=== PATIENT | female | born 1980 | race Caucasian/White ===

== ENCOUNTER → 2020-06-27 10:06 | Outpatient (BNVA) | payer MEDICARE, MEDICAID, SELFPAY | PROVIDERS: PCP Internal Medicine; Visit Provider Hospitalist | DX: J45.50 Severe persistent asthma, uncomplicated (principal); J84.9 Interstitial pulmonary disease, unspecified; D80.1 Nonfamilial hypogammaglobulinemia; F17.210 Nicotine dependence, cigarettes, uncomplicated; Z79.52 Long term (current) use of systemic steroids | CPT/HCPCS: 99212 ==

== ENCOUNTER → 2020-09-27 09:11 | Outpatient (BNVA) | payer MEDICARE, MEDICAID, SELFPAY | PROVIDERS: PCP Internal Medicine; Visit Provider Hospitalist | DX: Z76.89 Persons encountering health services in other specified circumstances (principal) | CPT/HCPCS: 99212 ==

== ENCOUNTER 2020-12-25 13:36 | Outpatient (REF) | payer OTHER, SELFPAY ==
--- NOTE | ~2020-12-25 | XR_ITS ---
EXAMINATION: XR CHEST CLINICAL INFORMATION: COPD. COMPARISON: 10/08/2019 and 06/04/2017 TECHNIQUE: Two views of the chest were obtained. FINDINGS: There is no evidence of acute parenchymal disease, pneumothorax, or pleural effusion. Heart normal size. No evidence of pulmonary edema. Suture line from previous left lung surgery again seen. Bilateral old healed rib fractures present. XR/XR chest 2V IMPRESSION: No acute disease.
[2020-12-25 14:45] LABS: MANUAL DIFF FLAG NO
[2020-12-25 14:47] LABS: Basophils Absolute Auto 0.1 X10*3/uL (0.0-0.2); Basophils Percent Auto 0.9 % (0-2); Eosinophils Absolute Auto 0.1 X10*3/uL (0.0-0.4); Eosinophils Percent Auto 0.8 % (0-4); Hemoglobin 14.8 g/dl (12.0-16.0); Imm Gran Abs Auto 0.24 X10*3/uL (0.00-0.03); Imm Gran Pct Auto 1.7 % (0.0-0.4); Lymphocytes Percent Auto 13.9 % (20-40); Mean Corpuscular HGB Conc 32.2 g/dl (31.0-35.0); Mean Corpuscular Hemoglobin 28.2 pg (27.0-33.0); Mean Corpuscular Volume 87.8 fL (80-98); Mean Platelet Volume 11.3 fL (9.4-12.3); Monocytes Absolute Auto 0.6 X10*3/uL (0.1-1.2); Monocytes Percent Auto 4.4 % (2-11); Neutrophils Absolute Auto 11.4 X10*3/uL (2.0-8.3); Neutrophils Percent Auto 78.3 % (45-73); Platelet Count 232 X10*3/uL (160-400); Red Blood Count 5.24 X10*6/uL (4.20-5.50); Red Cell Distribution Width 16.9 % (11.0-16.0); White Blood Count 14.5 X10*3/uL (4.8-10.8)
[2020-12-25 15:19] LABS: Anion Gap 16 (12-20); Blood Urea Nitrogen 12 mg/dL (9-16); Calcium 9.5 mg/dL (8.4-10.2); Carbon Dioxide 25 mmol/L (22-29); Chloride 103 mmol/L (96-108); Estimated Glomerular Filt Rate > 60; Glucose Random 96 mg/dL (60-115); Potassium 4.6 mmol/L (3.3-5.1); Sodium 139 mmol/L (135-145)
[2020-12-25 15:27] LABS: Erythrocyte Sedimentation Rate 23 MM/HR (0-20)
[2020-12-27 21:53] LABS: Immunoglobulin E <2 kU/L (<OR=114)
[2020-12-28 12:21] LABS: IgA 137 mg/dL (47-310); IgG 786 mg/dL (600-1640); IgM 63 mg/dL (50-300)
== END 2020-12-25 13:37 | disposition home or self-care (01) ==
LOC: HO.LAB 13:36
PROVIDERS: PCP Internal Medicine; Visit Provider Hospitalist
DX: J44.9 Chronic obstructive pulmonary disease, unspecified (principal); J84.9 Interstitial pulmonary disease, unspecified; D80.1 Nonfamilial hypogammaglobulinemia; R05 Cough; F17.210 Nicotine dependence, cigarettes, uncomplicated; Z71.6 Tobacco abuse counseling
CPT/HCPCS: 36415; 71046; 80048; 82784; 82785; 85025; 85652; 99212

== ENCOUNTER 2021-01-22 11:02 | Outpatient (REF) | payer OTHER, SELFPAY ==
[2021-01-22 12:25] LABS: MANUAL DIFF FLAG NO
[2021-01-22 12:29] LABS: Basophils Absolute Auto 0.1 X10*3/uL (0.0-0.2); Basophils Percent Auto 0.4 % (0-2); Eosinophils Absolute Auto 0.1 X10*3/uL (0.0-0.4); Eosinophils Percent Auto 0.4 % (0-4); Hematocrit 44.4 % (37-47); Hemoglobin 14.4 g/dl (12.0-16.0); Imm Gran Abs Auto 0.39 X10*3/uL (0.00-0.03); Lymphocytes Percent Auto 15.5 % (20-40); Mean Corpuscular HGB Conc 32.4 g/dl (31.0-35.0); Mean Corpuscular Hemoglobin 28.5 pg (27.0-33.0); Mean Corpuscular Volume 87.7 fL (80-98); Mean Platelet Volume 10.6 fL (9.4-12.3); Monocytes Percent Auto 5.3 % (2-11); Neutrophils Percent Auto 76.4 % (45-73); Platelet Count 261 X10*3/uL (160-400); Red Blood Count 5.06 X10*6/uL (4.20-5.50); Red Cell Distribution Width 16.5 % (11.0-16.0); White Blood Count 19.6 X10*3/uL (4.8-10.8)
[2021-01-22 12:41] LABS: Alanine Aminotransferase 24 U/L (0-31); Albumin Level 3.9 g/dL (3.5-5.0); Alkaline Phosphatase 78 U/L (39-117); Anion Gap 14 (12-20); Aspartate Amino Transferase 15 U/L (5-31); Bilirubin Direct 0.2 mg/dL (0.0-0.5); Bilirubin Total 0.5 mg/dL (0.0-1.0); Blood Urea Nitrogen 10 mg/dL (9-16); Calcium 9.4 mg/dL (8.4-10.2); Carbon Dioxide 24 mmol/L (22-29); Chloride 106 mmol/L (96-108); Estimated Glomerular Filt Rate > 60; Glucose Random 102 mg/dL (60-115); Potassium 3.5 mmol/L (3.3-5.1); Sodium 140 mmol/L (135-145); Total Protein 6.5 g/dL (6.5-8.0)
[2021-01-22 13:04] LABS: TSH reflex Free T4 1.15 uIU/mL (0.32-4.0)
[2021-01-22 13:13] LABS: Erythrocyte Sedimentation Rate 27 MM/HR (0-20)
[2021-01-23 18:32] LABS: Immunoglobulin G Subclass 1 380 mg/dL (382-929); Immunoglobulin G Subclass 2 275 mg/dL (241-700); Immunoglobulin G Subclass 3 23 mg/dL (22-178); Immunoglobulin G Subclass 4 15.3 mg/dL (4-86); Immunoglobulin G Total 739 mg/dL (600-1640)
[2021-01-24 04:57] LABS: Immunoglobulin E <2 kU/L (<OR=114)
[2021-01-24 13:57] LABS: IgA 143 mg/dL (47-310); IgG 757 mg/dL (600-1640); IgM 62 mg/dL (50-300)
== END 2021-01-22 11:03 | disposition home or self-care (01) ==
LOC: HO.LAB 11:02
PROVIDERS: PCP Internal Medicine; Visit Provider Hospitalist
DX: J45.50 Severe persistent asthma, uncomplicated (principal); J84.9 Interstitial pulmonary disease, unspecified; D80.1 Nonfamilial hypogammaglobulinemia; R00.0 Tachycardia, unspecified; R05 Cough; F17.200 Nicotine dependence, unspecified, uncomplicated; Z71.6 Tobacco abuse counseling
CPT/HCPCS: 36415; 80048; 80076; 82784; 82785; 84443; 85025; 85652; 96372; 99212; J2930

== ENCOUNTER → 2021-02-06 13:18 | Outpatient (BNVA) | payer OTHER, SELFPAY | PROVIDERS: PCP Internal Medicine; Visit Provider Hospitalist | DX: J84.9 Interstitial pulmonary disease, unspecified (principal); D80.1 Nonfamilial hypogammaglobulinemia; J44.9 Chronic obstructive pulmonary disease, unspecified; R05 Cough; F17.200 Nicotine dependence, unspecified, uncomplicated | CPT/HCPCS: 99212 ==

== ENCOUNTER → 2021-04-03 13:04 | Outpatient (BNVA) | payer OTHER, SELFPAY | PROVIDERS: PCP Internal Medicine; Visit Provider Hospitalist | DX: J44.9 Chronic obstructive pulmonary disease, unspecified (principal); J84.9 Interstitial pulmonary disease, unspecified; D80.1 Nonfamilial hypogammaglobulinemia; F17.200 Nicotine dependence, unspecified, uncomplicated; Z79.899 Other long term (current) drug therapy | CPT/HCPCS: 99212 ==

== ENCOUNTER → 2021-07-03 12:58 | Outpatient (BNVA) | payer OTHER, SELFPAY | PROVIDERS: PCP Internal Medicine; Visit Provider Hospitalist | DX: J44.9 Chronic obstructive pulmonary disease, unspecified (principal); J45.50 Severe persistent asthma, uncomplicated; J84.9 Interstitial pulmonary disease, unspecified; D80.1 Nonfamilial hypogammaglobulinemia; R05.9 Cough, unspecified; F17.210 Nicotine dependence, cigarettes, uncomplicated; Z88.8 Allergy status to other drugs, medicaments and biological substances; Z88.0 Allergy status to penicillin; Z91.013 Allergy to seafood; Z79.52 Long term (current) use of systemic steroids | CPT/HCPCS: 99212 ==

== ENCOUNTER 2021-10-25 08:50 | Outpatient (REF) | payer OTHER, SELFPAY ==
--- NOTE | ~2021-10-25 | XR_ITS ---
EXAMINATION: XR chest 2V CLINICAL INFORMATION: Reason for Exam J44.9 - Chronic obstructive pulmonary disease, unspecified COMPARISON: Chest radiograph 12/25/2020 TECHNIQUE: 2 views of the chest XR/XR chest 2V FINDINGS/IMPRESSION: Clear lungs. No pneumothorax. No pleural effusion. Normal cardiomediastinal silhouette. New subacute appearing left posterior seventh rib fracture. Chronic healed left lateral ninth rib fracture appears unchanged from prior. Upper abdominal surgical clips.
[2021-10-25 09:58] LABS: MANUAL DIFF FLAG NO
[2021-10-25 10:11] LABS: Hematocrit 45.1 % (37.0-47.0); Hemoglobin 14.4 g/dl (12.0-16.0); Mean Corpuscular HGB Conc 31.9 g/dl (31.0-35.0); Mean Corpuscular Hemoglobin 29.5 pg (27.0-33.0); Mean Corpuscular Volume 92.4 fL (80.0-98.0); Red Blood Count 4.88 X10*6/uL (4.20-5.50); White Blood Count 11.3 X10*3/uL (4.8-10.8)
[2021-10-25 10:12] LABS: Basophils Absolute Auto 0.1 X10*3/uL (0.0-0.2); Eosinophils Absolute Auto 0.3 X10*3/uL (0.0-0.4); Eosinophils Percent Auto 2.4 % (0-4); Imm Gran Abs Auto 0.26 X10*3/uL (0.00-0.03); Imm Gran Pct Auto 2.3 % (0.0-0.4); Lymphocytes Absolute Auto 3.5 X10*3/uL (1.2-4.9); Lymphocytes Percent Auto 30.7 % (20-40); Mean Platelet Volume 10.2 fL (9.4-12.3); Monocytes Absolute Auto 0.8 X10*3/uL (0.1-1.2); Monocytes Percent Auto 6.9 % (2-11); Neutrophils Absolute Auto 6.4 x10*3/uL (2.0-8.3); Neutrophils Percent Auto 56.7 % (45-73); Platelet Count 248 X10*3/uL (160-400); Red Cell Distribution Width 16.4 % (11.0-16.0)
[2021-10-25 10:46] LABS: Alanine Aminotransferase 13 U/L (0-31); Albumin Level 3.6 g/dL (3.5-5.0); Alkaline Phosphatase 58 U/L (39-117); Anion Gap 13 (12-20); Aspartate Amino Transferase 11 U/L (5-31); Bilirubin Direct < 0.2 mg/dL (0.0-0.5); Bilirubin Total < 0.2 mg/dL (0.0-1.0); Blood Urea Nitrogen 12 mg/dL (9-16); Carbon Dioxide 24 mmol/L (22-29); Chloride 108 mmol/L (96-108); Estimated Glomerular Filt Rate > 60; Glucose Random 84 mg/dL (60-115); Potassium 4.6 mmol/L (3.3-5.1); Sodium 140 mmol/L (135-145); Total Protein 5.8 g/dL (6.5-8.0)
[2021-10-25 10:49] LABS: Erythrocyte Sedimentation Rate 11 MM/HR (0-20)
[2021-10-27 04:12] LABS: Immunoglobulin E <2 kU/L (<OR=114)
[2021-10-28 10:06] LABS: SARS COV2 IgG Positive (Negative)
[2021-10-29 13:01] LABS: Immunoglobulin G Subclass 1 299 mg/dL (382-929); Immunoglobulin G Subclass 2 205 mg/dL (241-700); Immunoglobulin G Subclass 3 25 mg/dL (22-178); Immunoglobulin G Subclass 4 16.4 mg/dL (4-86); Immunoglobulin G Total 560 mg/dL (600-1640)
== END 2021-10-25 08:51 | disposition home or self-care (01) ==
LOC: HO.XRAY 08:50
PROVIDERS: PCP Internal Medicine; Visit Provider Hospitalist
DX: J84.9 Interstitial pulmonary disease, unspecified (principal); J44.9 Chronic obstructive pulmonary disease, unspecified; J45.50 Severe persistent asthma, uncomplicated; D80.1 Nonfamilial hypogammaglobulinemia; F17.210 Nicotine dependence, cigarettes, uncomplicated; U09.9 Post COVID-19 condition, unspecified
CPT/HCPCS: 36415; 71046; 80048; 80076; 82784; 82785; 85025; 85652; 86769; 99212

== ENCOUNTER 2022-01-04 12:53 | Outpatient (REF) | payer OTHER, SELFPAY ==
--- NOTE | 2022-01-04 | PFT_ITS ---
FLOWS: FEV1 of 67% of predicted at 1.98 L. FVC of 75% of predicted at 2.70 L. FEV1 to FVC ratio of 0.74. No bronchodilator response. LUNG VOLUMES: Total lung capacity 85% of predicted at 4.19 L. Residual volume 103% of predicted at 1.58 L. Slow vital capacity 77% of predicted at 2.61 L. Expiratory reserve volume 16% of predicted at 0.19 L. Diffusion capacity is mildly decreased. IMPRESSION: No obstructive or restrictive ventilatory defect. Decreased expiratory reserve volume suggests extrathoracic restriction. Decreased diffusion capacity suggests emphysema. Nelson Mckeon MD AP/MODL / [id number]
== END 2022-01-04 12:54 | disposition home or self-care (01) ==
LOC: HO.RESP 12:53
PROVIDERS: PCP Internal Medicine; Visit Provider Hospitalist
DX: J45.909 Unspecified asthma, uncomplicated (principal); F17.210 Nicotine dependence, cigarettes, uncomplicated
CPT/HCPCS: 94060; 94727; 94729

== ENCOUNTER → 2022-01-25 12:50 | Outpatient (BNVA) | payer OTHER, SELFPAY | PROVIDERS: PCP Internal Medicine; Visit Provider Hospitalist | DX: J44.9 Chronic obstructive pulmonary disease, unspecified (principal); R05.9 Cough, unspecified; R00.0 Tachycardia, unspecified; U09.9 Post COVID-19 condition, unspecified; J84.9 Interstitial pulmonary disease, unspecified; D80.1 Nonfamilial hypogammaglobulinemia; F17.200 Nicotine dependence, unspecified, uncomplicated; Z79.82 Long term (current) use of aspirin; Z79.899 Other long term (current) drug therapy | CPT/HCPCS: 99212 ==

== ENCOUNTER → 2022-05-24 13:07 | Outpatient (BNVA) | payer OTHER, SELFPAY | PROVIDERS: PCP Internal Medicine; Visit Provider Hospitalist | DX: J44.9 Chronic obstructive pulmonary disease, unspecified (principal); J84.9 Interstitial pulmonary disease, unspecified; F17.200 Nicotine dependence, unspecified, uncomplicated; D80.1 Nonfamilial hypogammaglobulinemia; U09.9 Post COVID-19 condition, unspecified | CPT/HCPCS: 99212 ==

== ENCOUNTER → 2022-09-24 13:02 | Outpatient (BNVA) | payer OTHER, SELFPAY | PROVIDERS: PCP Internal Medicine; Visit Provider Hospitalist | DX: Z13.89 Encounter for screening for other disorder (principal) ==

== ENCOUNTER 2022-09-24 13:26 | Outpatient (REF) | payer OTHER, SELFPAY ==
--- NOTE | 2022-09-24 15:21 | PFT_ITS ---
INDICATION: Asthma. SPIROMETRY: FEV1 to FVC of 77% with an FEV1 of 2.14 L, which is 73% predicted and an FVC of 2.78 L, which is 77% predicted. No significant response to bronchodilator is noted. Maximum voluntary ventilation 60% of predicted. LUNG VOLUMES: Total lung capacity 88% predicted. DIFFUSION CAPACITY: DLCO of 69% of predicted. COMPARISONS: PFTs from 01/04/2022. INTERPRETATION: No obstructive, nor restrictive ventilatory defects identified. There is evidence of small airway disease consistent with a history of asthma and a moderate decrease in the maximum voluntary ventilation secondary to likely deconditioning. Lung volumes are normal except for decrease in the expiratory reserve volume secondary to an elevated BMI. The patient does have a mild diffusion impairment. When compared to December 2021, there is no significant change in the FVC, significant improvement in the FEV1, trend of decrease in the maximum voluntary ventilation, trend of improvement in the lung capacity, and trend of improvement in diffusion capacity. Clinical correlation warranted. MD DAREN Doshi/MODL / [id number]
== END 2022-09-24 13:27 | disposition home or self-care (01) ==
LOC: HO.RESP 13:26
PROVIDERS: PCP Internal Medicine; Visit Provider Hospitalist
DX: J44.9 Chronic obstructive pulmonary disease, unspecified (principal); U07.1 COVID-19
CPT/HCPCS: 94060; 94727; 94729; 99212

== ENCOUNTER 2023-01-02 13:10 | Outpatient (REF) | payer OTHER, SELFPAY ==
[2023-01-02 13:57] LABS: MANUAL DIFF FLAG NO
[2023-01-02 14:02] LABS: Basophils Absolute Auto 0.1 X10*3/uL (0.0-0.2); Eosinophils Absolute Auto 0.2 X10*3/uL (0.0-0.4); Eosinophils Percent Auto 1.7 % (0-4); Hematocrit 46.9 % (37.0-47.0); Hemoglobin 15.6 g/dl (12.0-16.0); Imm Gran Abs Auto 0.18 X10*3/uL (0.00-0.03); Imm Gran Pct Auto 1.5 % (0.0-0.4); Lymphocytes Absolute Auto 3.1 X10*3/uL (1.2-4.9); Lymphocytes Percent Auto 25.5 % (20-40); Mean Corpuscular HGB Conc 33.3 g/dl (31.0-35.0); Mean Corpuscular Hemoglobin 31.8 pg (27.0-33.0); Mean Corpuscular Volume 95.5 fL (80.0-98.0); Mean Platelet Volume 10.7 fL (9.4-12.3); Monocytes Absolute Auto 0.8 X10*3/uL (0.1-1.2); Monocytes Percent Auto 6.9 % (2-11); Neutrophils Absolute Auto 7.6 x10*3/uL (2.0-8.3); Neutrophils Percent Auto 63.4 % (45-73); Platelet Count 198 X10*3/uL (160-400); Red Blood Count 4.91 X10*6/uL (4.20-5.50); Red Cell Distribution Width 15.9 % (11.0-16.0)
[2023-01-02 14:41] LABS: Erythrocyte Sedimentation Rate 23 MM/HR (0-20)
[2023-01-02 14:47] LABS: Anion Gap 12 (12-20); Blood Urea Nitrogen 8 mg/dL (9-16); Calcium 9.2 mg/dL (8.4-10.2); Carbon Dioxide 23 mmol/L (22-29); Chloride 109 mmol/L (96-108); Estimated Glomerular Filt Rate > 60; Glucose Random 81 mg/dL (60-115); Potassium 3.9 mmol/L (3.3-5.1); Sodium 140 mmol/L (135-145)
[2023-01-08 15:54] LABS: SARS COV2 IgG Positive (Negative)
== END 2023-01-02 13:11 | disposition home or self-care (01) ==
LOC: HO.LAB 13:10
PROVIDERS: PCP Family Medicine; Visit Provider Hospitalist
DX: J44.9 Chronic obstructive pulmonary disease, unspecified (principal); J84.9 Interstitial pulmonary disease, unspecified; D80.1 Nonfamilial hypogammaglobulinemia; F17.210 Nicotine dependence, cigarettes, uncomplicated; Z79.52 Long term (current) use of systemic steroids; Z20.822 Contact with and (suspected) exposure to COVID-19
CPT/HCPCS: 36415; 80048; 85025; 85652; 86769; 99212

== ENCOUNTER 2023-06-04 09:32 | Outpatient (REF) | payer OTHER, SELFPAY ==
[2023-06-04 10:56] LABS: MANUAL DIFF FLAG NO
[2023-06-04 11:16] LABS: Basophils Absolute Auto 0.1 X10*3/uL (0.0-0.2); Basophils Percent Auto 0.8 % (0-2); Eosinophils Absolute Auto 0.1 X10*3/uL (0.0-0.4); Eosinophils Percent Auto 0.6 % (0-4); Hematocrit 44.6 % (37.0-47.0); Hemoglobin 15.2 g/dl (12.0-16.0); Imm Gran Abs Auto 0.32 X10*3/uL (0.00-0.03); Imm Gran Pct Auto 2.2 % (0.0-0.4); Lymphocytes Absolute Auto 2.3 X10*3/uL (1.2-4.9); Lymphocytes Percent Auto 15.9 % (20-40); Mean Corpuscular HGB Conc 34.1 g/dl (31.0-35.0); Mean Corpuscular Hemoglobin 34.9 pg (27.0-33.0); Mean Corpuscular Volume 102.3 fL (80.0-98.0); Mean Platelet Volume 10.6 fL (9.4-12.3); Monocytes Absolute Auto 0.9 X10*3/uL (0.1-1.2); Neutrophils Absolute Auto 10.8 x10*3/uL (2.0-8.3); Neutrophils Percent Auto 74.5 % (45-73); Platelet Count 237 X10*3/uL (160-400); Red Blood Count 4.36 X10*6/uL (4.20-5.50); Red Cell Distribution Width 17.3 % (11.0-16.0); White Blood Count 14.4 X10*3/uL (4.8-10.8)
[2023-06-04 11:50] LABS: Alanine Aminotransferase 26 U/L (0-31); Albumin Level 3.9 g/dL (3.5-5.0); Alkaline Phosphatase 73 U/L (39-117); Anion Gap 12 (12-20); Aspartate Amino Transferase 18 U/L (5-31); Bilirubin Total 0.4 mg/dL (0.0-1.0); Blood Urea Nitrogen 9 mg/dL (9-16); C Reactive Protein 1.16 mg/dL (< or = 0.50); Calcium 9.6 mg/dL (8.4-10.2); Carbon Dioxide 23 mmol/L (22-29); Chloride 108 mmol/L (96-108); Estimated Glomerular Filt Rate > 60; Glucose Random 87 mg/dL (60-115); Lipase 30 U/L (8-78); Potassium 3.9 mmol/L (3.3-5.1); Sodium 139 mmol/L (135-145); Total Protein 7.3 g/dL (6.5-8.0)
[2023-06-04 12:05] LABS: Thyroid Stimulating Hormone 1.99 uIU/mL (0.32-4.0)
[2023-06-05 16:08] LABS: CDiff Gene PCR NEGATIVE (Negative)
[2023-06-06 09:25] LABS: Adenovirus F 40/41 Not Detected (Not Detect.); Astrovirus Not Detected (Not Detect.); Campylobacter Not Detected (Not Detect.); Cryptosporidium Not Detected (Not Detect.); Cyclospora cayetanensis Not Detected (Not Detect.); E. coli EAEC Not Detected (Not Detect.); E. coli EPEC Not Detected (Not Detect.); E. coli ETEC Not Detected (Not Detect.); E. coli STEC Not Detected (Not Detect.); Entamoeba histolytica Not Detected (Not Detect.); Giardia lamblia Not Detected (Not Detect.); Norovirus GI/GII Not Detected (Not Detect.); Plesiomonas shigelloides Not Detected (Not Detect.); Rotavirus A Not Detected (Not Detect.); Salmonella Not Detected (Not Detect.); Sapovirus Not Detected (Not Detect.); Shigella sp./EIEC Not Detected (Not Detect.); Vibrio Not Detected (Not Detect.); Vibrio Cholerae Not Detected (Not Detect.); Yersinia enterocolitica Not Detected (Not Detect.)
[2023-06-06 12:57] LABS: Transglutaminase IgA <1.0 U/mL
[2023-06-07 23:48] LABS: Fecal Fat Qualitative Normal (Normal)
[2023-06-08 14:28] LABS: Endomysial IgA Antibody Negative (Negative)
[2023-06-11 19:38] LABS: Calprotectin, Fecal 10 mcg/g
[2023-06-13 03:38] LABS: Pancreatic Elastase-1 >500 mcg/g
== END 2023-06-04 09:33 | disposition home or self-care (01) ==
LOC: HO.LAB 09:32
PROVIDERS: PCP Family Medicine; Visit Provider Physician Assistant
DX: K52.9 Noninfective gastroenteritis and colitis, unspecified (principal); D80.1 Nonfamilial hypogammaglobulinemia; J84.9 Interstitial pulmonary disease, unspecified; K58.9 Irritable bowel syndrome, unspecified; R19.8 Other specified symptoms and signs involving the digestive system and abdomen; Z87.19 Personal history of other diseases of the digestive system
CPT/HCPCS: 36415; 80053; 82656; 82705; 83690; 83993; 84443; 85025; 86140; 86231; 86364; 87493; 87507; 99202

== ENCOUNTER 2023-06-04 09:32 | Outpatient (AMB) | payer OTHER, SELFPAY ==
[2023-06-04 09:40] VITALS: BP 114/89; PULSE 130; O2SAT 97; BMI 38.0
--- NOTE | 2023-06-04 09:40 | MHC.OFFVIS ---
Intake Vital Signs 06/04/23 09:40 Height 5 ft 3 in Weight 214 lb 4.629 oz BMI 38.0 BP 114/89 Blood Pressure Location Lt brachial Position Sitting Pulse 130 H Pulse Source Pulse Oximeter Pulse Oximetry (%) 97 Oxygen Delivery Method Room Air Intake Visit Reasons: Abdominal, diarrhea, Intake Note: Pt presents to the office today for abdominal pain and diarrhea. Pt states she has been having bowel issues since 2012. Pt states she gets random bouts of lower abdominal pain and diarrhea multiple times a day. Pt denies any N/V. Allergies iodine [IODINE] Allergy (Severe, Verified 06/04/23 09:42) RASH Penicillins [PENICILLINS] Allergy (Severe, Verified 06/04/23 09:42) THROAT CLOSES SHELLFISH Allergy (Severe, Uncoded 06/04/23 09:42) RASH Medication List - Last Reconciled 06/04/23 by Emily Zhao PA-C aripiprazole 2 mg PO DAILY biotin 5 mg PO DAILY 30 days calcium carbonate 500 mg PO BID doxycycline hyclate 100 mg PO DAILY epinephrine IM PRN [id number]-yinkyhgjz-blzdkdco 200-62.5-25 mcg (Trelegy Ellipta) 1 inh inhalation DAILY 30 days folic acid 1 mg PO DAILY furosemide (Lasix) 20 mg PO DAILY 14 days gabapentin 100 mg PO TID immun glob G(IgG)-pro-IgA 0-50 1 gram/5 mL (20 %) (Hizentra) mL subcut ipratropium bromide 1 spray intranasal TID 30 days ipratropium-albuterol 0.5 mg-3 mg(2.5 mg base)/3 mL 3 mL inhalation QID lorazepam 0.5 mg PO DAILY PRN mirtazapine 15 mg PO BEDTIME montelukast 10 mg PO DAILY prazosin 1 mg PO BEDTIME prednisone 10 mg (2 x 5 mg) PO DAILY prednisone 3 mg (3 x 1 mg) PO DAILY trazodone 100 mg PO BEDTIME Ventolin HFA 90 mcg/actuation (albuterol sulfate) 2 puffs inhalation Q4H PRN NS HPI HPI Comments History of Present Illness Details A 42 y/o female referred after being evaluated by director of collections and archives in another facility. She presents today tells me that she went to [facility]- 3 weeks ago x 2-N/V/ D-epigastric pain dx- with pancreatitis- she had a CT scan-dx w/ pancreatitis- mild elevation in lipase-no real indication of pancreatitis She then was seen at [place] [facility]- all was revealed- NO pancreatitis-diphenoxyl 1 QID Shes not happy with provider there-then referrred to [facility] Today- C/o diarrhea- 5-6 times a day-since 2013 lory- Tacycardia typically> 11 0 No nausea, vomiting, hematemesis, hematochezia, fever, chills, chest pain or shortness of breath. She has no headaches or dizzinss [facility] Medical History (Updated 06/04/23 @ 13:57 by Emily Zhao PA-C) [id number] syndrome Tobacco dependence Asthma-COPD overlap syndrome Cough Hypogammaglobulinemia ILD (interstitial lung disease) Asthma Surgical History (Updated 06/04/23 @ 10:06 by Emily Zhao PA-C) Hx of cholecystectomy Family History (Updated 06/04/23 @ 10:06 by Emily Zhao PA-C) Family/Other No family history of colorectal cancer Social History Patient Tobacco Use Status: Current everyday Tobacco user Tobacco use type: Cigarette Cigarette Packs Per Day: 0.5 Cigarettes Per Day: 10 Years Smoked: 20 years Review of Systems Const All systems reviewed & are unremarkable except as noted in HPI and below Denies headache(s) ENT Denies dizziness and Denies headache(s) Card Denies chest pain and Denies dyspnea Resp Denies dyspnea GI Denies abdominal pain, Denies hematochezia, Reports GI cramping, Denies heartburn and Reports diarrhea Denies abnormal menses Musc Reports back pain Neuro Denies dizziness and Denies headache(s) Psych Reports anxiety and Reports depression Physical Exam Vital Signs: Last Vital Signs Pulse 130 H 06/04/23 09:40 BP 114/89 06/04/23 09:40 Pulse Ox 97 06/04/23 09:40 Oxygen Delivery Method Room Air 06/04/23 09:40 BMI result Body Mass Index 38.0 Const General: cooperative, comfortable and no acute distress Nutritional Appearance: overweight Limitations: no limitations Eyes Sclerae: sclerae normal Resp Effort & Inspection: normal respiratory effort and able to speak in complete sentences Auscultation: diminished lung sounds Cardio Other: [id number] Rate: tachycardic Rhythm: regular rhythm GI Palpation (GI): Soft to palpation, nontender and no guarding Auscultation: normal bowel sounds Skin General skin exam: no rashes or lesions noted Extrem General: Yes full ROM Psych Speech and movement: Clear speech present Affect: normal affect Attitude: cooperative Thought process: Normal thought process present Thought content: Normal thought content present Results Reviewed Results Reviewed: Reviewed previous GI note from [place]-05/15/23 Assessment & Plan Assessment & Plan (1) Chronic diarrhea: Code(s): K52.9 - Noninfective gastroenteritis and colitis, unspecified Plan: Labs Stool studies (2) Hypogammaglobulinemia: Code(s): D80.1 - Nonfamilial hypogammaglobulinemia (3) ILD (interstitial lung disease): Comment: persistent asthma in addition to chronic smoking related interstitial lung disease She has been steroid dependent Code(s): J84.9 - Interstitial pulmonary disease, unspecified (4) Hx of pancreatitis: Comment: Reviewing previous GI consult-pancreatitis was not indicated Will get labs for further eval Code(s): Z87.19 - Personal history of other diseases of the digestive system (5) Referred by another general practitioner: Comment: Seen by PCP, director of collections and archives, referred to [facility] for 2nd opinion Difficult to assess-due to previous documentation unclear dx Code(s): Z02.89 - Encounter for other administrative examinations Plan: Will consult with MD for any unusual /complex findings Plan Will consult with MD for any unusual /complex finding Orders: Orders Pancreatic Elastase-1 Today D80.1 - Nonfamilial hypogammaglobulinemia, K52.9 - Noninfective gastroenteritis and colitis, unspecified C Reactive Protein Today K52.9 - Noninfective gastroenteritis and colitis, unspecified Complete Blood Count Auto Diff Today K52.9 - Noninfective gastroenteritis and colitis, unspecified Comprehensive Met. Panel Today K58.9 - Irritable bowel syndrome without diarrhea GI Panel Today R19.7 - Diarrhea, unspecified Lipase Today D80.1 - Nonfamilial hypogammaglobulinemia, K52.9 - Noninfective gastroenteritis and colitis, unspecified, Z87.19 - Personal history of other diseases of the digestive system Calprotectin, Fecal Today R19.7 - Diarrhea, unspecified CDiff Gene PCR Today R19.7 - Diarrhea, unspecified Fecal Fat Qualitative Today K52.9 - Noninfective gastroenteritis and colitis, unspecified Endomysial IgA rflx Titer Today K52.9 - Noninfective gastroenteritis and colitis, unspecified Thyroid Stimulating Hormone Today R19.8 - Other specified symptoms and signs involving the digestive system and abdomen Transglutaminase IgA Today R19.7 - Diarrhea, unspecified Patient Instructions: Labs and stool studies today Continue usual medication Encouraged to call questions or concerns Opportunity for questions many asked answered to her satisfaction Quality Reporting (2019) Adult ([facility] 138/10/02/68) Smoking risk assessment performed?: Yes Patient Tobacco Use Status: Current everyday Tobacco user Coding Level of Care Code New Pt Level 4 (94661) Diagnoses Chronic diarrhea K52.9 Hypogammaglobulinemia D80.1 ILD (interstitial lung disease) J84.9 Hx of pancreatitis Z87.19 Referred by another general practitioner Z02.89 Time Spent (min) 45 Comment 2nd opinion
== END 2023-06-04 10:24 | disposition home or self-care (01) ==
PROVIDERS: PCP Family Medicine; Visit Provider Physician Assistant
DX: K52.9 Noninfective gastroenteritis and colitis, unspecified (principal); D80.1 Nonfamilial hypogammaglobulinemia; J84.9 Interstitial pulmonary disease, unspecified; Z87.19 Personal history of other diseases of the digestive system
CPT/HCPCS: 99204

== ENCOUNTER 2023-07-11 13:00 | Outpatient (AMB) | payer OTHER, SELFPAY ==
--- NOTE | 2023-07-11 13:04 | MHC.OFFVIS ---
Intake Vital Signs 07/11/23 13:06 Weight 217 lb 2.485 oz BP 118/78 Blood Pressure Location Rt brachial Position Sitting Pulse 112 H Pulse Source Pulse Oximeter Pulse Oximetry (%) 97 Oxygen Delivery Method Room Air Intake Visit Reasons: Asthma Allergies iodine [IODINE] Allergy (Severe, Verified 07/11/23 13:08) RASH Penicillins [PENICILLINS] Allergy (Severe, Verified 07/11/23 13:08) THROAT CLOSES SHELLFISH Allergy (Severe, Uncoded 07/11/23 13:08) RASH Medication List - Last Reconciled 07/11/23 by Izabela Tinsley LPN aripiprazole 2 mg PO DAILY azathioprine (Imuran) 150 mg (3 x 50 mg) PO DAILY 90 days biotin 5 mg PO DAILY 30 days calcium carbonate 500 mg PO BID doxycycline hyclate 100 mg PO DAILY epinephrine IM PRN hgnphyksush-ucgekjzwv-dybwmmfl 200-62.5-25 mcg (Trelegy Ellipta) 1 inh inhalation DAILY 30 days folic acid 1 mg PO DAILY furosemide (Lasix) 20 mg PO DAILY 14 days gabapentin 100 mg PO TID immun glob G(IgG)-pro-IgA 0-50 1 gram/5 mL (20 %) (Hizentra) mL subcut ipratropium bromide 1 spray intranasal TID 30 days ipratropium-albuterol 0.5 mg-3 mg(2.5 mg base)/3 mL 3 mL inhalation QID lorazepam 0.5 mg PO DAILY PRN mirtazapine 15 mg PO BEDTIME montelukast 10 mg PO DAILY prazosin 1 mg PO BEDTIME prednisone 10 mg (2 x 5 mg) PO DAILY prednisone 3 mg (3 x 1 mg) PO DAILY trazodone 100 mg PO BEDTIME Ventolin HFA 90 mcg/actuation (albuterol sulfate) 2 puffs inhalation Q4H PRN NS HPI HPI Comments History of Present Illness Details The patient is a 42 year-old woman known severe persistent asthma in addition to chronic smoking related interstitial lung disease in the form of respiratory bronchiolitis biopsy-proven and 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 05/24/2022 the patient is here for a pulmonary follow-up visit. Overall the patient has been doing relatively well. She is cutting down on the smoking significantly. Her mother is also quitting smoking which is making it easier for her. The patient has been able to decrease the prednisone down to 20 mg. she also continues on the Imuran. I am hopeful that we can start weaning down the prednisone further slowly by 1 mg once a week. A provide her with 1 mg tablets for her to be able to do so. She has been on chronic prednisone so therefore may be that she is going to be on a small dose chronically. Will have to address that when she is able to tolerate a lower dose. She continues to receive the Hizentra for her immunodeficiency. As far as her inhalers to responded very well to Trelegy. She feels that this is making a big difference in her life at this time. 09/24/2022 the patient is here for pulmonary follow-up visit. The patient continues to do relatively well. She had the flu and did take Tamiflu and she was sick during that time. The patient now has been weaning down for the prednisone course. She is down to 60 mg daily and she is slowly decreasing down to the goal of 10 mg daily. She also continues on the Imuran 150 mg daily. She does take folic acid and I will send for pot in order for her to address the adverse effects of alopecia. She unfortunately, she continues to smoke cigarettes. We have looked that a lot different options and alternatives to her to consider in order to provide the best smoking cessation. The patient does have issues with depression therefore Chantix would be dangerous as far as as her risk for worsening depression. Overall though her respiratory exam is better and she should continue to wean down from the prednisone. In the meantime she is going to work on trying to cut down the smoking by not smoking a full cigarettes at a time. Possibly using the same cigarettes 3-4 times to minimize on the smoke and the nicotine use. Will have her undergo pulmonary function studies and also have her consider pulmonary rehabilitation at this time which I do believe will be very effective in helping her with her underlying asthma COPD overlap syndrome in addition to helping her with her post COVID symptoms. 01/02/2023 the patient is here for pulmonary follow-up visit. The patient is doing very well. She is cutting down the prednisone down to 9 mg daily. She continues use her Trelegy with very good effect. She is also on Daliresp. Recently she was placed on Ozempic. She has lost about 13 lb. She also continues on the Imuran 150 mg daily. Her breathing significantly better. Chest not required her rescue inhaler and has not required any additional prednisone. Depression [facility] office also significantly better. Unfortunately she is still smoking. She is trying to quit although is very hard. We did review her pulmonary function studies that she had back in the winter of 2022 which demonstrated interval improvement in lung capacity which is reassuring. She was supposed to start pulmonary rehab but she is not able to at this time. I am hopeful that she can start pulmonary rehab soon. I do believe pulmonary rehab will be very affecting beneficial for the patient continues to get her IgG infusions. Will go ahead and check her blood work at this time. She is concerned about her COVID antibodies. She has not been vaccinated for COVID. 07/11/2023 the patient is here for a pulmonary follow-up visit. The patient overall has been doing better from a respiratory status. Unfortunately, she did develop pancreatitis and was admitted to the hospital briefly. Was felt to be drug-induced. The 2 potential culprits include the azathioprine and also the Daliresp. She stopped both. Her symptoms have been improving significantly. The patient has been able to be okay without the medications which is reassuring. She is also cutting down significantly on the smoking which is also helping the fact that she can come off the medicine. The patient also continues to be on 10 mg of prednisone. When she cut smoking further she is going to try cutting down slowly down to 7.5 mg daily she continues her respiratory therapy with good effect. Otherwise patient is without any other complaints. [facility] Medical History (Updated 07/13/23 @ 21:05 by Rafael Busch MD) [id number] syndrome Tobacco dependence Asthma-COPD overlap syndrome Cough Hypogammaglobulinemia ILD (interstitial lung disease) Asthma Surgical History (Updated 06/04/23 @ 10:06 by Emily Zhao PA-C) Hx of cholecystectomy Family History (Updated 06/04/23 @ 10:06 by Emily Zhao PA-C) Family/Other No family history of colorectal cancer Social History Patient Tobacco Use Status: Current everyday Tobacco user Tobacco use type: Cigarette Cigarette Packs Per Day: 0.5 Cigarettes Per Day: 10 Years Smoked: 20 years Review of Systems Const Denies night sweats and Reports weight gain ENT Denies change in voice, Denies lip swelling, Denies mouth pain, Reports nasal congestion, Reports nasal discharge and Denies tongue swelling Card Denies chest pain, Reports edema, Reports leg edema, Denies dyspnea and Reports dyspnea on exertion Resp Denies chest congestion, Reports cough, Denies dyspnea, Reports dyspnea on exertion and Denies wheezing GI Denies abdominal pain Musc Denies no additional complaints Neuro Denies Neuro-related abnormal movements Psych Denies no additional complaints Leroy/Lymph Denies easy bleeding and Denies lymphadenopathy Aller/Immun Denies lip swelling, Denies tongue swelling and Denies wheezing Physical Exam Vital Signs: Last Vital Signs Pulse 112 H 07/11/23 13:06 BP 118/78 07/11/23 13:06 Pulse Ox 97 07/11/23 13:06 Oxygen Delivery Method Room Air 07/11/23 13:06 Const General: alert Neck Neck: Yes normal visual inspection, Yes full ROM and Yes no lymphadenopathy Chest Chest palpation & inspection: normal inspection of the chest Resp Auscultation: no wheezes and diminished lung sounds Cardio Rate: tachycardic Rhythm: regular rhythm Heart sounds: S1 normal heart sound present and S2 normal heart sound present GI Palpation (GI): Soft to palpation and nontender Auscultation: normal bowel sounds Skin General skin exam: rashes and/or lesions noted Extrem General: No clubbing, No cyanosis and Yes edema Assessment & Plan Assessment & Plan (1) Asthma-COPD overlap syndrome: Code(s): J44.9 - Chronic obstructive pulmonary disease, unspecified (2) ILD (interstitial lung disease): Comment: persistent asthma in addition to chronic smoking related interstitial lung disease She has been steroid dependent Code(s): J84.9 - Interstitial pulmonary disease, unspecified (3) Tobacco dependence: Code(s): F17.200 - Nicotine dependence, unspecified, uncomplicated (4) Cough: Code(s): R05 - Cough Qualifiers: Cough type: chronic Qualified Code(s): R05.3 - Chronic cough (5) Hypogammaglobulinemia: Code(s): D80.1 - Nonfamilial hypogammaglobulinemia Plan continue prednisone 10mg daily Pulmonary rehab continue Ipratropium continue Trelegy 200 stopped Imuran 150mg daily/folic acid due to pancreatitis Tobacco cessation stopped Daliresp, continue singular continue IgG therapy follow-up 4-6 months Medications: New prednisone 10 mg PO DAILY 30 days 30 tabs 7RF Discontinued prednisone Discontinued Reason: Doctor's Order 10 mg (2 x 5 mg) PO DAILY 60 tabs 6RF azathioprine (Imuran) Discontinued Reason: Doctor's Order 150 mg (3 x 50 mg) PO DAILY 90 days 270 tabs 1RF Quality Reporting (2019) Adult ([facility] ) Smoking risk assessment performed?: Yes Patient Tobacco Use Status: Current everyday Tobacco user Coding Level of Care Code Est Pt Level 4 (76886) Diagnoses Asthma-COPD overlap syndrome J44.9 ILD (interstitial lung disease) J84.9 Tobacco dependence F17.200 Chronic cough R05.3 Cough type: chronic Hypogammaglobulinemia D80.1 Time Spent (min) 16
[2023-07-11 13:06] VITALS: BP 118/78; PULSE 112; O2SAT 97
== END 2023-07-11 13:26 | disposition home or self-care (01) ==
PROVIDERS: PCP Family Medicine; Visit Provider Hospitalist
DX: J44.9 Chronic obstructive pulmonary disease, unspecified (principal); J84.9 Interstitial pulmonary disease, unspecified; F17.200 Nicotine dependence, unspecified, uncomplicated; R05.3 Chronic cough; D80.1 Nonfamilial hypogammaglobulinemia
CPT/HCPCS: 99214

== ENCOUNTER → 2023-07-11 13:00 | Outpatient (BNVA) | payer OTHER, SELFPAY | PROVIDERS: PCP Family Medicine; Visit Provider Hospitalist | DX: J44.9 Chronic obstructive pulmonary disease, unspecified (principal); J84.9 Interstitial pulmonary disease, unspecified; D80.1 Nonfamilial hypogammaglobulinemia; R05.3 Chronic cough; F17.210 Nicotine dependence, cigarettes, uncomplicated | CPT/HCPCS: 99212 ==

== ENCOUNTER 2023-10-06 10:57 | Outpatient (AMB) | payer OTHER, SELFPAY ==
--- NOTE | 2023-10-06 11:06 | A.OFFVIS_ITS ---
Intake Vital Signs 10/06/23 11:10 Height 5 ft 3 in Weight 226 lb 10.163 oz BMI 40.1 BP 116/83 Blood Pressure Location Lt brachial Position Sitting Pulse 114 H Intake Visit Reasons: follow up on day T is here Intake Note: Patient is seen in office for follow up visit, following abdominal pain and diarrhea. 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 Accompanied by: Self / Same As Patient Allergies iodine [IODINE] Allergy (Severe, Verified 10/06/23 11:08) RASH Penicillins [PENICILLINS] Allergy (Severe, Verified 10/06/23 11:08) THROAT CLOSES SHELLFISH Allergy (Severe, Uncoded 10/06/23 11:08) RASH Medication List - Last Reconciled 10/06/23 by Emily Zhao PA-C aripiprazole 2 mg PO DAILY calcium carbonate 500 mg PO BID doxycycline hyclate 100 mg PO DAILY epinephrine IM PRN folic acid 1 mg PO DAILY gabapentin 100 mg PO TID immun glob G(IgG)-pro-IgA 0-50 1 gram/5 mL (20 %) (Hizentra) mL subcut ipratropium bromide 1 spray intranasal TID 30 days ipratropium-albuterol 0.5 mg-3 mg(2.5 mg base)/3 mL 3 mL inhalation QID lorazepam 0.5 mg PO DAILY PRN mirtazapine 15 mg PO BEDTIME montelukast 10 mg PO DAILY prazosin 1 mg PO BEDTIME prednisone 10 mg PO DAILY 30 days prednisone 3 mg (3 x 1 mg) PO DAILY trazodone 100 mg PO BEDTIME Ventolin HFA 90 mcg/actuation (albuterol sulfate) 2 puffs inhalation Q4H PRN NS HPI HPI Comments History of Present Illness Details A 42-year-old female hypogammaglobulonemia-s/p lory- 2014-seen initially in May for 2nd opinion who is history of pancreatitis here to follow-up. Seen by [facility]-previously [facility] when She has uncontrollable diarrhea-for years 5-6 loose/ watery QD-no blood - belly cramping mildly improves after BM Abdominal bloating-symptoms interrupt her daily activity she admits to frustration. 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 Tobacco dependence Asthma-COPD overlap syndrome Cough Hypogammaglobulinemia ILD (interstitial lung disease) Asthma Surgical History (Updated 06/04/23 @ 10:06 by Emily Zhao PA-C) Hx of cholecystectomy Family History (Updated 06/04/23 @ 10:06 by Emily Zhao PA-C) Family/Other No family history of colorectal cancer Social History Patient Tobacco Use Status: Current everyday Tobacco user Tobacco use type: Cigarette Cigarette Packs Per Day: 0.5 Cigarettes Per Day: 10 Years Smoked: 20 years Review of Systems Const All systems reviewed & are unremarkable except as noted in HPI and below Card Denies chest pain and Denies dyspnea Resp Denies dyspnea GI Denies abdominal pain, Reports bloating, Denies hematochezia, Reports tenesmus, Reports GI cramping, Denies heartburn, Reports diarrhea, Denies nausea, Denies vomiting and Denies hematemesis Physical Exam Vital Signs: Last Vital Signs Pulse 114 H 10/06/23 11:10 BP 116/83 10/06/23 11:10 BMI result Body Mass Index 40.1 Const General: cooperative and no acute distress Nutritional Appearance: overweight Orientation/consciousness: patient oriented x3 Limitations: no limitations Eyes Sclerae: sclerae normal Resp Effort & Inspection: normal respiratory effort and able to speak in complete sentences Auscultation: clear to auscultation bilaterally, no rales, no rhonchi and no wheezes Cardio Rate: tachycardic (A GA 100) Rhythm: regular rhythm Heart sounds: S1 normal heart sound present and S2 normal heart sound present GI Palpation (GI): Soft to palpation, Tenderness to palpation present (GI) (Diffuse tenderness), no guarding and No Rebound tenderness present Auscultation: normal bowel sounds Neuro General: patient oriented x3 Extrem General: Yes full ROM Psych Speech and movement: Clear speech present Affect: normal affect Attitude: cooperative Thought content: Normal thought content present Assessment & Plan Assessment & Plan (1) Referred by another general practitioner: Comment: 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, 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, 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 to [facility] for 2nd opinion Difficult to assess- Code(s): Z02.89 - Encounter for other administrative examinations (2) Hx of pancreatitis: Comment: Reviewing previous GI consult-pancreatitis was not indicated Will get labs for further eval Code(s): Z87.19 - Personal history of other diseases of the digestive system (3) Chronic diarrhea: Comment: Abdominal cramping, diarrhea,- Code(s): K52.9 - Noninfective gastroenteritis and colitis, unspecified Plan: EGD/colonoscopy CTe -assess IBD (4) Hypogammaglobulinemia: Comment: Chronic diarrhea- MLc- CVID Code(s): D80.1 - Nonfamilial hypogammaglobulinemia Plan EGD/ colon-DR> TANVI Anesthesia consult- see pulmonary- CTe lactoferin c.diff Orders: Orders CDiff Gene PCR Today R19.7 - Diarrhea, unspecified Lactoferrin, Fecal, Quant. Today D80.1 - Nonfamilial hypogammaglobulinemia, K52.9 - Noninfective gastroenteritis and colitis, unspecified, Z87.19 - Personal history of other diseases of the digestive system CT enterography Today D80.1 - Nonfamilial hypogammaglobulinemia, E61.1 - Iron deficiency, K52.9 - Noninfective gastroenteritis and colitis, unspecified EGD/[place] Combo - GI Use Only Today D80.1 - Nonfamilial hypogammaglobulinemia, K52.9 - Noninfective gastroenteritis and colitis, unspecified, Z02.89 - Encounter for other administrative examinations, Z87.19 - Personal history of other diseases of the digestive system Medications: New polyethylene glycol 3350 (Miralax) Take as directed by mouth the day before your procedure. 238 grams PO ONCE 1 day PRN 238 grams 0RF laxative effect bisacodyl (Dulcolax (bisacodyl)) Day before procedure @ 12 noon Take 4 tablets by mouth followed by large glass of water 20 mg (4 x 5 mg) PO ONCE 1 day PRN 4 tabs 0RF colonoscopy prep Z12.11 - Encounter for screening for malignant neoplasm of colon Patient Instructions: EGD/ colon-DR> TANVI CTe-hopefully can get this scheduled so that we can offer her some relief/answers Anesthesia consult- see pulmonary- She will submit further stool studies call after they have been submitted for plan Imodium p.r.n. Encouraged to call with any questions or concerns Quality Reporting (2019) Adult ([facility] 138/10/02/68) Smoking risk assessment performed?: Yes Patient Tobacco Use Status: Current everyday Tobacco user Coding Level of Care Code Est Pt Level 4 (80722) Diagnoses Referred by another general practitioner Z02.89 Hx of pancreatitis Z87.19 Chronic diarrhea K52.9 Hypogammaglobulinemia D80.1 Time Spent (min) 30
[2023-10-06 11:10] VITALS: BP 116/83; PULSE 114; BMI 40.1
== END 2023-10-06 11:56 | disposition home or self-care (01) ==
PROVIDERS: PCP Family Medicine; Visit Provider Physician Assistant
DX: K52.9 Noninfective gastroenteritis and colitis, unspecified (principal); Z87.19 Personal history of other diseases of the digestive system; D80.1 Nonfamilial hypogammaglobulinemia
CPT/HCPCS: 99214

== ENCOUNTER → 2023-10-06 10:57 | Outpatient (BNVA) | payer OTHER, SELFPAY | PROVIDERS: PCP Family Medicine; Visit Provider Physician Assistant | DX: Z02.89 Encounter for other administrative examinations (principal); K52.9 Noninfective gastroenteritis and colitis, unspecified; D80.1 Nonfamilial hypogammaglobulinemia; Z87.19 Personal history of other diseases of the digestive system | CPT/HCPCS: 99212 ==

== ENCOUNTER 2023-11-19 14:27 | Outpatient (REF) | payer OTHER, SELFPAY ==
--- NOTE | ~2023-11-19 | CT_ITS ---
EXAMINATION: CT ENTEROGRAPHY ABDOMEN AND PELVIS WITH CONTRAST CLINICAL INFORMATION: 43-year-old female with RN deficiency anemia COMPARISON: None available. TECHNIQUE: Study performed with oral VoLumen (1350 mL) and 480 mL of water to distend the abdomen. The patient was injected with 85 mL Omnipaque 350 intravenous contrast which was administered without adverse effect. Coronal and sagittal reformatted images were obtained at the technologist's workstation. This CT examination was performed using dose optimization techniques as appropriate, variously including the following: *Automated exposure control *Adjustment of mA and/or kV according to patient size (this includes techniques or standardized protocols for targeted exams where dose is matched to indication/reason for exam; i.e. extremities or head) *Use of iterative reconstruction technique DLP: 718 mGy-cm FINDINGS: GASTROINTESTINAL FINDINGS: Stomach: Well-distended and normal in appearance. Small intestine: Satisfactorily distended and normal in appearance. Large intestine: Well-distended and normal in appearance. No perirectal changes demonstrated. The appendix is normal. Additional findings: No abnormal enhancement of the vasa recta or significant mesenteric or retroperitoneal lymphadenopathy is seen. No abdominal abscess or fistulous tract demonstrated. ABDOMINAL AND PELVIC CT FINDINGS: Liver, gallbladder, biliary tract: Unremarkable. Gallbladder is surgically absent. Pancreas: There are no masses or evidence of pancreatitis. Spleen: Normal in size and shape. Adrenal glands and kidneys: Adrenal glands revealed no nodularity. Both kidneys are normal without hydronephrosis, stones, masses. Ureters and bladder: Ureters are not dilated. Urinary bladder is partially distended without stones or masses. Lymphovascular structures: Abdominal aorta is not dilated. There is no mesenteric or retroperitoneal lymphadenopathy. Bones: There is mild compression deformities seen through the superior endplates of T11 and T10 of indeterminate age as well as healed fracture deformity of ribs #9 and 7 on the left of indeterminate age. Lung bases: There is linear scarring seen at the left lung base. CT/CT enterography IMPRESSION: 1. No abnormal findings in the GI tract. 2. Status post cholecystectomy. 3. Mild compression deformities of T10 and T11 of indeterminate age as well as healed fracture deformity of ribs #9 and 7 on the left.
[2023-11-19] MEDS: iohexoL 350 MG/ML 100 ML INFUS..BTL IV (16:01)
[2023-11-19] MEDS: Sorbitol/Mannit/Xanth Imaging 500 ML LIQUID 1500 ML PO (16:02)
== END 2023-11-19 14:28 | disposition home or self-care (01) ==
LOC: HO.CT 14:27
PROVIDERS: PCP Family Medicine; Visit Provider Physician Assistant
DX: K52.9 Noninfective gastroenteritis and colitis, unspecified (principal); D80.1 Nonfamilial hypogammaglobulinemia; E61.1 Iron deficiency
CPT/HCPCS: 74177; Q9967

== ENCOUNTER 2023-12-30 08:27 | Day surgery (SDC) | payer OTHER, SELFPAY ==
--- NOTE | 2023-12-26 14:33 | HO.ANESPROP2 ---
Documented by User: Felicity Christina NP 12/26/23 14:33 HPI - Anesthesia Eval Consult details Narrative: 43yo F for Upper Endoscopy and Colonoscopy PMFSH Active Problems Active Problems: All Active Problems Referred by another general practitioner (Acute) Hx of pancreatitis (Acute) Chronic diarrhea (Acute) COVID-19 (Acute) [id number] syndrome (Acute) Tachycardia (Acute) Tobacco dependence (Acute) Asthma-COPD overlap syndrome (Acute) Cough (Acute) Hypogammaglobulinemia (Acute) ILD (interstitial lung disease) (Acute) Asthma (Acute) Past Medical History Medical History [id number] syndrome Tobacco dependence Asthma-COPD overlap syndrome Cough Hypogammaglobulinemia ILD (interstitial lung disease) Asthma Family History Family History Family/Other No family history of colorectal cancer Surgical History Surgical History Hx of cholecystectomy Social History Social History Patient Tobacco Use Status: Current everyday Tobacco user Tobacco use type: Cigarette Cigarette Packs Per Day: 0.5 Cigarettes Per Day: 10.0 Years Smoked: 20 years Date Education Initiated: 12/30/23 Use of substances other than those prescribed or required for medical reasons: Yes Are you DNR?: No Advance Directives: No Advance Directives Information Provided: Yes Meds Allergies Allergy/AdvReac Type Severity Reaction Status Date / Time iodine [IODINE] Allergy Severe RASH Verified 10/06/23 11:08 Penicillins [PENICILLINS] Allergy Severe THROAT Verified 10/06/23 11:08 CLOSES SHELLFISH Allergy Severe RASH Uncoded 10/06/23 11:08 Home Medications ?Medication ?Instructions ?Recorded ?Confirmed ?Last Taken ?Type calcium carbonate 500 mg PO BID 06/27/20 12/30/23 Unknown History prazosin 1 mg capsule 1 mg PO BEDTIME 06/27/20 12/30/23 Unknown History aripiprazole 2 mg tablet 2 mg PO DAILY 02/06/21 12/30/23 Unknown History lorazepam 0.5 mg tablet 0.5 mg PO DAILY PRN Anxiety 02/06/21 12/30/23 Unknown History mirtazapine 15 mg tablet 15 mg PO BEDTIME 07/03/21 12/30/23 Unknown History epinephrine 0.3 mg/0.3 mL IM PRN 05/24/22 10/06/23 Unknown History injection, auto-injector gabapentin 100 mg capsule 100 mg PO TID 05/24/22 12/30/23 Unknown History immune glob G 1 gram/5 mL(20 ml subcut 05/24/22 10/06/23 Unknown History %)-prol-IgA 0-50 mcg/mL subcutaneous soln (Hizentra) trazodone 50 mg tablet 200 mg PO BEDTIME 05/24/22 12/30/23 Unknown History dulaglutide 1.5 mg/0.5 mL 1.5 mg subcut QWEEK 12/30/23 12/30/23 12/16/23 History subcutaneous pen injector Assessment and Plan Assessment Anesthesia Assessment: Chart Reviewed Documented by User: Esthela Stack MD 12/30/23 10:47 PMFSH Past Medical History Medical History [id number] syndrome Tobacco dependence Asthma-COPD overlap syndrome Cough Hypogammaglobulinemia ILD (interstitial lung disease) Asthma Family History Family History Family/Other No family history of colorectal cancer Family history of problems with anesthesia: No Surgical History Surgical History Hx of cholecystectomy History of Problems with Anesthesia: No Social History Social History Patient Tobacco Use Status: Current everyday Tobacco user Tobacco use type: Cigarette Cigarette Packs Per Day: 0.5 Cigarettes Per Day: 10.0 Years Smoked: 20 years Date Education Initiated: 12/30/23 Use of substances other than those prescribed or required for medical reasons: Yes Are you DNR?: No Advance Directives: No Advance Directives Information Provided: Yes Meds Allergies Allergy/AdvReac Type Severity Reaction Status Date / Time iodine [IODINE] Allergy Severe RASH Verified 10/06/23 11:08 Penicillins [PENICILLINS] Allergy Severe THROAT Verified 10/06/23 11:08 CLOSES SHELLFISH Allergy Severe RASH Uncoded 10/06/23 11:08 Home Medications ?Medication ?Instructions ?Recorded ?Confirmed ?Last Taken ?Type calcium carbonate 500 mg PO BID 06/27/20 12/30/23 Unknown History prazosin 1 mg capsule 1 mg PO BEDTIME 06/27/20 12/30/23 Unknown History aripiprazole 2 mg tablet 2 mg PO DAILY 02/06/21 12/30/23 Unknown History lorazepam 0.5 mg tablet 0.5 mg PO DAILY PRN Anxiety 02/06/21 12/30/23 Unknown History mirtazapine 15 mg tablet 15 mg PO BEDTIME 07/03/21 12/30/23 Unknown History epinephrine 0.3 mg/0.3 mL IM PRN 05/24/22 10/06/23 Unknown History injection, auto-injector gabapentin 100 mg capsule 100 mg PO TID 05/24/22 12/30/23 Unknown History immune glob G 1 gram/5 mL(20 ml subcut 05/24/22 10/06/23 Unknown History %)-prol-IgA 0-50 mcg/mL subcutaneous soln (Hizentra) trazodone 50 mg tablet 200 mg PO BEDTIME 05/24/22 12/30/23 Unknown History dulaglutide 1.5 mg/0.5 mL 1.5 mg subcut QWEEK 12/30/23 12/30/23 12/16/23 History subcutaneous pen injector Exam Airway Mallampati Class: II TM Dist: >3cm Heart: rrr Lungs: cta Assessment and Plan Assessment Anesthesia Assessment: Anesthesia Plan Discussed Final Anesthetic Review Family History of Problems with Anesthesia: No History of Problems with Anesthesia: No NPO: Yes ASA Class: III Final Preanesthetic Review: No Changes in Pt Med Stat, Meds/Allgs Chart Reviewed, Consent Obtained/Reviewed and Anes Risks/Benef Reviewed Patient Risk: Intermediate Procedure Risk: Low Anesthetic Plan Anesthetic Plan: MAC: Disposition: Standard PACU
[2023-12-30 09:47] VITALS: BP 129/95; PULSE 97; RESP 18; TEMP 36.1; O2SAT 97; BMI 41.4
[2023-12-30 09:52] LABS: UPreg QC Valid YES; Urine Pregnancy NEGATIVE (NEGATIVE)
[2023-12-30 10:08] VITALS: BMI 41.4
[2023-12-30] MEDS: Lactated Ringers 1,000 ML 100 ML IVCONT (10:09)
--- NOTE | 2023-12-30 10:12 | PC.NURSE ---
LScta,, pt reports breathing is wnl today and declines udn.
--- NOTE | 2023-12-30 10:31 | P.HPSUR_ITS ---
Pre-Procedural Eval Section A - 24 Hr Update-Section A only Date of Service: 12/30/23 Section B - Complete if H&P > 30 days Chief Complaint: Nonfamilial hypogammaglobulinemia,gastroenteritis Relevant Family History (Specify if Yes): No Relevant Social History: Tobacco Use Present Medications: see Short Stay Collaborative assessment Medical History: Significant History ([id number] syndrome Tobacco dependence Asthma-COPD overlap syndrome Cough Hypogammaglobulinemia ILD (interstitial lung disease) Asthma) History of Previous Operations: Relevant previous surgery/procedure and date(s) (Hx of cholecystectomy) Allergies: Allergies Allergy/AdvReac Type Severity Reaction Status Date / Time iodine [IODINE] Allergy Severe RASH Verified 10/06/23 11:08 Penicillins [PENICILLINS] Allergy Severe THROAT Verified 10/06/23 11:08 CLOSES SHELLFISH Allergy Severe RASH Uncoded 10/06/23 11:08 Review of Systems Sugical H&P ROS: Negative: Constitution, Cardiovascular, Respiratory, Neurological, Psychiatric, Hem-Onc, Allergic/Immunologic, Gastrointestinal, Ge nitourinary, Musculoskeletal, Integumentary, Endocrine and Eyes/Ears/Nose/Throat Exam Surgical H&P Exam: Normal: HEENT, Normal: Heart, Normal: Lungs, Normal: Extremities, Normal: Abdomen, Normal: Skin and Normal: Neurological Plan Diagnosis/Plan: Unchanged I have reviewed the history and physical and performed a pertinent physical examination on my patient. No changes have occurred unless specified. Time Spent With Patient Time: Total time managing care of this patient today ____ minutes.
--- NOTE | 2023-12-30 10:31 | HO.OPN-COLON ---
Colonoscopy Operative Note Operative Note Date of Service: 12/30/23 Narrative: Operative Information Procedure Description: EGD, Colonoscopy Indication: diarrhea Anesthesia: MAC FLEXIBLE TRANSORAL UPPER GASTROINTESTINAL ENDOSCOPY AND COLONOSCOPY PROCEDURE NOTE UPPER ENDOSCOPY Consent: Indications for the procedure and potential complications of bleeding, perforation, reaction to medications and missed diagnosis were discussed with the patient and informed consent was obtained. Instrument: Olympus GIF H 190 J mid size upper endoscope Monitoring: Vital signs and clinical assessment, continuous EKG monitoring, Pulse oximetry, Carbon Dioxide monitoring and blood pressure monitoring were done throughout the procedure. Procedure: The patient was placed in the left lateral decubitis position and pre-procedure medications were administered and a bite block was placed. The endoscope was inserted into the mouth and advanced under direct vision to the third part of duodenum. A careful inspection was made as the upper endoscope was withdrawn including a retroflexed examination of the proximal stomach; Findings and interventions are described below. Findings: Larynx:normal Esophagus: GE junction at 36 cm, diaphragm hiatus at 38 cm, consistent with 2 cm sliding hiatal hernia, with lax LES noted as well as esophagitis and erosions at GEJ, bx taken from here and distal esophagus Stomach: Patchy erythema Biopsies were obtained. Grade 2 flap valve on retroflexed examination of the cardia. Duodenum: Normal bulb and descending duodenum, bx taken Intervention: Biopsies as noted above, COLONOSCOPY Instrument: Olympus variable stiffness pediatric scope 190L Colonoscopy Monitoring: Vital signs and clinical assessment, continuous EKG monitoring, Pulse oximetry, Carbon Dioxide monitoring and blood pressure monitoring were done throughout the procedure. Colon withdrawal time was 9 minutes. Procedure: The patient was placed in the left lateral decubitis position and pre-procedure medications were administered. After a digital rectal examination of the ano-rectum, the video colonoscope was inserted into the rectum and advanced through the colon to the cecum/TI. The colonoscope was slowly withdrawn in a retrograde panoramic fashion and the colon mucosa was carefully examined including a retroflexed view of the rectum. Findings and interventions are described below. Procedure Difficulty:easy Findings: Terminal Ileum-normal, random bx taken Random colon bx taken Cecum:normal Ascending Colon: normal Transverse Colon -normal Descending Colon:normal Sigmoid Colon: normal Rectum: Retroflexion with small internal hemorrhoids, grade I Anorectum - normal Colon preparation: [place] Bowel Preparation Scale Right colon; 2 Transverse colon: 2 Left colon; 2 (0 = Unprepared colon segment with mucosa not seen due to solid stool that cannot be cleared. 1 = Portion of mucosa of the colon segment seen, but other areas of the colon segment not well seen due to staining, residual stool and/or opaque liquid. 2 = Minor amount of residual staining, small fragments of stool and/or opaque liquid, but mucosa of colon segment seen well. 3 = Entire mucosa of colon segment seen well with no residual staining, small fragments of stool or opaque liquid) Impression and Post Procedure Diagnosis: Endoscopy Findings: gastritis esophagitis hiatal hernia lax LES Colonoscopy Findings: internal hemorrhoids Plan: Await Pathology results Repeat Colonoscopy in 10 years or earlier if clinically indicated High fiber diet leaflet avoid straining at stool, epsom salts and sitz bath, anusol supps or cream trial of PPI and welchol Above findings were reviewed with the patient and relevant handouts were provided if indicated.
[2023-12-30 11:37] VITALS: BP 124/82; PULSE 93; RESP 16; TEMP 36.1; O2SAT 97
[2023-12-30 11:50] VITALS: BP 117/58; PULSE 84; RESP 18; TEMP 36.1; O2SAT 98
[2024-01-14 18:58] LABS: Lactase 40.2 (15.0-45.5); Maltase 191.2 (100.0-224.4); Palatinase 15.3 (5.0-26.3); Sucrase 57.5 (25.0-69.9)
== END 2023-12-30 13:44 | disposition home or self-care (01) ==
PROVIDERS: Nurse Practitioner; PCP Family Medicine; Visit Provider Internal Medicine Gastroenterology
PROC: (CPT 45380; principal; 2023-12-30 10:50)
DX: R19.7 Diarrhea, unspecified (principal); D80.1 Nonfamilial hypogammaglobulinemia; K64.0 First degree hemorrhoids; K29.70 Gastritis, unspecified, without bleeding; K20.90 Esophagitis, unspecified without bleeding; K22.89 Other specified disease of esophagus; K44.9 Diaphragmatic hernia without obstruction or gangrene; J44.9 Chronic obstructive pulmonary disease, unspecified; Z88.0 Allergy status to penicillin
CPT/HCPCS: 45380; 43239; 36415; 81025; 82657; 88305; 88312; 88313; 88342; J1596; J2704

== ENCOUNTER → 2023-12-30 08:27 | Outpatient (BNV) | payer OTHER, SELFPAY | PROVIDERS: PCP Family Medicine; Visit Provider Internal Medicine Gastroenterology | DX: R19.7 Diarrhea, unspecified (principal); K64.0 First degree hemorrhoids; K29.70 Gastritis, unspecified, without bleeding; K22.4 Dyskinesia of esophagus; K20.90 Esophagitis, unspecified without bleeding | CPT/HCPCS: 43239; 45380 ==

== ENCOUNTER 2024-01-15 13:06 | Outpatient (AMB) | payer OTHER, SELFPAY ==
[2024-01-15 13:12] VITALS: PULSE 90; O2SAT 97; BMI 38.1
--- NOTE | 2024-01-15 13:12 | A.OFFVIS_ITS ---
Vital Signs 01/15/24 13:12 Height 5 ft 3 in Weight 215 lb BMI 38.1 Pulse 90 Pulse Source Pulse Oximeter Pulse Oximetry (%) 97 Oxygen Delivery Method Room Air Intake Visit Reasons: Asthma Allergies iodine [IODINE] Allergy (Severe, Verified 01/15/24 13:13) RASH Penicillins [PENICILLINS] Allergy (Severe, Verified 01/15/24 13:13) THROAT CLOSES SHELLFISH Allergy (Severe, Uncoded 01/15/24 13:13) RASH HPI Comments Details: The patient is a 43 year-old woman known severe persistent asthma in addition to chronic smoking related interstitial lung disease in the form of respiratory bronchiolitis biopsy-proven and 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 01/02/2023 the patient is here for pulmonary follow-up visit. The patient is doing very well. She is cutting down the prednisone down to 9 mg daily. She continues use her Trelegy with very good effect. She is also on Daliresp. Recently she was placed on Ozempic. She has lost about 13 lb. She also continues on the Imuran 150 mg daily. Her breathing significantly better. Chest not required her rescue inhaler and has not required any additional prednisone. Depression [facility] office also significantly better. Unfortunately she is still smoking. She is trying to quit although is very hard. We did review her pulmonary function studies that she had back in the winter of 2022 which demonstrated interval improvement in lung capacity which is reassuring. She was supposed to start pulmonary rehab but she is not able to at this time. I am hopeful that she can start pulmonary rehab soon. I do believe pulmonary rehab will be very affecting beneficial for the patient continues to get her IgG infusions. Will go ahead and check her blood work at this time. She is concerned about her COVID antibodies. She has not been vaccinated for COVID. 07/11/2023 the patient is here for a pulmonary follow-up visit. The patient overall has been doing better from a respiratory status. Unfortunately, she did develop pancreatitis and was admitted to the hospital briefly. Was felt to be drug-induced. The 2 potential culprits include the azathioprine and also the Daliresp. She stopped both. Her symptoms have been improving significantly. The patient has been able to be okay without the medications which is reassuring. She is also cutting down significantly on the smoking which is also helping the fact that she can come off the medicine. The patient also continues to be on 10 mg of prednisone. When she cut smoking further she is going to try cutting down slowly down to 7.5 mg daily she continues her respiratory therapy with good effect. Otherwise patient is without any other complaints. 01/15/2024 the patient is here for a pulmonary follow-up visit. Overall the patient has been doing extremely well. She has been able to be off Imuran without any worsening symptoms. She has also off the Daliresp. Her GI tract is better overall. In addition to that she has been on 10 mg of prednisone only which is reassuring. She did undergo an endoscopy and she was found to have some gastric ulcers or peptic ulcers. Report. Therefore, will go ahead and try to decrease the prednisone some. Specially since she is doing well but we wanted decrease it to quickly. She is going to alternate 10 mg and 7.5 mg daily for a month and then she can just take some 0.5 mg daily. She should continue with a 7.5 mg does unless she feels she can decrease it further she can always call and I can send 1 mg tablets. As far as inhaler she continues use the [employer] did lead. And smoking she is working closely with smoking cessation smoking significantly less. Although she is still smoking some. She continues with the IVIG infusions which have been affecting beneficial. Otherwise patient is without any other complaints. 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 Tobacco dependence Asthma-COPD overlap syndrome Cough Hypogammaglobulinemia ILD (interstitial lung disease) Asthma Surgical History Hx of cholecystectomy Family History Family/Other No family history of colorectal cancer Social History Patient Tobacco Use Status: Current everyday Tobacco user Tobacco use type: Cigarette Cigarette Packs Per Day: 0.5 Cigarettes Per Day: 10.0 Years Smoked: 20 years Review of Systems Const Denies night sweats and Reports weight loss ENT Denies change in voice, Denies lip swelling, Denies mouth pain, Reports nasal congestion, Reports nasal discharge and Denies tongue swelling Card Denies chest pain, Denies dyspnea and Reports dyspnea on exertion Resp Denies chest congestion, Reports cough, Denies dyspnea, Reports dyspnea on exertion and Denies wheezing GI Denies abdominal pain Musc Denies no additional complaints Neuro Denies Neuro-related abnormal movements Psych Denies no additional complaints Leroy/Lymph Denies easy bleeding and Denies lymphadenopathy Aller/Immun Denies lip swelling, Denies tongue swelling and Denies wheezing Physical Exam Vital Signs: Last Vital Signs Pulse 90 01/15/24 13:12 Pulse Ox 97 01/15/24 13:12 Oxygen Delivery Method Room Air 01/15/24 13:12 BMI result Body Mass Index 38.1 Const General: alert Neck Neck: Yes normal visual inspection, Yes full ROM and Yes no lymphadenopathy Chest Chest palpation & inspection: normal inspection of the chest Resp Effort & Inspection: normal respiratory effort Auscultation: no wheezes and diminished lung sounds Cardio Rate: tachycardic Rhythm: regular rhythm Heart sounds: S1 normal heart sound present and S2 normal heart sound present GI Palpation (GI): Soft to palpation and nontender Auscultation: normal bowel sounds Skin General skin exam: rashes and/or lesions noted Extrem General: No clubbing, No cyanosis and Yes edema Quality Reporting (2019) Adult ([facility] [address]/02/68) Smoking risk assessment performed?: Yes Patient Tobacco Use Status: Current everyday Tobacco user Assessment & Plan Assessment & Plan (1) Asthma-COPD overlap syndrome: Code(s): J44.9 - Chronic obstructive pulmonary disease, unspecified Category: Medical (2) ILD (interstitial lung disease): Comment: persistent asthma in addition to chronic smoking related interstitial lung disease She has been steroid dependent Code(s): J84.9 - Interstitial pulmonary disease, unspecified Category: Medical (3) Tobacco dependence: Code(s): F17.200 - Nicotine dependence, unspecified, uncomplicated Category: Medical (4) Cough: Code(s): R05 - Cough Category: Medical Qualifiers: Cough type: chronic Qualified Code(s): R05.3 - Chronic cough (5) Hypogammaglobulinemia: Comment: Chronic diarrhea- MLc- CVID Code(s): D80.1 - Nonfamilial hypogammaglobulinemia Category: Medical Plan continue prednisone 10mg daily, taper slowly to 7.5mg daily Pulmonary rehab continue Ipratropium continue Trelegy 200 Tobacco cessation continue singular continue IgG therapy follow-up 4-6 months Medications: New prednisone 10 mg (2 x 5 mg) PO DAILY 60 tabs 11RF 30 days Coding Level of Care Code Est Pt Level 4 (44313) Diagnoses Asthma-COPD overlap syndrome J44.9 ILD (interstitial lung disease) J84.9 Tobacco dependence F17.200 Chronic cough R05.3 Cough type: chronic Hypogammaglobulinemia D80.1 Time Spent (min) 16
== END 2024-01-15 13:33 | disposition home or self-care (01) ==
PROVIDERS: PCP Family Medicine; Visit Provider Hospitalist
DX: J44.9 Chronic obstructive pulmonary disease, unspecified (principal); J84.9 Interstitial pulmonary disease, unspecified; F17.200 Nicotine dependence, unspecified, uncomplicated; R05.3 Chronic cough; D80.1 Nonfamilial hypogammaglobulinemia
CPT/HCPCS: 99214

== ENCOUNTER → 2024-01-15 13:06 | Outpatient (BNVA) | payer OTHER, SELFPAY | PROVIDERS: PCP Family Medicine; Visit Provider Hospitalist | DX: J44.9 Chronic obstructive pulmonary disease, unspecified (principal); J84.9 Interstitial pulmonary disease, unspecified; R05.3 Chronic cough; D80.1 Nonfamilial hypogammaglobulinemia; F17.210 Nicotine dependence, cigarettes, uncomplicated | CPT/HCPCS: 99212 ==

== ENCOUNTER 2024-04-16 10:53 | Outpatient (REF) | payer OTHER, SELFPAY | END 2024-04-16 10:54 | disposition home or self-care (01) | LOC: HO.LAB 10:53 | PROVIDERS: PCP Pediatrics; Visit Provider Internal Medicine Gastroenterology | DX: K52.9 Noninfective gastroenteritis and colitis, unspecified (principal); U09.9 Post COVID-19 condition, unspecified | CPT/HCPCS: 36415; 86140 ==

== ENCOUNTER 2024-10-12 10:16 | Outpatient (AMB) | payer OTHER, SELFPAY ==
[2024-10-12 10:19] VITALS: BP 110/70; PULSE 150; O2SAT 100; BMI 39.6
--- NOTE | 2024-10-12 10:19 | MHC.OFFVIS ---
Vital Signs 10/12/24 10:19 10/12/24 10:26 Height 5 ft 3 in Weight 223 lb 12.307 oz BMI 39.6 BP 110/70 Blood Pressure Location Rt brachial Position Sitting Pulse 150 H 137 H Pulse Source Pulse Oximeter Pulse Oximeter Pulse Oximetry (%) 100 Oxygen Delivery Method Room Air Intake Visit Reasons: Asthma Allergies iodine [IODINE] Allergy (Severe, Verified 10/12/24 10:24) RASH Penicillins [PENICILLINS] Allergy (Severe, Verified 10/12/24 10:24) THROAT CLOSES furosemide [From Lasix] Adverse Reaction (Intermediate, Verified 10/12/24 10:32) Dizziness SHELLFISH Allergy (Severe, Uncoded 10/12/24 10:24) RASH Medication List - Last Reconciled 10/12/24 by Izabela Tinsley LPN aripiprazole 2 mg PO DAILY bisacodyl (Dulcolax (bisacodyl)) 20 mg (4 x 5 mg) PO ONCE PRN 1 day calcium carbonate 500 mg PO BID colesevelam 1,250 mg (2 x 625 mg) PO BID doxycycline hyclate 100 mg PO DAILY dulaglutide 1.5 mg subcut QWEEK epinephrine IM PRN pqppsxkrqjz-nlfftxbmn-mzzjeybs 200-62.5-25 mcg (Trelegy Ellipta) 1 inh inhalation DAILY 30 days folic acid 1 mg PO DAILY furosemide (Lasix) 20 mg PO DAILY 3 days gabapentin 100 mg PO TID immun glob G(IgG)-pro-IgA 0-50 1 gram/5 mL (20 %) (Hizentra) mL subcut ipratropium bromide 1 spray intranasal TID 30 days ipratropium-albuterol 0.5 mg-3 mg(2.5 mg base)/3 mL 3 mL inhalation QID lorazepam 0.5 mg PO DAILY PRN mirtazapine 15 mg PO BEDTIME montelukast 10 mg PO DAILY pantoprazole 40 mg PO DAILY polyethylene glycol 3350 (Miralax) 238 grams PO ONCE PRN 1 day prazosin 1 mg PO BEDTIME prednisone 3 mg (3 x 1 mg) PO DAILY 90 days prednisone 10 mg (2 x 5 mg) PO DAILY 30 days prednisone 10 mg PO DAILY 30 days trazodone 200 mg PO BEDTIME Ventolin HFA 90 mcg/actuation (albuterol sulfate) 2 puffs inhalation Q4H PRN NS HPI Comments Details: The patient is a 43 year-old woman known severe persistent asthma in addition to chronic smoking related interstitial lung disease in the form of respiratory bronchiolitis biopsy-proven and 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 01/02/2023 the patient is here for pulmonary follow-up visit. The patient is doing very well. She is cutting down the prednisone down to 9 mg daily. She continues use her Trelegy with very good effect. She is also on Daliresp. Recently she was placed on Ozempic. She has lost about 13 lb. She also continues on the Imuran 150 mg daily. Her breathing significantly better. Chest not required her rescue inhaler and has not required any additional prednisone. Depression [facility]nie office also significantly better. Unfortunately she is still smoking. She is trying to quit although is very hard. We did review her pulmonary function studies that she had back in the winter of 2022 which demonstrated interval improvement in lung capacity which is reassuring. She was supposed to start pulmonary rehab but she is not able to at this time. I am hopeful that she can start pulmonary rehab soon. I do believe pulmonary rehab will be very affecting beneficial for the patient continues to get her IgG infusions. Will go ahead and check her blood work at this time. She is concerned about her COVID antibodies. She has not been vaccinated for COVID. 07/11/2023 the patient is here for a pulmonary follow-up visit. The patient overall has been doing better from a respiratory status. Unfortunately, she did develop pancreatitis and was admitted to the hospital briefly. Was felt to be drug-induced. The 2 potential culprits include the azathioprine and also the Daliresp. She stopped both. Her symptoms have been improving significantly. The patient has been able to be okay without the medications which is reassuring. She is also cutting down significantly on the smoking which is also helping the fact that she can come off the medicine. The patient also continues to be on 10 mg of prednisone. When she cut smoking further she is going to try cutting down slowly down to 7.5 mg daily she continues her respiratory therapy with good effect. Otherwise patient is without any other complaints. 01/15/2024 the patient is here for a pulmonary follow-up visit. Overall the patient has been doing extremely well. She has been able to be off Imuran without any worsening symptoms. She has also off the Daliresp. Her GI tract is better overall. In addition to that she has been on 10 mg of prednisone only which is reassuring. She did undergo an endoscopy and she was found to have some gastric ulcers or peptic ulcers. Report. Therefore, will go ahead and try to decrease the prednisone some. Specially since she is doing well but we wanted decrease it to quickly. She is going to alternate 10 mg and 7.5 mg daily for a month and then she can just take some 0.5 mg daily. She should continue with a 7.5 mg does unless she feels she can decrease it further she can always call and I can send 1 mg tablets. As far as inhaler she continues use the [employer] did lead. And smoking she is working closely with smoking cessation smoking significantly less. Although she is still smoking some. She continues with the IVIG infusions which have been affecting beneficial. Otherwise patient is without any other complaints. 10/12/2024 the patient is here for a pulmonary follow-up visit. Overall she is doing very well from a respiratory status. She has been able to wean off completely from the prednisone. In addition to that she is stopping doxycycline. GI symptoms have improved. She continues use her respiratory therapy as prescribed. The patient unfortunately continues to smoke cigarettes. She has been very stressed because of her home situation. But, she needs to quit because she understands that she has significant disease due to the cigarettes. Initially when she came in the patient was noted to be significantly tachycardic up to 150 beats per minute in the when she settled down she was still about 136 beats per minute. Denies any shortness of breath denied any palpitations. Does not really feel it. Therefore, will send her for an EKG and also blood work. Also did review the EKG demonstrating sinus tachycardia but 109 beats per minute which is significantly decreased. [facility] Medical History [id number] syndrome Tobacco dependence Asthma-COPD overlap syndrome Cough Hypogammaglobulinemia ILD (interstitial lung disease) Asthma Surgical History Hx of cholecystectomy Family History Family/Other No family history of colorectal cancer Social History Patient Tobacco Use Status: Current everyday Tobacco user Tobacco use type: Cigarette Cigarette Packs Per Day: 0.5 Cigarettes Per Day: 10.0 Years Smoked: 20 years Review of Systems Const Denies night sweats and Reports weight loss ENT Denies change in voice, Denies lip swelling, Denies mouth pain, Reports nasal congestion, Reports nasal discharge and Denies tongue swelling Card Denies chest pain, Denies dyspnea and Reports dyspnea on exertion Resp Denies chest congestion, Reports cough, Denies dyspnea, Reports dyspnea on exertion and Denies wheezing GI Denies abdominal pain Musc Denies no additional complaints Neuro Denies Neuro-related abnormal movements Psych Denies no additional complaints Leroy/Lymph Denies easy bleeding and Denies lymphadenopathy Aller/Immun Denies lip swelling, Denies tongue swelling and Denies wheezing Physical Exam Vital Signs: Last Vital Signs Pulse 137 H 10/12/24 10:26 BP 110/70 10/12/24 10:19 Pulse Ox 100 10/12/24 10:19 Oxygen Delivery Method Room Air 10/12/24 10:19 BMI result Body Mass Index 39.6 Const General: alert Neck Neck: Yes normal visual inspection, Yes full ROM and Yes no lymphadenopathy Chest Chest palpation & inspection: normal inspection of the chest Resp Effort & Inspection: normal respiratory effort Auscultation: no wheezes and diminished lung sounds Cardio Rate: tachycardic Rhythm: regular rhythm Heart sounds: S1 normal heart sound present and S2 normal heart sound present GI Palpation (GI): Soft to palpation and nontender Auscultation: normal bowel sounds Skin General skin exam: rashes and/or lesions noted Extrem General: No clubbing, No cyanosis and Yes edema Quality Reporting (2019) Adult ([facility] 138/10/02/68) Smoking risk assessment performed?: Yes Patient Tobacco Use Status: Current everyday Tobacco user Assessment & Plan Assessment & Plan (1) Asthma-COPD overlap syndrome: Code(s): J44.9 - Chronic obstructive pulmonary disease, unspecified Category: Medical (2) ILD (interstitial lung disease): Comment: persistent asthma in addition to chronic smoking related interstitial lung disease She has been steroid dependent Code(s): J84.9 - Interstitial pulmonary disease, unspecified Category: Medical (3) Tobacco dependence: Code(s): F17.200 - Nicotine dependence, unspecified, uncomplicated Category: Medical (4) Cough: Code(s): R05 - Cough Category: Medical Qualifiers: Cough type: chronic Qualified Code(s): R05.3 - Chronic cough (5) Hypogammaglobulinemia: Comment: Chronic diarrhea- MLc- CVID Code(s): D80.1 - Nonfamilial hypogammaglobulinemia Category: Medical (6) Tachyarrhythmia: Code(s): R00.0 - Tachycardia, unspecified Category: Medical Plan stopped Prednisone continue Ipratropium continue Trelegy 200 Tobacco cessation continue singular continue IgG therapy EKG Bloodwork follow-up 6 months Orders: Orders Complete Blood Count Auto Diff Today D80.1 - Nonfamilial hypogammaglobulinemia, F17.200 - Nicotine dependence, unspecified, uncomplicated, R00.0 - Tachycardia, unspecified D Dimer High Sensitivity Today D80.1 - Nonfamilial hypogammaglobulinemia, F17.200 - Nicotine dependence, unspecified, uncomplicated, R00.0 - Tachycardia, unspecified TSH reflex Free T4 Today D80.1 - Nonfamilial hypogammaglobulinemia, F17.200 - Nicotine dependence, unspecified, uncomplicated, R00.0 - Tachycardia, unspecified Basic Metabolic Panel Today D80.1 - Nonfamilial hypogammaglobulinemia, F17.200 - Nicotine dependence, unspecified, uncomplicated, R00.0 - Tachycardia, unspecified Immunoglobulins,IgG IgA IgM Today D80.1 - Nonfamilial hypogammaglobulinemia, F17.200 - Nicotine dependence, unspecified, uncomplicated, R00.0 - Tachycardia, unspecified Immunoglobulin E Today D80.1 - Nonfamilial hypogammaglobulinemia, F17.200 - Nicotine dependence, unspecified, uncomplicated, R00.0 - Tachycardia, unspecified Erythrocyte Sedimentation Rate Today D80.1 - Nonfamilial hypogammaglobulinemia, F17.200 - Nicotine dependence, unspecified, uncomplicated, R00.0 - Tachycardia, unspecified ECG 12 lead EKG Today J44.9 - Chronic obstructive pulmonary disease, unspecified, R00.0 - Tachycardia, unspecified Coding Level of Care Code Est Pt Level 4 (78293) Complex EM visit Add On G2211 Diagnoses Asthma-COPD overlap syndrome J44.9 ILD (interstitial lung disease) J84.9 Tobacco dependence F17.200 Chronic cough R05.3 Cough type: chronic Hypogammaglobulinemia D80.1 Tachyarrhythmia R00.0 Time Spent (min) 17
[2024-10-12 10:26] VITALS: PULSE 137
--- OUTSIDE RECORDS SUMMARY | 2024-10-12 12:24 | XMS_ITS | Clinical Summary ---
Author Organization [address] Address [address] [place] [address] Phone Care Team Providers Care Bureau Chief Name Role Phone Ta Peng MD Primary Care Pr ovider Allergies Active Allergy Reactions Criticality Noted Date Comments Penicillins 02/05/2013 Medications eszopiclone (LUNESTA) 1 mg tablet Take 1 Tablet by mouth at bedtime as needed. Active semaglutide (Ozempic) 1 mg/dose (4 mg/3 mL) injection pen Inject 1 mg into the skin every 7 days. 11/03/2023 Active diphenoxylate-a tropine (LOMOTIL) 2.5-0.025 mg per tablet Take 1 Tablet by mouth 4 times daily as needed for Diarrhea. 04/28/2023 Active ARIPiprazole (ABILIFY) 2 mg tablet 12/06/2022 Active folic acid (FOLVITE) 1 mg tablet 12/03/2022 Active doxycycline (VIBRAMYCIN) 100 mg capsule 12/03/2022 Acti ve gabapentin (NEURONTIN) 100 mg capsule TAKE 2 CAPSULE BY MOUTH AT BEDTIME AND ONE CAPSULE DAILY IF NEEDED ANXIETY 11/11/2022 Active fluticasone-ume clidinium-vilan terol (Trelegy Ellipta) 200-62.5-25 mcg inhaler INHALE 1 PUFF DAILY 11/09/2022 Active albuterol HFA (Ventolin HFA) 90 mcg/actuation inhaler INHALE 2 PUFFS INTO THE LUNGS EVERY 4 HOURS NEEDED FOR WHEEZING 11/18/2022 Active LORazepam (ATIVAN) 0.5 mg tablet TAKE 1 TABLET BY MOUTH ONCE A DAY NEEDED ANXIETY 11/26/2022 Active mirtazapine (REMERON) 15 mg tablet TAKE 1 TABLET BY MOUTH EVERYDAY AT BEDTIME 11/25/2022 Active prazosin (MINIPRESS) 1 mg capsule TAKE 1 CAPSULE BY MOUTH EVERYDAY AT BEDTIME 09/29/2022 Active immun glob G,IgG,-pro-IgA 0-50 (Hizentra) 4 gram/20 mL (20 %) solution 10/09/2022 Act devorah immun glob G,IgG,-pro-IgA 0-50 (Hizentra) 1 gram/5 mL (20 %) solution 10/09/2022 Active traZODone (DESYREL) 100 mg tablet Take 100 mg by mouth at bedtime. 2 tablets Active montelukast (SINGULAIR) 10 mg tablet Take 1 Tab by mouth at bedtime for 360 days. 12/21/2018 Active EPINEPHrine (EpiPen 2-Agus) 0.3 mg/0.3 mL injection INJECT 0.3 MG DIRECTED NEEDED 12/01/2018 Active ipratropium-alb uteroL (DUONEB) 0.5-2.5 mg/3 mL nebulizer solution Inhale 3 mL into the lungs 4 times daily. 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 Castano Insomnia 09/30/2017 Anxiety 09/13/2016 Depression 07/12/2016 Leukocytosis 02/08/2016 Atypical squamous cell durant es of undetermined significance (ASCUS) on cervical cytology with positive high risk human papilloma virus (HPV) 01/31/2016 Overview (07/13/2024): Colposcopy - normal, ECC neg. Pap same 2016, repeat colposcopy normal Immunizations Name Administration Dates Next Due Pneumococcal polysaccharide 23 valent (Pneumovax 23) 2yo and older 04/22/2016 Tdap Tetanus diptheria acell ular pertussis (Boostrix; Adacel) 7yo and older 04/10/2015 Surgical History Surgery Date Site/Laterality Comments SECTION 08/05/2009 PROCEDURE: HISTORICAL DELIVERY CHOLECYSTECTOMY 2014 PROCEDURE: LAPAROSCOPIC CHOLECYSTECT WISDOM TOOTH EXTRACTION PROCEDURE: HISTORICAL WISDOM TEETH EXTRACTION; COMMENT: followed by full implants in 2016 OTHER SURGICAL HISTORY 10/06/2018 Left PROCEDURE: PARTIAL LUNG REMOVAL W/WEDGE RESECT; COMMENT: Wedge resection CHOLECYSTECTOMY PROCEDURE: [place] LAPAROSCOPY SURG CHOLECYSTECTOMY Medical History Medical History Date Comments Anxiety DX:Anxiety Insomnia 09/30/2017 DX:Insomnia Asthma 01/09/2015 DX:Asthma Atypical squamous cell durant es of undetermined significance (ASCUS) on cervical cytology with positive high risk human papilloma virus (HPV) 01/31/2016 DX:Atypical squamous cell changes of undetermined significance (ASCUS) on cervical cytology with positive high risk human papilloma virus (HPV); COMMENT: Colposcopy - normal, ECC neg. Pap same 2016, repeat colposcopy normal Depression 07/12/2016 DX:Depression Leukocytosis 02/08/2016 DX:Leukocytosis IPH (idiopathic pulmonary he mosiderosis) (CMS/HCC) DX:IPH (idiopathic pulmonary hemosiderosis) (HCC) Hypogammaglobulinemia (CMS/HCC) DX:Hypogammaglobulinemia (HCC) Diarrhea DX:Diarrhea Nausea and vomiting DX:Nausea an d vomiting Epigastric pain DX:Epigastric pa in Family History Medical History Relation Name Comments COPD Aunt maternal on oxygen Other: PAD Father Lung cancer Maternal Grandfather +smoker COPD Mother anxiety Alcohol abuse Paternal Grandfather Dementia Paternal Grandmother Heart attack Uncle maternal multiple MIs Breast cancer Neg Hx Colon cancer Neg Hx Ovarian cancer Neg Hx Relation Name Status Comments Aunt maternal Alive Father Alive Maternal Grandfather Maternal Grandmother Mother Alive Paternal Grandfather Paternal Grandmother Alive Sister x 3 Alive Uncle maternal Social History Tobacco Use Types Packs/Day Years Used Date Smoking Tobacco: Every Day Smokeless Tobacco: Never Alcohol Use Standard Drinks/Week Comments Not Currently 0 (1 standard drink = 0.6 oz pur e alcohol) Comments Unknown Sex and Gender Information Value Date Recorded Sex Assigned at Not on file Legal Sex Female 9:27 AM EST Gender Identity Not on file Sexual Orientation Not on file Obstetrics History Last Filed Vital Signs Vital Sign Reading Time Taken Comments Blood Pressure 114/62 04/28/2024 3:27 PM EDT Pulse 118 04/28/2024 3:27 PM EDT Temperature - - Respiratory Rate - - Oxygen Saturation - - Inhaled Oxygen Concentration - - Weight 107 kg (235 lb 8 oz) 04/28/2024 3:27 PM E DT Height 160 cm (5' 3 ) 04/28/2024 3:27 PM EDT Body Mass Index 41.72 04/28/2024 3:27 PM EDT Plan of Treatment Upcoming Encounters Date Type Department Care Team (Late st Contact Info) Description 12/30/2024 2:20 PM EDT Appointment Radiology Department [address] [phone] Health Maintenance Due Date Last Done Comments Hepatitis B Vaccines (1 of 3 - 19+ 3-dose series) 2001 Pneumococcal Vaccine: Pediatrics (0 to 5 Years) and At-Risk Patients (6 to 64 Years) (2 of 2 - PCV) 04/22/2017 04/22/2016 Depression Screening 07/08/2022 HIV Screening 07/08/2022 Social Influencers of Health Screening 07/08/2022 COVID-19 Vaccine (1 - 2023-2 5 season) 2024 Influenza Vaccine (#1) 2024 DTaP,Tdap,and Td Vaccines (2 - Td or Tdap) 04/10/2025 04/10/2015 Breast Cancer Screening 12/22/2025 12/23/19 24, 12/23/2023, 12/17/2022 Cholesterol Screening (Lipid Panel) 12/14/2027 12/13/2022 Cervical Cancer Screening: HPV 04/30/2028 04/30/2023 Hepatitis C Screening Completed 05/01/2018 HIB Vaccines Aged Out No longer eligi ble based on patient's age to complete this topic HPV Vaccines Aged Out No longer eligi ble based on patient's age to complete this topic Hepatitis A Vaccines Aged Out No long er eligible based on patient's age to complete this topic IPV Vaccines Aged Out No longer eligi ble based on patient's age to complete this topic MMR Vaccines Aged Out No longer eligi ble based on patient's age to complete this topic Meningococcal ACWY Vaccine Aged Out N o longer eligible based on patient's age to complete this topic Meningococcal B Vacine Aged Out No lo nger eligible based on patient's age to complete this topic RSV Immunization Patients Under 20 months Aged Out No longer eligible b ased on patient's age to complete this topic Varicella Vaccines Aged Out No longer eligible based on patient's age to complete this topic Procedures Procedure Name Priority Date/Time Associated Diagnosis Comments SCREENING MAMMOGRAPHY BI 2-VIEW BREAST INC CAD Routine 12/23/2023 3:10 PM EDT Encounter for screening mammogram for malignant neoplasm of breast HPV Routine 04/30/2023 LIPID PANEL Routine 12/13/2022 HEPATITIS C SCREENING Routine 05/01/2018 from Last 3 Months or Most Recently Relevant to Health Maintenance Results * SCREENING MAMMOGRAPHY BI 2-VIEW BREAST INC CAD (12/23/2023 3:10 PM EDT) Anatomical Region Laterality Modality Radiographic Trixie ging 12/17/2022 2:49 PM EDT Narrative 12/24/2023 10:31 AM EDT This is a summary report. The complete report is available in the patient's medical record. If you cannot access the medical record, please contact the sending organization for a detailed fax or copy. BILATERAL 3D DIGITAL SCREENING MAMMOGRAM History: Routine screening. ??No current breast complaints. ?? Comparison: Mammogram from 12/17/2022 Technique: Bilateral full-field digital 3D mammography was performed using standard CC and MLO projections CAD was used to evaluate this mammogram. Findings: Density: ??There are scattered areas of fibroglandular density-B RIGHT: No suspicious masses, groups of microcalcification or areas of architectural distortion identified. Stable typically benign parenchymal asymmetries LEFT: No suspicious masses, groups of microcalcifications or areas of architectural distortion identified. Stable typically benign parenchymal asymmetries IMPRESSION: : 1. ??No mammographic evidence of malignancy. BI-RADS Category 2 benign findings Recommendation: Routine annual screening mammography is recommended Procedure Note Cale Celeste MD - 03/29/2024 This is a summary report. The complete report is available in thepatient's medical record. If you cannot access the medical record, pleasecontact the sending organization for a detailed fax or copy. BILATERAL 3D DIGITAL SCREENING MAMMOGRAM History: Routine screening. No current breast complaints. Comparison: Mammogram from 12/17/2022 Technique: Bilateral full-field digital 3D mammography was performed usingstandard CC and MLO projections CAD was used to evaluate this mammogram. Findings: Density: There are scattered areas of fibroglandular density-B RIGHT: No suspicious masses, groups of microcalcification or areas ofarchitectural distortion identified. Stable typically benign parenchymalasymmetries LEFT: No suspicious masses, groups of microcalcifications or areas ofarchitectural distortion identified. Stable typically benign parenchymalasymmetries IMPRESSION: : 1. No mammographic evidence of malignancy. BI-RADS Category 2 benign findings Recommendation: Routine annual screening mammography is recommended Cadence MALIN IMG XR PROCEDURES Final Resul t * Cervical Cancer Screening: HPV (04/30/2023) Pathologist [facility] Cervical Cancer Screening: HPV abstracted, negative Historical Provider HEALTH MAINTENANCE Final Result * Lipid panel (12/13/2022) [facility] Triglycerides 135 0 - 150 mg/dL Cholesterol 151 0 - 200 mg/dL HDL 50 mg/dL Blood Venous blood specimen / Unknown Historical Provider LAB BLOOD ORDERABLES Rossy l Result * Hepatitis C Screening (05/01/2018) Pathologist [facility] Hepatitis C Screening abstracted us Historical Provider HEALTH MAINTENANCE Final Result from Last 3 Months or Most Recently Relevant to Health Maintenance Care Teams Bureau Chief Relationship Specialty Start Date End Date Ta Peng MD PCP - General 12/12/22
== END 2024-10-12 11:30 ==
PROVIDERS: PCP Pediatrics; Visit Provider Hospitalist
DX: J44.9 Chronic obstructive pulmonary disease, unspecified (principal); J84.9 Interstitial pulmonary disease, unspecified; F17.200 Nicotine dependence, unspecified, uncomplicated; R05.3 Chronic cough; D80.1 Nonfamilial hypogammaglobulinemia; R00.0 Tachycardia, unspecified
CPT/HCPCS: 99214; G2211

== ENCOUNTER → 2024-10-12 10:16 | Outpatient (REF) | payer OTHER, SELFPAY ==
--- NOTE | 2024-10-12 10:58 | ECG_ITS ---
Test Reason : COPD Blood Pressure : */* mmHG Vent. Rate : 105 BPM Atrial Rate : 105 BPM P-R Int : 138 ms QRS Dur : 88 ms QT Int : 350 ms P-R-T Axes : 57 1 31 degrees QTcB Int : 462 ms Sinus tachycardia Otherwise normal ECG No previous ECGs available Referred By: Rafael Busch Electronically Signed By: BERNICE HASTINGS MD
[2024-10-12 11:39] LABS: MANUAL DIFF FLAG NO
[2024-10-12 11:51] LABS: Basophils Absolute Auto 0.1 X10*3/uL (0.0-0.2); Basophils Percent Auto 1.2 % (0-2); Eosinophils Absolute Auto 0.2 X10*3/uL (0.0-0.4); Eosinophils Percent Auto 2.2 % (0-4); Hematocrit 49.1 % (37.0-47.0); Hemoglobin 16.5 g/dl (12.0-16.0); Imm Gran Abs Auto 0.04 X10*3/uL (0.00-0.03); Imm Gran Pct Auto 0.4 % (0.0-0.4); Lymphocytes Absolute Auto 2.5 X10*3/uL (1.2-4.9); Lymphocytes Percent Auto 23.7 % (20-40); Mean Corpuscular HGB Conc 33.6 g/dl (31.0-35.0); Mean Corpuscular Hemoglobin 28.2 pg (27.0-33.0); Mean Corpuscular Volume 83.8 fL (80.0-98.0); Mean Platelet Volume 10.4 fL (9.4-12.3); Monocytes Absolute Auto 0.7 X10*3/uL (0.1-1.2); Monocytes Percent Auto 6.5 % (2-11); Platelet Count 267 X10*3/uL (160-400); Red Blood Count 5.86 X10*6/uL (4.20-5.50); Red Cell Distribution Width 15.9 % (11.0-16.0); White Blood Count 10.6 X10*3/uL (4.8-10.8)
[2024-10-12 12:26] LABS: Anion Gap 12 (12-20); Blood Urea Nitrogen 9 mg/dL (9-16); Calcium 9.8 mg/dL (8.4-10.2); Carbon Dioxide 25 mmol/L (22-29); Chloride 107 mmol/L (96-108); Estimated Glomerular Filt Rate > 60; Glucose Random 91 mg/dL (60-115); Potassium 4.5 mmol/L (3.3-5.1); Sodium 139 mmol/L (135-145)
[2024-10-12 12:39] LABS: Erythrocyte Sedimentation Rate 7 MM/HR (0-20)
[2024-10-12 13:04] LABS: D Dimer High Sensitivity 251 NG/ML
--- OUTSIDE RECORDS SUMMARY | 2024-10-12 13:21 | XMS_ITS | Encounter Summary ---
Author Organization [facility] Address [address] [place] [address] Care Team Providers Care Nuclear Medicine Chief Technologist Name Role Phone Chad Das MD Primary Care Provider [phone] Ta Peng MD Primary Care Provider + Encounter Details Date Type Department Care Team Description 01/12/2019 Door Hanger Report Medical Records [address] [place] [id number] Jermain Castano MD Social History Tobacco Use Types Packs/Day Years Used Date Smoking Tobacco: Light Smoker Cigarettes 1 5 Started: 010; Last attempted to quit: 10/10/2015 Smokeless Tobacco: Never Alcohol Use Standard Drinks/Week Comments Yes 0 (1 standard drink = 0.6 oz pur e alcohol) occ Sex Assigned at Date Recorded Female 07/27/2023 7:[address] Job Start Date Occupation Industry Not on file Not on file Not on file documented as of this encounter Plan of Treatment Not on file documented as of this encounter Visit Diagnoses Not on filedocumented in this encounter Care Teams Nuclear Medicine Chief Technologist Relationship Specialty Start Date End Date Chad Das MD [address] [place] [phone] PCP - General Internal Medicine 07/29/14 12/11/22 Ta Peng MD [address] [place] [phone] PCP - General Internal Medicine 12/12/22 documented as of this encounter
--- OUTSIDE RECORDS SUMMARY | 2024-10-12 13:21 | XMS_ITS | Encounter Summary ---
Author Organization [facility] Address [address] [place] [address] Care Team Providers Care Security Solutions Engineer Name Role Phone Chad Das MD Primary Care Provider [phone] Ta Peng MD Primary Care Provider + Reason for Visit * Reason Comments E-prescribe Rx Request Encounter Details Date Type Department Care Team Description 01/29/2019 Refill Pulmonology - [address] [place] [phone] Rafael Busch MD E-prescribe Rx Request Social History Tobacco Use Types Packs/Day Years [...] on file documented as of this encounter Miscellaneous Notes * Telephone Encounter - Ade Tirado - 01/29/2019 2:51 PM EDT Patient would like script to be: E-PRESCRIBED/FAXED TO PHARMACY WHEN WAS THE PATIENT'S LAST APPOINTMENT WITH THE PRESCRIBING PROVIDER? 12/30/18 Does patient have an upcoming appointment? Yes 03/03/19 (THE MEDICATION REQUESTED IS ON THE MED LIST ABOVE) All of the medications requested were on the CURRENT MEDS list Did you check the Pharmacy information above?: YES Patient wants: 90 -day supply Is this a mail order prescription request ? NO Patients current insurance carrier is: Payor: [employer] FFS / Plan: [employer] / Product Type: MEDICAID RISK documented in this encounter Plan of Treatment Not on file documented as of this encounter Visit Diagnoses Not on filedocumented in this encounter Care Teams Security Solutions Engineer Relationship Specialty Start Date End Date Chad Das MD [address] [place] [address] PCP - General Internal Medicine 07/29/14 12/11/22 Ta Peng MD [address] [place] [phone] PCP - General Internal Medicine 12/12/22 documented as of this encounter
--- OUTSIDE RECORDS SUMMARY | 2024-10-12 13:22 | XMS_ITS | Encounter Summary ---
Author Organization [facility] Address [address] [place] [address] Care Team Providers Care Vacuum Filter Operator Name Role Phone Chad Das MD Primary Care Provider [phone] Ta Peng MD Primary Care Provider + Encounter Details Date Type Department Care Team Description 10/27/2019 Tent Worker Report Medical Records [address] [place] [address] Rafael Busch MD Social History Tobacco Use Types Packs/Day Years Used Date Smoking Tobacco: Every Day Cigarettes 1 5 Started: 08/11/2009; Last attempted to quit: 10/10/2015 Smokeless Tobacco: [...] on filedocumented in this encounter Care Teams Vacuum Filter Operator Relationship Specialty Start Date End Date Chad Das MD [address] [place] [phone] PCP - General Internal Medicine 07/29/14 12/11/22 Ta Peng MD [address] [place] [phone] PCP - General Internal Medicine 12/12/22 documented as of this encounter
--- OUTSIDE RECORDS SUMMARY | 2024-10-12 13:22 | XMS_ITS | Encounter Summary ---
Author Organization [facility] Address [address] [place] [address] Care Team Providers Care Photo Graphics Librarian Name Role Phone Chad Das MD Primary Care Provider [phone] Ta Peng MD Primary Care Provider + Encounter Details Date Type Department Care Team Description 08/29/2015 Funeral Prearrangement Counselor Report Medical Records [address] [place] [phone] Social History Tobacco Use Types Packs/Day Years Used Date Smoking Tobacco: Every Day Cigarettes 1 5 Started: 08/11/2009 Smokeless Tobacco: Never Alcohol Use Standard Drinks/Week Comments No 0 (1 standard drink = 0.6 oz pur e alcohol) Sex Assigned at Date Recorded Female 07/27/2023 7:[address] Job Start Date Occupation Industry Not on file Not on file Not on file documented as of this encounter Plan of Treatment Not on file documented as of this encounter Visit Diagnoses Not on filedocumented in this encounter Care Teams Photo Graphics Librarian Relationship Specialty Start Date End Date Chad Das MD [address] [place] [address] PCP - General Internal Medicine 07/29/14 12/11/22 Ta Peng MD [address] [place] [phone] PCP - General Internal Medicine 12/12/22 documented as of this encounter
--- OUTSIDE RECORDS SUMMARY | 2024-10-12 13:22 | XMS_ITS | Encounter Summary ---
Author Organization [facility] Address [address] [place] [address] Care Team Providers Care Filtration Plant Operator Name Role Phone Chad Das MD Primary Care Provider [phone] Ta Peng MD Primary Care Provider + Encounter Details Date Type Department Care Team Description 04/01/2015 Refill Adult Medicine [address] [address] Jermain Georges PA-C Social History Tobacco Use Types Packs/Day Years Used Date Smoking Tobacco: Every Day Cigarettes 0.5 Smokeless Tobacco: Never Comments:pt has not smoked s roger 01/24/15 Alcohol Use Standard Drinks/Week Comments No 0 [...] on filedocumented in this encounter Care Teams Filtration Plant Operator Relationship Specialty Start Date End Date Chad Das MD [address] [place] [phone] PCP - General Internal Medicine 07/29/14 12/11/22 Ta Peng MD [address] [place] [phone] PCP - General Internal Medicine 12/12/22 documented as of this encounter
--- OUTSIDE RECORDS SUMMARY | 2024-10-12 13:22 | XMS_ITS | Encounter Summary ---
Author Organization [facility] Address [address] [place] [address] Care Team Providers Care Plasterer Maintenance Name Role Phone Chad Das MD Primary Care Provider [phone] Ta Peng MD Primary Care Provider + Encounter Details Date Type Department Care Team Description 09/27/2020 Washer And Capper Machine Operator Report Medical Records [address] [place] [phone] Rafael Busch MD Social History Tobacco Use [...] on filedocumented in this encounter Care Teams Plasterer Maintenance Relationship Specialty Start Date End Date Chad Das MD [address] [place] [address] PCP - General Internal Medicine 07/29/14 12/11/22 Ta Peng MD [address] [place] [phone] PCP - General Internal Medicine 12/12/22 documented as of this encounter
--- OUTSIDE RECORDS SUMMARY | 2024-10-12 13:22 | XMS_ITS | Encounter Summary ---
Author Organization [facility] Address [address] [place] [address] Care Team Providers Care Aeronautical Engineering Professor Name Role Phone Chad Das MD Primary Care Provider Ta Peng MD Primary Care Provider + Encounter Details Date Type Department Care Team Description 02/17/2020 Electrical Wiring Lineman Report Medical Records [address] [place] [address] Jermain Castano MD Social History Tobacco Use [...] on filedocumented in this encounter Care Teams Aeronautical Engineering Professor Relationship Specialty Start Date End Date Chad Das MD [address] [place] [address] PCP - General Internal Medicine 07/29/14 12/11/22 Ta Peng MD [address] [place] [address] PCP - General Internal Medicine 12/12/22 documented as of this encounter
--- OUTSIDE RECORDS SUMMARY | 2024-10-12 13:22 | XMS_ITS | Encounter Summary ---
Author Organization [facility] Address [address] [place] [address] Care Team Providers Care Freelance Director Name Role Phone Ta Peng MD Primary Care Provider + Reason for Visit * Reason Onset Date Comments Testing 04/29/2024 Encounter Details Date Type Department Care Team Description 04/29/2024 Telephone Cardio [facility] Diag Testing [address] [facility] [address] [place] [address] Lyla Bernstein PA-C [address] [place] [phone] Testing Social History Tobacco Use Types Packs/Day Years Used Date Smoking Tobacco: Every Day Cigarettes Smokeless Tobacco: Never Comments:Started age 29; max 2 PPDs; 12/12/22, 3/4 PPD Alcohol Use Standard Drinks/Week Comments Not Currently 0 (1 standard drink = 0.6 oz pur e alcohol) Education Answer Date Recorded What is the highest level of school you have completed or the highest degree you have received? Associate degree: academic program 12/12/2022 Sex Assigned at Date Recorded Female 07/27/2023 7:[address] Job Start Date Occupation Industry Not on file Not on file Not on file documented as of this encounter Miscellaneous Notes * Telephone Encounter - Lyla Bernstein PA-C - 04/30/2024 8:31 AM EDT New order placed to [facility]. Thank you * Telephone Encounter - Macy Aida - 04/29/2024 11:08 AM EDT Patient called, looking to schedule a vein ultrasound/bilateral, order posted on 04/28/24, STAT. I advised order needed to be reviewed and that we'd reach out to schedule soon. Order was noted: To be scheduled at [facility] . I mentioned this to patient. She said they don't do vascular testing there anymore, asked to be booked at [facility]. FYI. documented in this encounter Plan of Treatment Not on file documented as of this encounter Visit Diagnoses Diagnosis Bilateral lower extremity edema- Primary Edema documented in this encounter Care Teams Freelance Director Relationship Specialty Start Date End Date Ta Peng MD [address] [place] [phone] PCP - General Internal Medicine 12/12/22 documented as of this encounter
--- OUTSIDE RECORDS SUMMARY | 2024-10-12 13:22 | XMS_ITS | Clinical Summary ---
Author Organization [facility] Address [address] [place] [address] Care Team Providers Care Sr. Strategic Sourcing Manager Name Role Phone Ta Peng MD Primary Care Provider + Allergies Active Allergy Reactions Severity Noted Date Comments Penicillins 02/05/2013 Medications Medication Sig Dispensed Refills Start Date End Date Status Ipratropium-Albuterol (DUONEB) 0.5-2.5 (3) MG/3ML SolutionIndications:S evere persistent asthma without complication Inhale 3 mL into the lungs 4 times daily. 120 Vial 3 10/07/2017 Active EPINEPHrine 0.3 MG/0.3ML Solution Auto-injector INJECT 0.3 MG DIRECTED NEEDED 2 Each 1 12/01/2018 Active montelukast (SINGULAIR) 10 MG tabletIndications:Sev ere persistent asthma without complication,Hypogamm aglobulinemia (HCC),Asthma with acute exacerbation, unspecified asthma severity, unspecified whether persistent,Tobacco abuse,Cigarette smoker,Abnormal chest CT Take 1 Tab by mouth at bedtime for 360 days. 30 Tab 11 12/21/2018 Active trazodone (DESYREL) 100 MG tablet Take 100 mg by mouth at bedtime. 2 tablets 0 Active aripiprazole (ABILIFY) 2 MG tablet 0 12/06/2022 Act devorah folic acid (FOLVITE) 1 MG tablet 0 12/03/2022 Active doxycycline (VIBRAMYCIN) 100 MG capsule 0 12/03/2022 Active gabapentin (NEURONTIN) 100 MG capsule TAKE 2 CAPSULE BY MOUTH AT BEDTIME AND ONE CAPSULE DAILY IF NEEDED ANXIETY 0 11/11/2022 Active Trelegy Ellipta 200-62.5-25 MCG/ACT AEROSOL POWDER,BREATH ACTIVATED INHALE 1 PUFF DAILY 0 11/09/2022 Active Ventolin HFA 108 (90 Base) MCG/ACT Aero Soln INHALE 2 PUFFS INTO THE LUNGS EVERY 4 HOURS NEEDED FOR WHEEZING 0 11/18/2022 Active lorazepam (ATIVAN) 0.5 MG tablet TAKE 1 TABLET BY MOUTH ONCE A DAY NEEDED ANXIETY 0 11/26/2022 Active mirtazapine (REMERON) 15 MG tablet TAKE 1 TABLET BY MOUTH EVERYDAY AT BEDTIME 0 11/25/2022 Active prazosin (MINIPRESS) 1 MG capsule TAKE 1 CAPSULE BY MOUTH EVERYDAY AT BEDTIME 0 09/29/2022 Active Hizentra 4 GM/20ML Solution 0 10/09/2022 Active Hizentra 1 GM/5ML Solution 0 10/09/2022 Active diphenoxylate-atropin e (Lomotil) 2.5-0.025 MG per tablet Take 1 Tablet by mouth 4 times daily as needed for Diarrhea. 60 Tablet 11 04/28/2023 Active Semaglutide, 1 MG/DOSE, (Ozempic, 1 MG/DOSE,) 4 MG/3ML Solution Pen-injectorIndicatio ns:Morbid obesity with BMI of 40.0-44.9, adult (HCC) Inject 1 mg into the skin every 7 days. 1 mL 5 11/03/2023 Active eszopiclone (LUNESTA) 1 MG Tab Take 1 Tablet by mouth at bedtime as needed. 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 Pap same 2016, repeat colposcopy normal Resolved Problems Problem Noted Date Resolved Date Tobacco abuse 01/16/2018 05/29/2018 Asthma 01/09/2015 12/12/2022 Immunizations Name Administration Dates Next Due Pneumoccoccal(Adult) Polysaccharide PPSV23 04/22 Tdap 04/10/2015 Family History Medical History Relation Name Comments COPD Aunt maternal on oxygen PAD Father Cancer of the Lung Maternal Grandfather + smoker COPD Mother anxiety Alcohol Abuse Paternal Grandfather Dementia Paternal Grandmother [place] Uncle maternal multiple MIs CA Breast Negative Hx CA Colon Negative Hx CA Ovarian Negative Hx Relation Name Status Comments Aunt maternal [...] file Not on file Not on file Last Filed Vital Signs Vital Sign Reading Time Taken Comments Blood Pressure 114/62 04/28/2024 3:27 PM EDT Pulse 118 04/28/2024 3:27 PM EDT Temperature 36.6 ??C (97.8 ??F) 04/28/2024 3:27 PM ED T Respiratory Rate 16 04/30/2023 1:34 PM EDT Oxygen Saturation 99% 04/28/2024 3:27 PM EDT Inhaled Oxygen Concentration - - Weight 106.8 kg (235 lb 8 oz) 04/28/2024 3:27 PM EDT Height 160 cm (5' 3 ) 04/28/2024 3:27 PM EDT Body Mass Index 41.72 04/28/2024 3:27 PM EDT Plan of Treatment Health Maintenance Due Date Last Done Comments Covid-19 Vaccine (#1) 05/02/1983 DEPRESSION SCREEN 12/13/2023 12/12/2022 INFLUENZA (#1) 2024 05/01/2018 (Allergic) TOBACCO CHECK/ADVISE 04/19/2024 04/19/2022, 06/17/2020, 09/30/2019, Additional history exists CERVICAL CANCER SCREENING 04/30/20242022, 12/14/2018, 05/01/2018, Additional history exists BMI CHECK/ADVISE 08/11/2024 07/28/2023, , 04/17/2023, Additional history exists DEPRESSION SCREENING/FOLLOWUP 08/11/2024, 11/14/2017, 05/15/2017, Additional history exists SOCIAL NEEDS SCREENING 08/11/2024 BASELINE HEALTH EXAM 40-64 12/13/202412/13, 12/12/2022, 09/13/2016, Additional history exists MAMMOGRAM 12/22/2024 12/23/2023, 12/17/2022 DTAP/TDAP/TD (2 - Td or Tdap) 04/10/2025 04/10/2015 CHOLESTEROL SCREENING 12/14/2027 12/13/2022 , 09/13/2016, 09/23/2014 PNEUMOCOCCAL VACCINE FOR HIG H RISK PATIENTS (#2) 10/31/2047 04/22/2016 Care Teams Sr. Strategic Sourcing Manager Relationship Specialty Start Date End Date Ta Peng MD [address] [place] [address] [phone] PCP - General Internal Medicine 12/12/22
--- OUTSIDE RECORDS SUMMARY | 2024-10-12 13:22 | XMS_ITS | Encounter Summary ---
Author Organization [facility] Address [address] [place] [address] Care Team Providers Care Jewel Bearing Turner Name Role Phone Chad Das MD Primary Care Provider [phone] Ta Peng MD Primary Care Provider + Encounter Details Date Type Department Care Team Description 02/06/2018 Orders Only Pulmonology - [address] [place] [address] Rafael Busch MD Severe persistent asthma without complication; Hypogammaglobulinemia (HCC); Severe persistent asthma, unspecified whether complicated Social History Tobacco Use Types Packs/Day Years [...] on file documented as of this encounter Procedures Procedure Name Priority Date/Time Associated Diagnosis Comments CHG RADIOLOGIC EXAM CHEST 2 VIEWS Routine 01/20/2018 Severe persistent asthma without complication Hypogammaglobulinemia (HCC) Severe persistent asthma, unspecified whether complicated documented in this encounter Results * RADIOLOGIC EXAM CHEST 2 VIEWS (01/20/2018) Rafael Busch MD RADIOLOGY documented in this encounter Visit Diagnoses Diagnosis Severe persistent asthma without complication Hypogammaglobulinemia (HCC) Hypogammaglobulinaemia, unspecified Severe persistent asthma, unspecified whether complicated documented in this encounter Care Teams Jewel Bearing Turner Relationship Specialty Start Date End Date Chad Das MD [address] [place] [phone] PCP - General Internal Medicine 07/29/14 12/11/22 Ta Peng MD [address] [place] [address] PCP - General Internal Medicine 12/12/22 documented as of this encounter
--- OUTSIDE RECORDS SUMMARY | 2024-10-12 13:22 | XMS_ITS | Encounter Summary ---
Author Organization [facility] Address [address] [place] [address] Care Team Providers Care Education Faculty Member Name Role Phone Chad Das MD Primary Care Provider [phone] Ta Peng MD Primary Care Provider + Reason for Visit * Reason Onset Date Comments Provider Call Back 01/05/2019 Encounter Details Date Type Department Care Team Description 01/05/2019 Telephone Pulmonology - [place] [address] [facility] [address] [place] [address] Rafael Busch MD Provider Call Back Social History Tobacco Use Types Packs/Day Years [...] encounter Miscellaneous Notes * Telephone Encounter - Milka Duron - 01/05/2019 4:[address] Tessa Saez, SUPERVISOR SHOW OPERATIONS @ [facility] would like Dr Busch to return a call to her HARPREET. Call [phone] documented in this encounter Plan of Treatment Not on file documented as of this encounter Visit Diagnoses Not on filedocumented in this encounter Care Teams Education Faculty Member Relationship Specialty Start Date End Date Chad Das MD [address] [place] [phone] PCP - General Internal Medicine 07/29/14 12/11/22 Ta Peng MD [address] [place] [phone] PCP - General Internal Medicine 12/12/22 documented as of this encounter
--- OUTSIDE RECORDS SUMMARY | 2024-10-12 13:22 | XMS_ITS | Encounter Summary ---
Author Organization [facility] Address [address] [place] [address] Care Team Providers Care Dye House Vat Worker Name Role Phone Chad Das MD Primary Care Provider [phone] Ta Peng MD Primary Care Provider + Reason for Visit * Reason Onset Date Comments Faxed Refill 06/17/2020 Encounter Details Date Type Department Care Team Description 06/17/2020 Refill Adult Medicine [address] [address] Chad Das MD [address] [place] [address] Faxed Refill Social History Tobacco Use Types Packs/Day Years [...] encounter Miscellaneous Notes * Telephone Encounter - Arabella Wallace C.M.A. - 06/19/2020 2:19 PM EST Message left for patient to return my call, needs appt * Telephone Encounter - Marilin Conway - 06/17/2020 3:56 PM EST Patient would like script to be: E-PRESCRIBED/FAXED TO PHARMACY WHEN WAS THE PATIENT'S LAST APPOINTMENT IN ADULT MEDICINE? 09/08/19 WHEN WAS THE LAST TIME THE PATIENT SAW THEIR PCP? Has not seen pcp Does patient have an upcoming appointment? Patient was sent a My Chart request to set up an appointment as they are due. (THE MEDICATION REQUESTED IS ON THE MED LIST ABOVE) All of the medications requested were on the CURRENT MEDS list Did you check the Pharmacy information above?: YES Patient wants: 30 -day supply Is this a mail order prescription request ? NO If the refill is from a FAXED refill request what is the RX # listed on the fax? N/A Patients current insurance carrier is: Payor: [employer] / Plan: WORKERS COMPENSATION/[place] / Product Type: OTHER documented in this encounter Plan of Treatment Not on file documented as of this encounter Visit Diagnoses Not on filedocumented in this encounter Care Teams Dye House Vat Worker Relationship Specialty Start Date End Date Chad Das MD [address] [place] [phone] PCP - General Internal Medicine 07/29/14 12/11/22 Ta Peng MD [address] [place] [address] PCP - General Internal Medicine 12/12/22 documented as of this encounter
--- OUTSIDE RECORDS SUMMARY | 2024-10-12 13:22 | XMS_ITS | Encounter Summary ---
Author Organization [facility] Address [address] [place] [address] Care Team Providers Care Material Expediter Name Role Phone Chad Das MD Primary Care Provider [phone] Ta Peng MD Primary Care Provider + Reason for Visit * Reason Onset Date Comments medication problems 09/16/2019 Encounter Details Date Type Department Care Team Description 09/16/2019 Telephone Adult Medicine [address] [address] Trena Funes PA medication problems Social History Tobacco Use Types Packs/Day Years [...] encounter Miscellaneous Notes * Telephone Encounter - Trena Rosas PA-C - 09/16/2019 3:27 PM EST Zanaflex has been sent. * Telephone Encounter - Trena Joaquin - 09/16/2019 2:13 PM EST Who is calling? A pharmacist: Pharmacy: [facility] Pharmacy Name of the medication methocarbamol (ROBAXIN) 500 MG tablet What is the specific problem or interaction? Alternative requested: says non preferred, says Tizanidine 2 MG or Cyclobenzaprine is preferred If the patient is having a problem with taking the med - how long has the problem been going on? N/A documented in this encounter Plan of Treatment Not on file documented as of this encounter Visit Diagnoses Not on filedocumented in this encounter Care Teams Material Expediter Relationship Specialty Start Date End Date Chad Das MD [address] [place] [address] PCP - General Internal Medicine 07/29/14 12/11/22 Ta Peng MD [address] [place] [address] PCP - General Internal Medicine 12/12/22 documented as of this encounter
--- OUTSIDE RECORDS SUMMARY | 2024-10-12 13:22 | XMS_ITS | Encounter Summary ---
Author Organization [facility] Address [address] [place] [address] Care Team Providers Care Plastic Worker Name Role Phone Chad Das MD Primary Care Provider [phone] Ta Peng MD Primary Care Provider + Encounter Details Date Type Department Care Team Description 07/17/2017 Release of Information Medical Records [address] [place] [address] Abstract, Provider Social History Tobacco Use Types Packs/Day Years [...] on filedocumented in this encounter Care Teams Plastic Worker Relationship Specialty Start Date End Date Chad Das MD [address] [place] [address] PCP - General Internal Medicine 07/29/14 12/11/22 Ta Peng MD [address] [place] [address] PCP - General Internal Medicine 12/12/22 documented as of this encounter
--- OUTSIDE RECORDS SUMMARY | 2024-10-12 13:22 | XMS_ITS | Encounter Summary ---
Author Organization [facility] Address [address] [place] [address] Care Team Providers Care Children'S Nursery Assistant Name Role Phone Chad Das MD Primary Care Provider [phone] Ta Peng MD Primary Care Provider + Encounter Details Date Type Department Care Team Description 12/27/2019 [place] Refinisher Report Medical Records [address] [place] [address] Rafael Busch MD Social History Tobacco Use [...] on filedocumented in this encounter Care Teams Children'S Nursery Assistant Relationship Specialty Start Date End Date Chad Das MD [address] [place] [address] PCP - General Internal Medicine 07/29/14 12/11/22 Ta Peng MD [address] [place] [address] PCP - General Internal Medicine 12/12/22 documented as of this encounter
--- OUTSIDE RECORDS SUMMARY | 2024-10-12 13:22 | XMS_ITS | Encounter Summary ---
Author Organization [facility] Address [address] [place] [address] Care Team Providers Care Squadron Worker Name Role Phone Chad Das MD Primary Care Provider [phone] Ta Peng MD Primary Care Provider + Reason for Visit * Reason Onset Date Comments Medication 10/08/2017 Encounter Details Date Type Department Care Team Description 10/08/2017 Refill Pulmonology - [place] [address] [facility] [address] [place] [phone] Nelson Mckeon MD Medication Social History Tobacco Use Types Packs/Day Years [...] encounter Miscellaneous Notes * Telephone Encounter - Samina Nicole M.A. - 10/09/2017 8:56 AM EST Called in script * Telephone Encounter - Angela Mccannart - 10/09/2017 8:46 AM EST Pt is calling stating that her medication is still not @ the pharmacy. Please resend. States needs HARPREET to help her breath. Please advise. * Telephone Encounter - Samina Nicole M.A. - 10/08/2017 8:39 AM EST Please resend scrpit * Telephone Encounter - Priya Treadwell - 10/08/2017 8:35 AM EST The pharmacy told her the script was not there documented in this encounter Plan of Treatment Not on file documented as of this encounter Visit Diagnoses Not on filedocumented in this encounter Care Teams Squadron Worker Relationship Specialty Start Date End Date Chad Das MD [address] [place] [address] PCP - General Internal Medicine 07/29/14 12/11/22 Ta Pegn MD [address] [place] [address] PCP - General Internal Medicine 12/12/22 documented as of this encounter
--- OUTSIDE RECORDS SUMMARY | 2024-10-12 13:22 | XMS_ITS | Encounter Summary ---
Author Organization [facility] Address [address] [place] [address] Care Team Providers Care Trading Analyst Name Role Phone Chad Das MD Primary Care Provider [phone] Ta Peng MD Primary Care Provider + Encounter Details Date Type Department Care Team Description 02/15/2015 Pt. Non Urgent Medic al Question Adult Medicine [address] [address] Jermain Georges PA-C Social History Tobacco Use [...] on file documented as of this encounter Progress Notes * Samina Caro M.A. - 02/16/2015 8:27 AM EDTFrom: Desi Dickens To: Jermain Georges PA-C Sent: 02/15/2015 9:48 PM EDT Subject: Ativan Hello Dr Georges. I need a new prescription for my Ativan and it was denied when I called today. documented in this encounter Plan of Treatment Not on file documented as of this encounter Visit Diagnoses Not on filedocumented in this encounter Care Teams Trading Analyst Relationship Specialty Start Date End Date Chad Das MD [address] [place] [address] PCP - General Internal Medicine 07/29/14 12/11/22 Ta Peng MD [address] [place] [address] PCP - General Internal Medicine 12/12/22 documented as of this encounter
--- OUTSIDE RECORDS SUMMARY | 2024-10-12 13:22 | XMS_ITS | Encounter Summary ---
Author Organization [facility] Address [address] [place] [address] Care Team Providers Care Forming Department Supervisor Name Role Phone Ta Peng MD Primary Care Provider + Reason for Visit * Reason Onset Date Comments Prior Authorization 08/19/2023 Encounter Details Date Type Department Care Team Description 08/19/2023 Telephone Endocrinology - [place] [address] [place] [address] Kathy Busch PA-C [address] [place] [address] Prior Authorization Social History Tobacco Use Types Packs/Day Years [...] encounter Miscellaneous Notes * Telephone Encounter - Breanna Baker M.A. - 08/22/2023 3:43 PM EST Auth approved Exp 08/22/24 Faxed to pharm Breanna Baker Prior Auth Dep Ext [id number] * Telephone Encounter - Breanna Baker M.A. - 08/21/2023 12:25 PM EST Insurance wanted more info Faxed back Breanna Baker Prior Auth Dep Ext [id number] * Telephone Encounter - Breanna Baker M.A. - 08/20/2023 11:11 AM EST Auth sent with cover my meds Dx:obesity Will likely be denied due to dx Breanna Baker Prior Auth Dep Ext [id number] * Telephone Encounter - Praveen Goodman - 08/19/2023 11:27 AM EST Prior Authorization for Medication-do not complete and send this encounter unless you have the fax from the pharmacy. Is this a Cover My Meds request: [place] of Medication Ozempic Dose of Medication 4mg / 3ml What is the RX # from the faxed refill? [id number] How does patient take this med? injection What Pharmacy did the fax come from: [facility] Pharmacy fax #: [phone] documented in this encounter Plan of Treatment Not on file documented as of this encounter Visit Diagnoses Not on filedocumented in this encounter Care Teams Forming Department Supervisor Relationship Specialty Start Date End Date Ta Peng MD [address] [place] [address] PCP - General Internal Medicine 12/12/22 documented as of this encounter
--- OUTSIDE RECORDS SUMMARY | 2024-10-12 13:22 | XMS_ITS | Encounter Summary ---
Author Organization [facility] Address [address] [place] [address] Care Team Providers Care Escalator Mechanic Name Role Phone Chad Das MD Primary Care Provider [phone] Ta Peng MD Primary Care Provider + Reason for Visit * Reason Comments E-prescribe Rx Request Encounter Details Date Type Department Care Team Description 03/31/2019 Refill Adult Medicine [address] [address] Trena Funes PA E-prescribe Rx Request Social History Tobacco Use [...] encounter Miscellaneous Notes * Telephone Encounter - Meme Peres - 03/31/2019 9:27 AM EDT Patient would like script to be: E-PRESCRIBED/FAXED TO PHARMACY WHEN WAS THE PATIENT'S LAST APPOINTMENT IN ADULT MEDICINE? 11/23/18 WHEN WAS THE LAST TIME THE PATIENT SAW THEIR PCP? 04/10/15 Does patient have an upcoming appointment? No-unable to reach left [facility] to call for appointment due to refill request. Appt due (THE MEDICATION REQUESTED IS ON THE MED [...] N/A Patients current insurance carrier is: Payor: [employer] FFS / Plan: [employer] ALLIANCE / Product Type: MEDICAID RISK documented in this encounter Plan of Treatment Not on file documented as of this encounter Visit Diagnoses Diagnosis Breast pain Mastodynia Encounter for screening mammogram for malignant neoplasm of breast Other screening mammogram documented in this encounter Care Teams Escalator Mechanic Relationship Specialty Start Date End Date Chad Das MD [address] [place] [phone] PCP - General Internal Medicine 07/29/14 12/11/22 Ta Peng MD [address] [place] [address] PCP - General Internal Medicine 12/12/22 documented as of this encounter
--- OUTSIDE RECORDS SUMMARY | 2024-10-12 13:22 | XMS_ITS | Encounter Summary ---
Author Organization [facility] Address [address] [place] [address] Care Team Providers Care Wood Room Supervisor Name Role Phone Chad Das MD Primary Care Provider [phone] Ta Peng MD Primary Care Provider + Reason for Visit * Reason Comments E-prescribe Rx Request Encounter Details Date Type Department Care Team Description 02/09/2018 Refill Pulmonology - [address] [place] [phone] Mirlande Lau NP E-prescribe Rx Request Social History Tobacco Use [...] encounter Miscellaneous Notes * Telephone Encounter - Christine Sagastume M.A. - 02/10/2018 11:03 AM EDT Mirlande Patient seen by you in the past. Please review. vf * Telephone Encounter - Priya Treadwell - 02/09/2018 8:40 AM EDT Patient would like script to be: E-PRESCRIBED/FAXED TO PHARMACY WHEN WAS THE PATIENT'S LAST APPOINTMENT WITH THE PRESCRIBING PROVIDER? 01/20/18 Does patient have an upcoming appointment? Yes (THE MEDICATION REQUESTED IS ON THE MED LIST ABOVE) All of the medications requested were on the CURRENT MEDS list Did you check the Pharmacy information above?: YES Patient wants: 90 -day supply Is this a mail order prescription request ? NO Patients current insurance carrier is: Payor: [employer] FFS / Plan: [employer] ALLIANCE / Product Type: MEDICAID RISK documented in this encounter Plan of Treatment Not on file documented as of this encounter Visit Diagnoses Not on filedocumented in this encounter Care Teams Wood Room Supervisor Relationship Specialty Start Date End Date Chad Das MD [address] [place] [address] PCP - General Internal Medicine 07/29/14 12/11/22 Ta Peng MD [address] [place] [address] PCP - General Internal Medicine 12/12/22 documented as of this encounter
--- OUTSIDE RECORDS SUMMARY | 2024-10-12 13:22 | XMS_ITS | Encounter Summary ---
Author Organization [facility] Address [address] [place] [address] Care Team Providers Care Network Contract Manager Name Role Phone Chad Das MD Primary Care Provider [phone] Ta Peng MD Primary Care Provider + Encounter Details Date Type Department Care Team Description 01/07/2018 Refill Pulmonology - [address] [place] [address] Nelson Mckeon MD Social History Tobacco Use Types Packs/Day [...] Telephone Encounter - Samina Nicole M.A. - 01/08/2018 7:37 AM EDTFrom: Desi Dickens To: Nelson Mckeon MD Sent: 01/07/2018 2:28 PM EDT Subject: Medication Renewal Request Original authorizing provider: Nelson Mckeon MD Desi Dickens would like a refill of the following medications: Ipratropium-Albuterol (DUONEB) 0.5-2.5 (3) MG/3ML Solution [Nelson Mckeon MD] Preferred pharmacy: [id number] - [place] - [address] [facility] [address] [place] [address] Comment: documented in this encounter Plan of Treatment Not on file documented as of this encounter Visit Diagnoses Diagnosis Severe persistent asthma without complication documented in this encounter Care Teams Network Contract Manager Relationship Specialty Start Date End Date Chad Das MD [address] [place] [address] PCP - General Internal Medicine 07/29/14 12/11/22 Ta Peng MD [address] [place] [address] PCP - General Internal Medicine 12/12/22 documented as of this encounter
--- OUTSIDE RECORDS SUMMARY | 2024-10-12 13:22 | XMS_ITS | Encounter Summary ---
Author Organization [facility] Address [address] [place] [address] Care Team Providers Care Raw Shellfish Preparer Name Role Phone Chad Das MD Primary Care Provider [phone] Ta Peng MD Primary Care Provider + Encounter Details Date Type Department Care Team Description 06/08/2019 Teacher Cclc Report Medical Records [address] [place] [address] Jermain Castano MD Social History Tobacco Use [...] on filedocumented in this encounter Care Teams Raw Shellfish Preparer Relationship Specialty Start Date End Date Chad Das MD [address] [place] [address] PCP - General Internal Medicine 07/29/14 12/11/22 Ta Peng MD [address] [place] [address]38 PCP - General Internal Medicine 12/12/22 documented as of this encounter
--- OUTSIDE RECORDS SUMMARY | 2024-10-12 13:23 | XMS_ITS | Encounter Summary ---
Author Organization [facility] Address [address] [place] [address] Care Team Providers Care Manager Project Name Role Phone Chad Das MD Primary Care Provider [phone] Ta Peng MD Primary Care Provider + Encounter Details Date Type Department Care Team Description 06/03/2022 Orders Only Medical Records [address] [place] [address] Kota Louise PA-C [address] [place] [address] Social History Tobacco Use Types Packs/Day Years [...] Procedure Name Priority Date/Time Associated Diagnosis Comments OUTSIDE SLEEP STUDY Routine 05/27/2022 documented in this encounter Results * OUTSIDE SLEEP STUDY (05/27/2022) Kota Louise PA-C PULMONOLOGY documented in this encounter Visit Diagnoses Not on filedocumented in this encounter Care Teams Manager Project Relationship Specialty Start Date End Date Chad Das MD [address] [place] [address] PCP - General Internal Medicine 07/29/14 12/11/22 Ta Peng MD [address] [place] [address] 31939 PCP - General Internal Medicine 12/12/22 documented as of this encounter
--- OUTSIDE RECORDS SUMMARY | 2024-10-12 13:23 | XMS_ITS | Encounter Summary ---
Author Organization [facility] Address [address] [place] [address] Care Team Providers Care Blasting Clay Miner Name Role Phone Chad Das MD Primary Care Provider [phone] Ta Peng MD Primary Care Provider + Encounter Details Date Type Department Care Team Description 05/07/2017 Night Triage Doc Medical Records [address] [place] [address] Abstract, Provider Social History Tobacco Use Types Packs/Day Years Used Date Smoking Tobacco: Every Day Cigarettes 1 5 Started: 08/11/2009; Last attempted to quit: 10/10/2015 Smokeless Tobacco: Never Comments:quit 09/2015 Alcohol Use Standard Drinks/Week Comments Yes 0 [...] on filedocumented in this encounter Care Teams Blasting Clay Miner Relationship Specialty Start Date End Date Chad Das MD [address] [place] [address] 86645 PCP - General Internal Medicine 07/29/14 12/11/22 Ta Peng MD [address] [place] [address] PCP - General Internal Medicine 12/12/22 documented as of this encounter
--- OUTSIDE RECORDS SUMMARY | 2024-10-12 13:23 | XMS_ITS | Clinical Summary ---
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 (07/13/2024): Follows [facility] Pulm Follows with [facility] on 6 [...] W/WEDGE RESECT; COMMENT: Wedge resection CHOLECYSTECTOMY PROCEDURE: AR LAPAROSCOPY SURG CHOLECYSTECTOMY Medical History Medical History [...] 12/30/2024 2:20 PM EDT Appointment Radiology Department [address] [phone] Health Maintenance Due Date Last Done Comments [...] * Cervical Cancer Screening: HPV (04/30/2023) Pathologist [facility] Cervical Cancer Screening: HPV abstracted, negative Historical Provider HEALTH MAINTENANCE Final Result * Lipid panel (12/13/2022) [facility] Triglycerides 135 0 - 150 mg/dL Cholesterol 151 0 - 200 mg/dL HDL 50 mg/dL Blood Venous blood specimen / Unknown Historical Provider LAB BLOOD ORDERABLES Rossy l Result * Hepatitis C Screening (05/01/2018) Pathologist [facility] Hepatitis C Screening abstracted us Historical Provider HEALTH MAINTENANCE Final Result from Last 3 Months or Most Recently Relevant to Health Maintenance Care Teams Dryer Feeder Relationship Specialty Start Date End Date Ta Peng MD PCP - General 12/12/22
--- OUTSIDE RECORDS SUMMARY | 2024-10-12 13:23 | XMS_ITS | Encounter Summary ---
Author Organization [facility] Address [address] [place] [address] Care Team Providers Care Pick Up Operator Name Role Phone Chad Das MD Primary Care Provider [phone] Ta Peng MD Primary Care Provider + Encounter Details Date Type Department Care Team Description 06/13/2021 Manager Operations Research Report Medical Records [address] [place] [address] Jermain Castano MD Social History Tobacco Use [...] on filedocumented in this encounter Care Teams Pick Up Operator Relationship Specialty Start Date End Date Chad Das MD [address] [place] [address] PCP - General Internal Medicine 07/29/14 12/11/22 Ta Peng MD [address] [place] [address] PCP - General Internal Medicine 12/12/22 documented as of this encounter
--- OUTSIDE RECORDS SUMMARY | 2024-10-12 13:23 | XMS_ITS | Encounter Summary ---
Author Organization [facility] Address [address] [place] [address] Care Team Providers Care Diversified Crops Ii Farmworker Name Role Phone Chad Das MD Primary Care Provider [phone] Ta Peng MD Primary Care Provider + Encounter Details Date Type Department Care Team Description 05/03/2016 Refill Adult Medicine [address] [address] Kota Louise PA-C [address] [place] [address] [phone] Social History Tobacco Use Types Packs/Day Years [...] on filedocumented in this encounter Care Teams Diversified Crops Ii Farmworker Relationship Specialty Start Date End Date Chad Das MD [address] [place] [address] PCP - General Internal Medicine 07/29/14 12/11/22 Ta Peng MD [address] [place] [address] PCP - General Internal Medicine 12/12/22 documented as of this encounter
--- OUTSIDE RECORDS SUMMARY | 2024-10-12 13:23 | XMS_ITS | Encounter Summary ---
Author Organization [facility] Address [address] [place] [address] Care Team Providers Care Regulatory Coordinator Name Role Phone Chad Das MD Primary Care Provider [phone] Ta Peng MD Primary Care Provider + Encounter Details Date Type Department Care Team Description 07/03/2021 Threading Machine Operator Report Medical Records [address] [place] [address] Rafael Busch MD Social History Tobacco Use [...] on filedocumented in this encounter Care Teams Regulatory Coordinator Relationship Specialty Start Date End Date Chad Das MD [address] [place] [address] PCP - General Internal Medicine 07/29/14 12/11/22 Ta Peng MD [address] [place] [address] PCP - General Internal Medicine 12/12/22 documented as of this encounter
--- OUTSIDE RECORDS SUMMARY | 2024-10-12 13:23 | XMS_ITS | Encounter Summary ---
Author Organization [facility] Address [address] [place] [address] Care Team Providers Care Dredge Pipeman Name Role Phone Chad Das MD Primary Care Provider [phone] Ta Peng MD Primary Care Provider + Encounter Details Date Type Department Care Team Description 03/19/2019 Release of Information Medical Records [address] [place] [address] Abstract, Provider Social History Tobacco Use Types [...] on filedocumented in this encounter Care Teams Dredge Pipeman Relationship Specialty Start Date End Date Chad Das MD [address] [place] [address] PCP - General Internal Medicine 07/29/14 12/11/22 Ta Peng MD [address] [place] [address] PCP - General Internal Medicine 12/12/22 documented as of this encounter
--- OUTSIDE RECORDS SUMMARY | 2024-10-12 13:23 | XMS_ITS | Encounter Summary ---
Author Organization [facility] Address [address] [place] [address] Care Team Providers Care Multimedia Coordinator Name Role Phone Ta Peng MD Primary Care Provider + Reason for Visit * Reason Onset Date Comments er follow up 05/09/2023 Encounter Details Date Type Department Care Team Description 05/09/2023 Telephone Gastroenterology - [place] [address] [phone] Kamran Almodovar PA-C [address] [address] er follow up Social History Tobacco Use Types Packs/Day Years [...] file Not on file Not on file COVID-19 Exposure Response Date Recorded In the last 10 days, have yo u been in contact with someone who was confirmed or suspected to have Coronavirus/COVID-19? No / Unsure 04/30/2023 1:26 PM EDT documented as of this encounter Miscellaneous Notes * Telephone Encounter - Marline Starr 05/13/2023 1:23 PM EDT Patient called back and was advised. She is upset but wanted to be placed on a cancel list. * Telephone Encounter - Kamran Almodovar PA-C - 05/13/2023 10:29 AM EDT Have reviewed her results from 927 and 10 1 to the ER. She does not have pancreatitis as her lipaseis just minimally elevated. There is no signs of pancreatitis on the CT. If she is unable to keep food down, we can prescribe Zofran as well as Protonix to see if that will help settle her stomach. Please let me know what medication she might want to try. * Telephone Encounter - Marline Martin - 05/13/2023 10:15 AM EDT Patient was placed on a waitlist. Results are in your bin for review, thanks. * Telephone Encounter - Tish Leblanc L.P.N. - 05/13/2023 8:40 AM EDT Spoke with pt this am as she cancelled her ER follow up today with PCP team... she tells me she is waiting for the GI dept to return her call as she is unable to hold anything down... I will continueto follow the progress for the pt and call back later. * Telephone Encounter - Sara Bueno - 05/12/2023 9:53 AM EDT Patient called in 2x Friday as she was in the ER. Patient ended up back in [facility] on 05/11. Patient was treated and released. Patient still cannot eat. Please call patient. * Telephone Encounter - Koki Hays - 05/09/2023 4:04 PM EDT Patient calling back again, please see below * Telephone Encounter - Koki Hays - 05/09/2023 9:49 AM EDT Patient calling, was seen at [facility] 04/30, dx with pancreatitis. Patient states she cannot eat anything. Offered telehealth 07/30, patient states she cannot go 3 months like this. Requesting call back. documented in this encounter Plan of Treatment Not on file documented as of this encounter Visit Diagnoses Not on filedocumented in this encounter Care Teams Multimedia Coordinator Relationship Specialty Start Date End Date Ta Peng MD [address] [place] [address] PCP - General Internal Medicine 12/12/22 documented as of this encounter
--- OUTSIDE RECORDS SUMMARY | 2024-10-12 13:23 | XMS_ITS | Encounter Summary ---
Author Organization [facility] Address [address] [place] [address] Care Team Providers Care Show Horse Driver Name Role Phone Chad Das MD Primary Care Provider [phone] Ta Peng MD Primary Care Provider + Encounter Details Date Type Department Care Team Description 09/28/2018 Telephone Pulmonology - [address] [place] [address] Rafael Busch MD Social History Tobacco Use [...] encounter Miscellaneous Notes * Telephone Encounter - Jil Cavanaugh M.A. - 10/28/2018 1:48 PM EDT Spoke with Nacho from [facility] [facility] he stated that the trelegy was denied. Pt must have An inadequate response,intolerance, or contraindication to a 14 day trial of any four of the step 1 agents in the past 180 days Step 1 agent Fluticasone?Salmeterol Aer Powder BA 232?14 MCG/ACT (Authorized Generic for AirDuo) The prior auth for the breo was also denied. * Telephone Encounter - Raquel Rubi M.A. - 09/29/2018 11:18 AM EST Prior auth done by form for flor Dx severe persistent asthma J45.50 Medications pt is on Symbicort,ventolin,singulair She was given sample of the juan manuely and pt states they help her asthma * Telephone Encounter - Ade Brennan - 09/28/2018 3:06 PM EST Patient needs a prior auth for Krgsuwjpsez-Cqlrzrcoh-Sdtvfi (TRELEGY ELLIPTA) 100-62.5-25 MCG/INH AEROSOL POWDER,BREATH ACTIVATED. documented in this encounter Plan of Treatment Not on file documented as of this encounter Visit Diagnoses Not on filedocumented in this encounter Care Teams Show Horse Driver Relationship Specialty Start Date End Date Chad Das MD [address] [place] [address] PCP - General Internal Medicine 07/29/14 12/11/22 Ta Peng MD [address] [place] [address] PCP - General Internal Medicine 12/12/22 documented as of this encounter
--- OUTSIDE RECORDS SUMMARY | 2024-10-12 13:23 | XMS_ITS | Encounter Summary ---
Author Organization [facility] Address [address] [place] [address] Care Team Providers Care Fur Remodeler Name Role Phone Chad Das MD Primary Care Provider [phone] Ta Peng MD Primary Care Provider + Encounter Details Date Type Department Care Team Description 07/03/2018 Refill Adult Medicine [address] [address] Kota Louise PA-C [address] [place] [address] [phone] Social History Tobacco Use Types Packs/Day Years [...] as of this encounter Visit Diagnoses Diagnosis Upper back pain on left side Pain in thoracic spine Severe persistent asthma with exacerbation Unspecified asthma, with exacerbation documented in this encounter Care Teams Fur Remodeler Relationship Specialty Start Date End Date Chad Das MD [address] [place] [address] PCP - General Internal Medicine 07/29/14 12/11/22 Ta Peng MD [address] [place] [address] PCP - General Internal Medicine 12/12/22 documented as of this encounter
--- OUTSIDE RECORDS SUMMARY | 2024-10-12 13:23 | XMS_ITS | Encounter Summary ---
Author Organization [facility] Address [address] [place] [address] Care Team Providers Care Donation Specialist Name Role Phone Chad Das MD Primary Care Provider [phone] Ta Peng MD Primary Care Provider + Encounter Details Date Type Department Care Team Description 10/06/2018 Hospital Medical Records [address] [place] [address] Milena Champion MD [address] [place] [address] Social History Tobacco Use Types Packs/Day Years [...] on filedocumented in this encounter Care Teams Donation Specialist Relationship Specialty Start Date End Date Chad Das MD [address] [place] [address] PCP - General Internal Medicine 07/29/14 12/11/22 Ta Peng MD [address] [place] [address] PCP - General Internal Medicine 12/12/22 documented as of this encounter
--- OUTSIDE RECORDS SUMMARY | 2024-10-12 13:23 | XMS_ITS | Encounter Summary ---
Author Organization [facility] Address [address] [place] [address] Care Team Providers Care Special Technical Operations Officer Name Role Phone Chad Das MD Primary Care Provider [phone] Ta Peng MD Primary Care Provider + Encounter Details Date Type Department Care Team Description 03/12/2022 Gravity Prospecting Supervisor Report Medical Records [address] [place] [address] Jermain Castano MD Social History Tobacco Use [...] on filedocumented in this encounter Care Teams Special Technical Operations Officer Relationship Specialty Start Date End Date Chad Das MD [address] [place] [address] PCP - General Internal Medicine 07/29/14 12/11/22 Ta Peng MD [address] [place] [address] PCP - General Internal Medicine 12/12/22 documented as of this encounter
--- OUTSIDE RECORDS SUMMARY | 2024-10-12 13:23 | XMS_ITS | Encounter Summary ---
Author Organization [facility] Address [address] [place] [address] Care Team Providers Care Skin Carver Name Role Phone Chad Das MD Primary Care Provider [phone] Ta Peng MD Primary Care Provider + Reason for Visit * Reason Comments E-prescribe Rx Request Encounter Details Date Type Department Care Team Description 03/10/2018 Refill Pulmonology - [address] [place] [phone] Rafael Busch MD E-prescribe Rx Request Social [...] encounter Miscellaneous Notes * Telephone Encounter - Priya Eben - 03/10/2018 7:49 AM EDT Patient would like script to be: E-PRESCRIBED/FAXED TO PHARMACY WHEN WAS THE PATIENT'S LAST APPOINTMENT WITH THE PRESCRIBING PROVIDER? 02/19/18 Does patient have an upcoming appointment? Yes (THE MEDICATION REQUESTED IS ON THE MED LIST ABOVE) All of the medications requested were on the CURRENT MEDS list Did you check the Pharmacy information above?: YES Patient wants: 90 -day supply Is this a mail order prescription request ? NO Patients current insurance carrier is: Payor: [employer] FFS / Plan: [employer] ALLIANCE / Product Type: MEDICAID RISK documented in this encounter Plan of Treatment Not on file documented as of this encounter Visit Diagnoses Not on filedocumented in this encounter Care Teams Skin Carver Relationship Specialty Start Date End Date Chad Das MD [address] [place] [address] PCP - General Internal Medicine 07/29/14 12/11/22 Ta Peng MD [address] [place] [address] PCP - General Internal Medicine 12/12/22 documented as of this encounter
--- OUTSIDE RECORDS SUMMARY | 2024-10-12 13:23 | XMS_ITS | Encounter Summary ---
Author Organization [facility] Address [address] [place] [address] Care Team Providers Care Service Writer Advisor Name Role Phone Chad Das MD Primary Care Provider [phone] Ta Peng MD Primary Care Provider + Reason for Visit * Reason Onset Date Comments Prior Authorization 06/09/2018 Daliresp Encounter Details Date Type Department Care Team Description 06/09/2018 Telephone Pulmonology - [address] [place] [address] Rafael Busch MD Prior Authorization (Leonid) Social History Tobacco Use Types Packs/Day Years [...] encounter Miscellaneous Notes * Telephone Encounter - Pooja Alexandre M.A. - 06/11/2018 8:25 AM EDT DEA approved for Daliresp 500 mcg tablet, approved from 06/10/2018-06/10/2020 Authorization # [id number] Pharmacy notified * Telephone Encounter - Pooja Alexandre M.A. - 06/10/2018 11:13 AM EDT Pt has tried these medications in the past budesonide-formoterol (SYMBICORT) 160-4.5 MCG/ACT inhaler 1 Inhaler 2 05/13/2018 06/12/2018 ?? Sig - Route: Inhale 2 Puffs into the lungs every 12 hours for 30 days. This medication has inhaler steroid: Rinse mouth with water and expectorate after each dose to prevent oral/esophageal candidiasis or fungal infection. - Inhalation fluticasone (FLOVENT HFA) 110 MCG/ACT inhaler (Discontinued) 1 Inhaler 0 09/23/2014 12/13/2014 ?? Sig - Route: Inhale 1 Puff into the lungs 2 times daily. - Inhalation Mometasone Furo-Formoterol Fum (DULERA IN) (Discontinued) 01/21/2017 ?? Sig - Route: Inhale ??into the lungs. - Inhalation Tiotropium [place] Monohydrate (SPIRIVA RESPIMAT) 1.25 MCG/ACT Aero Soln (Discontinued) 1 Inhaler 02/19/2018 ?? Sig - Route: Inhale 2.5 mcg into the lungs daily for 90 days. - Inhalation ALBUTEROL SULFATE (VENTOLIN HFA) 108 (90 BASE) MCG/ACT Aero Soln 1 Inhaler 5 04/01/2018 ?? Sig - Route: Inhale 2 Puffs into the lungs every 4 hours as needed for Cough, Wheezing or Shortness of Breath. - Inhalation PA done through [facility] paper, faxed. DX: Asthma; Asthma-COPD overlap syndrome * Telephone Encounter - Ade Tirado - 06/09/2018 3:58 PM EDT Pre Authorization for Medication-do not complete and send this encounter unless you have the fax from the pharmacy. Is this a Cover My Meds request: Yes -- [place]ja Code PHPTCV Name of Medication Daliresp Dose of Medication 500mcg What is the RX # from the faxed refill? Not listed How does patient take this med? Take 500 mcg by mouth daily for 30 days. - Oral What Pharmacy did the fax come from: [facility] pharmacy - [address] [place] [id number] Pharmacy fax #: [phone] [employer] Party Information from fax: What Prescription Plan does the patient have? BIN/PCN if applicable: Cardholder ID: Person Code: Relationship Code: Help desk phone: documented in this encounter Plan of Treatment Not on file documented as of this encounter Visit Diagnoses Not on filedocumented in this encounter Care Teams Service Writer Advisor Relationship Specialty Start Date End Date Chad Das MD [address] [place] [address] PCP - General Internal Medicine 07/29/14 12/11/22 Ta Peng MD [address] [place] [address] PCP - General Internal Medicine 12/12/22 documented as of this encounter
--- OUTSIDE RECORDS SUMMARY | 2024-10-12 13:23 | XMS_ITS | Encounter Summary ---
Author Organization [facility] Address [address] [place] [address] Care Team Providers Care Warehouse Inventory Clerk Name Role Phone Chad Das MD Primary Care Provider [phone] Ta Peng MD Primary Care Provider + Reason for Visit * Reason Comments E-prescribe Rx Request Encounter Details Date Type Department Care Team Description 07/06/2018 Refill Pulmonology - [place] [address] [facility] [address] [place] [address] Rob William MD [address] [place] [address] E-prescribe Rx Request Social History Tobacco Use [...] encounter Miscellaneous Notes * Telephone Encounter - Gela Coe - 07/06/2018 7:42 AM EST Patient would like script to be: E-PRESCRIBED/FAXED TO PHARMACY WHEN WAS THE PATIENT'S LAST APPOINTMENT WITH THE PRESCRIBING PROVIDER? 04/10/2018 Does patient have an upcoming appointment? Yes 09/08/2018 (THE MEDICATION REQUESTED IS ON THE MED LIST ABOVE) All of the medications requested were on the CURRENT MEDS list Did you check the Pharmacy information above?: YES Patient wants: 30 -day supply Is this a mail order prescription request ? NO Patients current insurance carrier is: Payor: [employer] FFS / Plan: [employer] ALLIANCE / Product Type: MEDICAID RISK documented in this encounter Plan of Treatment Not on file documented as of this encounter Visit Diagnoses Not on filedocumented in this encounter Care Teams Warehouse Inventory Clerk Relationship Specialty Start Date End Date Chad Das MD [address] [place] [address] PCP - General Internal Medicine 07/29/14 12/11/22 Ta Peng MD [address] [place] [address]682 PCP - General Internal Medicine 12/12/22 documented as of this encounter
--- OUTSIDE RECORDS SUMMARY | 2024-10-12 13:23 | XMS_ITS | Encounter Summary ---
Author Organization [facility] Address [address] [place] [address] Care Team Providers Care Lead Blender Name Role Phone Chad Das MD Primary Care Provider [phone] Ta Peng MD Primary Care Provider + Encounter Details Date Type Department Care Team Description 04/24/2016 Business Doc Medical Records [address] [place] [address] Abstract, Provider Social History Tobacco Use Types [...] on filedocumented in this encounter Care Teams Lead Blender Relationship Specialty Start Date End Date Chad Das MD [address] [place] [address] PCP - General Internal Medicine 07/29/14 12/11/22 Ta Peng MD [address] [place] [address] PCP - General Internal Medicine 12/12/22 documented as of this encounter
--- OUTSIDE RECORDS SUMMARY | 2024-10-12 13:23 | XMS_ITS | Encounter Summary ---
Author Organization [facility] Address [address] [place] [address] Care Team Providers Care Charger Tester Name Role Phone Chad Das MD Primary Care Provider [phone] Ta Peng MD Primary Care Provider + Reason for Referral * EXTERNAL (Routine) - Authorized/Booked Specialty Diagnoses / Procedures Referred By Stella steel Referred To Contact Thoracic Surgery / Thoracic Surgeon Procedures REFERRAL TO THORACIC SURGEON Rafael Busch MD [address] [place] [phone] Jamar Carrillo [address] [place] [address] Referral ID Status Reason Start Date Expiration Date V isits Requested Visits Authorized SEE NOTE Authorized/B ooked 08/31/2018 11/29/2018 1 1 Encounter Details Date Type Department Care Team Description 08/31/2018 Orders Only Pulmonology - [place] [address] [facility] [address] [place] [phone] Rafael Busch MD Pneumonitis (Primary Dx) Social History Tobacco Use Types Packs/Day Years [...] as of this encounter Visit Diagnoses Diagnosis Pneumonitis- Primary Pneumonia, organism unspecified documented in this encounter Care Teams Charger Tester Relationship Specialty Start Date End Date Chad Das MD [address] [place] [address] PCP - General Internal Medicine 07/29/14 12/11/22 Ta Peng MD [address] [place] [address] PCP - General Internal Medicine 12/12/22 documented as of this encounter
--- OUTSIDE RECORDS SUMMARY | 2024-10-12 13:23 | XMS_ITS | Encounter Summary ---
Author Organization [facility] Address [address] [place] [address] Care Team Providers Care Dance Choreographer Name Role Phone Chad Das MD Primary Care Provider [phone] Ta Peng MD Primary Care Provider + Reason for Visit * Reason Onset Date Comments Faxed Order 10/20/2018 faxed nebulizer order to [facility]. Encounter Details Date Type Department Care Team Description 10/20/2018 Telephone Pulmonology - [address] [place] [address] Rafael Busch MD Faxed Order (faxed nebulizer order to [facility].) Social History Tobacco Use Types Packs/Day Years [...] on filedocumented in this encounter Care Teams Dance Choreographer Relationship Specialty Start Date End Date Chad Das MD [address] [place] [address] PCP - General Internal Medicine 07/29/14 12/11/22 Ta Peng MD [address] [place] [address] PCP - General Internal Medicine 12/12/22 documented as of this encounter
--- OUTSIDE RECORDS SUMMARY | 2024-10-12 13:23 | XMS_ITS | Encounter Summary ---
Author Organization [facility] Address [address] [place] [address] Care Team Providers Care Flame Cutting Supervisor Name Role Phone Chad Das MD Primary Care Provider [phone] Ta Peng MD Primary Care Provider + Encounter Details Date Type Department Care Team Description 09/12/2022 Plastic Eye Technician Report Medical Records [address] [place] [address] Jermain Castano MD Social History Tobacco Use [...] on filedocumented in this encounter Care Teams Flame Cutting Supervisor Relationship Specialty Start Date End Date Chad Das MD [address] [place] [address] PCP - General Internal Medicine 07/29/14 12/11/22 Ta Peng MD [address] [place] [address] PCP - General Internal Medicine 12/12/22 documented as of this encounter
--- OUTSIDE RECORDS SUMMARY | 2024-10-12 13:23 | XMS_ITS | Encounter Summary ---
Author Organization [facility] Address [address] [place] [address] Care Team Providers Care Water Reuse Program Manager Name Role Phone Chad Das MD Primary Care Provider [phone] Ta Peng MD Primary Care Provider + Encounter Details Date Type Department Care Team Description 05/20/2018 Release of Information Medical Records [address] [place] [address] Abstract, Provider Social History Tobacco Use Types [...] on filedocumented in this encounter Care Teams Water Reuse Program Manager Relationship Specialty Start Date End Date Chad Das MD [address] [place] [address] PCP - General Internal Medicine 07/29/14 12/11/22 Ta Pneg MD [address] [place] [address] PCP - General Internal Medicine 12/12/22 documented as of this encounter
--- OUTSIDE RECORDS SUMMARY | 2024-10-12 13:23 | XMS_ITS | Encounter Summary ---
Author Organization [facility] Address [address] [place] [address] Care Team Providers Care Community Living Instructor Name Role Phone Chad Das MD Primary Care Provider [phone] Ta Peng MD Primary Care Provider + Encounter Details Date Type Department Care Team Description 01/25/2022 Senior Manager Creative Services Report Medical Records [address] [place] [address] Rafael Busch MD Social History Tobacco Use [...] on filedocumented in this encounter Care Teams Community Living Instructor Relationship Specialty Start Date End Date Chad Das MD [address] [place] [address] PCP - General Internal Medicine 07/29/14 12/11/22 Ta Peng MD [address] [place] [address] PCP - General Internal Medicine 12/12/22 documented as of this encounter
--- OUTSIDE RECORDS SUMMARY | 2024-10-12 13:23 | XMS_ITS | Encounter Summary ---
Author Organization [facility] Address [address] [place] [address] Care Team Providers Care Cytogeneticist Name Role Phone Ta Peng MD Primary Care Provider + Reason for Visit * Reason Onset Date Comments medication problems 12/13/2022 Encounter Details Date Type Department Care Team Description 12/13/2022 Telephone Endocrinology - [address] [address] Kathy Busch PA-C [address] [place] [address] medication problems Social History Tobacco Use Types Packs/Day Years Used Date Smoking Tobacco: Every Day Cigarettes Smokeless Tobacco: Never Comments:Started age 29; max 2 PPDs; 12/12/22, 3/ PPD Alcohol Use Standard Drinks/Week Comments Not [...] suspected to have Coronavirus/COVID-19? No / Unsure 12/12/2022 3:51 PM EDT documented as of this encounter Miscellaneous Notes * Telephone Encounter - Kathy Busch PA-C - 12/13/2022 2:34 PM EDT Ozempic sent to the pharmacy * Telephone Encounter - Alysa Soares - 12/13/2022 2:26 PM EDT Patient's insurance states Ozempic or Trulicity are covered with no special requirements. Mounjaro is covered with a PA. * Telephone Encounter - Tessa Karimi M.A. - 12/13/2022 2:19 PM EDT Spoke to patient. She will call her insurance and get back to us with information. * Telephone Encounter - Kathy Busch PA-C - 12/13/2022 2:00 PM EDT Please tell patient that Wegovy not covered by insurance. She needs to call insurance and see if they do cover any other weight loss medication and if they have any requirements for coverage * Telephone Encounter - Alysa Soares - 12/13/2022 11:10 AM EDT Who is calling? Fax from [facility] Name of the medication Wegovy 0.25 mg/0.5 ML Pen What is the specific problem or interaction? Alternative requested: drug not on formulary If the patient is having a problem with taking the med - how long has the problem been going on? N/A documented in this encounter Plan of Treatment Not on file documented as of this encounter Visit Diagnoses Not on filedocumented in this encounter Care Teams Cytogeneticist Relationship Specialty Start Date End Date Ta Peng MD [address] [place] [address] PCP - General Internal Medicine 12/12/22 documented as of this encounter
--- OUTSIDE RECORDS SUMMARY | 2024-10-12 13:23 | XMS_ITS | Encounter Summary ---
Author Organization [facility] Address [address] [place] [address] Care Team Providers Care Robotics Application Engineer Name Role Phone Chad Das MD Primary Care Provider [phone] Ta Peng MD Primary Care Provider + Encounter Details Date Type Department Care Team Description 10/12/2018 Release of Information Medical Records [address] [place] [address] Abstract, Provider Social History Tobacco Use Types [...] on filedocumented in this encounter Care Teams Robotics Application Engineer Relationship Specialty Start Date End Date Chad Das MD [address] [place] [address] PCP - General Internal Medicine 07/29/14 12/11/22 Ta Peng MD [address] [place] [address] PCP - General Internal Medicine 12/12/22 documented as of this encounter
--- OUTSIDE RECORDS SUMMARY | 2024-10-12 13:23 | XMS_ITS | Encounter Summary ---
Author Organization [facility] Address [address] [place] [address] Care Team Providers Care Air Press Operator Name Role Phone Chad Das MD Primary Care Provider [phone] Ta Peng MD Primary Care Provider + Reason for Visit * Reason Comments E-prescribe Rx Request Encounter Details Date Type Department Care Team Description 04/10/2017 Refill Adult Medicine [address] [address] Jermain Georges PA-C E-prescribe Rx Request Social History Tobacco Use [...] encounter Miscellaneous Notes * Telephone Encounter - Suman Dawson - 04/10/2017 9:18 AM EDT Patient would like script to be: E-PRESCRIBED/FAXED TO PHARMACY WHEN WAS THE PATIENT'S LAST APPOINTMENT IN ADULT MEDICINE? 11/07/16 WHEN WAS THE LAST TIME THE PATIENT SAW THEIR PCP? 08/18/15 Does patient have an upcoming appointment? Yes 04/10/17 (THE MEDICATION REQUESTED IS ON THE MED LIST ABOVE) All of the medications requested were on the CURRENT MEDS list Did you check the Pharmacy information above?: YES Patient wants: 30 -day supply Is this a mail order prescription request ? NO Patients current insurance carrier is: Payor: [employer] / Plan: [employer] $0 SIMEON [id number] / Product Type: MEDICAID [id number] documented in this encounter Plan of Treatment Not on file documented as of this encounter Visit Diagnoses Diagnosis Cervical paraspinal muscle spasm Spasm of muscle documented in this encounter Care Teams Air Press Operator Relationship Specialty Start Date End Date Chad Das MD [address] [place] [address] PCP - General Internal Medicine 07/29/14 12/11/22 Ta Peng MD [address] [place] [address] PCP - General Internal Medicine 12/12/22 documented as of this encounter
--- OUTSIDE RECORDS SUMMARY | 2024-10-12 13:23 | XMS_ITS | Encounter Summary ---
Author Organization [facility] Address [address] [place] [address] Care Team Providers Care Ordering Machine Operator Name Role Phone Chad Das MD Primary Care Provider [phone] Ta Peng MD Primary Care Provider + Encounter Details Date Type Department Care Team Description 04/03/2021 Superintendent Plant Report Medical Records [address] [place] [address] Rafael Busch MD Social History Tobacco Use [...] on filedocumented in this encounter Care Teams Ordering Machine Operator Relationship Specialty Start Date End Date Chad Das MD [address] [place] [address] PCP - General Internal Medicine 07/29/14 12/11/22 Ta Peng MD [address] [place] [address] PCP - General Internal Medicine 12/12/22 documented as of this encounter
--- OUTSIDE RECORDS SUMMARY | 2024-10-12 13:23 | XMS_ITS | Encounter Summary ---
Author Organization [facility] Address [address] [place] [address] Care Team Providers Care Curb Setter Name Role Phone Chad Das MD Primary Care Provider [phone] Ta Peng MD Primary Care Provider + Encounter Details Date Type Department Care Team Description 07/21/2018 Switching Clerk Report Medical Records [address] [place] [address] Jermain Castano MD Social History Tobacco Use [...] on filedocumented in this encounter Care Teams Curb Setter Relationship Specialty Start Date End Date Chad Das MD [address] [place] [address] PCP - General Internal Medicine 07/29/14 12/11/22 Ta Peng MD [address] [place] [address] PCP - General Internal Medicine 12/12/22 documented as of this encounter
--- OUTSIDE RECORDS SUMMARY | 2024-10-12 13:23 | XMS_ITS | Encounter Summary ---
Author Organization [facility] Address [address] [place] [address] Care Team Providers Care Spiral Winding Machine Helper Name Role Phone Chad Das MD Primary Care Provider [phone] Ta Peng MD Primary Care Provider + Encounter Details Date Type Department Care Team Description 01/22/2021 Reconciler Report Medical Records [address] [place] [address] Rafael Busch MD Social History Tobacco Use [...] on filedocumented in this encounter Care Teams Spiral Winding Machine Helper Relationship Specialty Start Date End Date Chad Das MD [address] [place] [address] PCP - General Internal Medicine 07/29/14 12/11/22 Ta Peng MD [address] [place] [address] PCP - General Internal Medicine 12/12/22 documented as of this encounter
[2024-10-13 18:58] LABS: Immunoglobulin E 4 kU/L (<OR=114)
[2024-10-14 08:19] LABS: IgA 165 mg/dL (47-310); IgG 973 mg/dL (600-1640); IgM 51 mg/dL (50-300)
== END ==
LOC: HO.CARD 10:16
PROVIDERS: PCP Pediatrics; Visit Provider Hospitalist
DX: J44.9 Chronic obstructive pulmonary disease, unspecified (principal); J84.9 Interstitial pulmonary disease, unspecified; R05.3 Chronic cough; R00.0 Tachycardia, unspecified; D80.1 Nonfamilial hypogammaglobulinemia; F17.200 Nicotine dependence, unspecified, uncomplicated; Z71.6 Tobacco abuse counseling
CPT/HCPCS: 36415; 80048; 82784; 82785; 84443; 85025; 85379; 85652; 93005; 99212

== ENCOUNTER → 2024-10-12 10:58 | Outpatient (BNV) | payer OTHER, SELFPAY | PROVIDERS: PCP Pediatrics; Visit Provider Internal Medicine Cardiovascular Disease | DX: R00.0 Tachycardia, unspecified (principal) | CPT/HCPCS: 93010 ==

== ENCOUNTER 2024-10-13 12:15 | Outpatient (AMB) | payer OTHER, SELFPAY ==
--- NOTE | 2024-10-13 12:25 | MHC.OFFVIS ---
Vital Signs 10/13/24 12:27 Height 5 ft 3 in Weight 209 lb BMI 37.0 BP 116/72 Blood Pressure Location Lt brachial Position Sitting Pulse 97 Pulse Oximetry (%) 98 Oxygen Delivery Method Room Air Intake Visit Reasons: chronic diarrhea/Emily pt Intake Note: Patient complex follow up for chronic diarrhea/ Emily pt Patient said medication is helping with diarrhea. Denies any GI issues for today visit. Advertising Agency Manager Required: No Accompanied by: Self / Same As Patient Allergies iodine [IODINE] Allergy (Severe, Verified 10/13/24 12:23) RASH Penicillins [PENICILLINS] Allergy (Severe, Verified 10/13/24 12:23) THROAT CLOSES furosemide [From Lasix] Adverse Reaction (Intermediate, Verified 10/13/24 12:23) Dizziness SHELLFISH Allergy (Severe, Uncoded 10/12/24 10:24) RASH HPI Comments Details: 43 y.o F with PMH of CCY, CVID, asthma/COPD overlap who is here for follow up. [facility] [place] - reports never got results of egd/colo last year. In addition, wanted to make sure she stayed established with the practice. Was being seen by [facility] for chronic diarrhea that started after CCY. W/up neg for celiac, IBD, micorscopic colitis. Has been responding well to colesevelam. No loose BMs. EGD/colo 2020: Normal duodenal bx. Gastritis, no HP. Hiatal hernia. Normal colo bx. No polyps, repeat rec'd 10 years. 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 Tobacco dependence Asthma-COPD overlap syndrome Cough Hypogammaglobulinemia ILD (interstitial lung disease) Asthma Surgical History Hx of cholecystectomy Family History Family/Other No family history of colorectal cancer Social History Patient Tobacco Use Status: Current everyday Tobacco user Tobacco use type: Cigarette Cigarette Packs Per Day: 0.5 Cigarettes Per Day: 10.0 Years Smoked: 20 years Review of Systems Const All systems reviewed & are unremarkable except as noted in HPI and below Physical Exam Vital Signs: Last Vital Signs Pulse 97 10/13/24 12:27 BP 116/72 10/13/24 12:27 Pulse Ox 98 10/13/24 12:27 Oxygen Delivery Method Room Air 10/13/24 12:27 BMI result Body Mass Index 37.0 No apparent distress Nonicteric Abdomen soft, nondistended Alert and oriented x3, normal gait Quality Reporting (2019) Adult ([facility] 138/10/02/68) Smoking risk assessment performed?: Yes Patient Tobacco Use Status: Current everyday Tobacco user Assessment & Plan Assessment & Plan (1) Chronic diarrhea: Code(s): K52.9 - Noninfective gastroenteritis and colitis, unspecified Category: Medical (2) Hypogammaglobulinemia: Code(s): D80.1 - Nonfamilial hypogammaglobulinemia Category: Medical Plan 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 Better with bile acid sequestrant + S/Q immuglobulin therapy through pulm. No acute issues today. Cont colesevelam 1250 BID Follow up 1 year Coding Level of Care Code Est Pt Level 3 (56369) Diagnoses Chronic diarrhea K52.9 Hypogammaglobulinemia D80.1
[2024-10-13 12:27] VITALS: BP 116/72; PULSE 97; O2SAT 98; BMI 37.0
--- OUTSIDE RECORDS SUMMARY | 2024-10-13 14:38 | XMS_ITS | Encounter Summary ---
Author Organization [facility] Address [address] [place] [address] Care Team Providers Care Hris Administrator Name Role Phone Chad Das MD Primary Care Provider [phone] Ta Peng MD Primary Care Provider + Encounter Details Date Type Department Care Team Description 05/23/2020 Quantitative Software Engineer Report Medical Records [address] [place] [address] Jermain Castano MD Social History Tobacco Use [...] on filedocumented in this encounter Care Teams Hris Administrator Relationship Specialty Start Date End Date Chad Das MD [address] [place] [address] PCP - General Internal Medicine 07/29/14 12/11/22 Ta Peng MD [address] [place] [address] PCP - General Internal Medicine 12/12/22 documented as of this encounter
--- OUTSIDE RECORDS SUMMARY | 2024-10-13 14:38 | XMS_ITS | Encounter Summary ---
Author Organization [facility] Address [address] [place] [address] Care Team Providers Care Solution Developer Name Role Phone Chad Das MD Primary Care Provider [phone] Ta Peng MD Primary Care Provider + Encounter Details Date Type Department Care Team Description 10/19/2019 Campus Dean Report Medical Records [address] [place] [address] Jermain Castano MD Social History Tobacco Use [...] on filedocumented in this encounter Care Teams Solution Developer Relationship Specialty Start Date End Date Chad Das MD [address] [place] [address] PCP - General Internal Medicine 07/29/14 12/11/22 Ta Peng MD [address] [place] [address] PCP - General Internal Medicine 12/12/22 documented as of this encounter
--- OUTSIDE RECORDS SUMMARY | 2024-10-13 14:38 | XMS_ITS | Encounter Summary ---
Author Organization [facility] Address [address] [place] [address] Care Team Providers Care Real Estate Professional Name Role Phone Chad Das MD Primary Care Provider [phone] Ta Peng MD Primary Care Provider + Reason for Visit * Reason Onset Date Comments Provider Call Back 01/05/2019 Encounter Details Date Type Department Care Team Description 01/05/2019 Telephone Pulmonology - [place] [address] [facility] [address] [place] [address] Rafael Busch MD Provider Call [...] 01/05/2019 4:[address] Tessa Saez, HABILITATION ASSISTANT @ [facility] would like Dr Busch to return a call to her HARPRE[facility]. Call [phone] documented in this encounter Plan of Treatment Not on file documented as of this encounter Visit Diagnoses Not on filedocumented in this encounter Care Teams Real Estate Professional Relationship Specialty Start Date End Date Chad Das MD [address] [place] [address] PCP - General Internal Medicine 07/29/14 12/11/22 Ta Peng MD [address] [place] [address] PCP - General Internal Medicine 12/12/22 documented as of this encounter
--- OUTSIDE RECORDS SUMMARY | 2024-10-13 14:38 | XMS_ITS | Encounter Summary ---
Author Organization [facility] Address [address] [place] [address] Care Team Providers Care Surveyor Geodetic Name Role Phone Chad Das MD Primary Care Provider [phone] Ta Peng MD Primary Care Provider + Encounter Details Date Type Department Care Team Description 01/22/2019 Sales And Marketing Vice President Report Medical Records [address] [place] [address] Social History Tobacco Use Types Packs/Day Years [...] on filedocumented in this encounter Care Teams Surveyor Geodetic Relationship Specialty Start Date End Date Chad Das MD [address] [place] [address] PCP - General Internal Medicine 07/29/14 12/11/22 Ta Peng MD [address] [place] [address] PCP - General Internal Medicine 12/12/22 documented as of this encounter
--- OUTSIDE RECORDS SUMMARY | 2024-10-13 14:38 | XMS_ITS | Encounter Summary ---
Author Organization [facility] Address [address] [place] [address] Care Team Providers Care Consolidation Accountant Name Role Phone Chad Das MD Primary Care Provider [phone] Ta Peng MD Primary Care Provider + Encounter Details Date Type Department Care Team Description 01/12/2019 Mc Kay Machine Operator Report Medical Records [address] [place] [address] Jermain Castano MD Social History Tobacco Use [...] on filedocumented in this encounter Care Teams Consolidation Accountant Relationship Specialty Start Date End Date Chad Das MD [address] [place] [address] PCP - General Internal Medicine 07/29/14 12/11/22 Ta Peng MD [address] [place] [address] PCP - General Internal Medicine 12/12/22 documented as of this encounter
--- OUTSIDE RECORDS SUMMARY | 2024-10-13 14:38 | XMS_ITS | Encounter Summary ---
Author Organization [facility] Address [address] [place] [address] Care Team Providers Care Bunch Maker Name Role Phone Chad Das MD Primary Care Provider [phone] Ta Peng MD Primary Care Provider + Encounter Details Date Type Department Care Team Description 02/06/2018 Orders Only Pulmonology - [address] [place] [address] Rafael Busch MD Severe persistent asthma without [...] complicated documented in this encounter Care Teams Bunch Maker Relationship Specialty Start Date End Date Chad Das MD [address] [place] [address] PCP - General Internal Medicine 07/29/14 12/11/22 Ta Peng MD [address] [place] [address] PCP - General Internal Medicine 12/12/22 documented as of this encounter
--- OUTSIDE RECORDS SUMMARY | 2024-10-13 14:38 | XMS_ITS | Encounter Summary ---
Author Organization [facility] Address [address] [place] [address] Care Team Providers Care Patient Relations Coordinator Name Role Phone Chad Das MD Primary Care Provider [phone] Ta Peng MD Primary Care Provider + Encounter Details Date Type Department Care Team Description 06/28/2019 Mastic Worker Report Medical Records [address] [place] [address] Rafael Busch MD Social History Tobacco Use [...] on filedocumented in this encounter Care Teams Patient Relations Coordinator Relationship Specialty Start Date End Date Chad Das MD [address] [place] [address] PCP - General Internal Medicine 07/29/14 12/11/22 Ta Peng MD [address] [place] [address] PCP - General Internal Medicine 12/12/22 documented as of this encounter
--- OUTSIDE RECORDS SUMMARY | 2024-10-13 14:38 | XMS_ITS | Encounter Summary ---
Author Organization [facility] Address [address] [place] [address] Care Team Providers Care B2B Outside Sales Representative Name Role Phone Chad Das MD Primary Care Provider [phone] Ta Peng MD Primary Care Provider + Encounter Details Date Type Department Care Team Description 01/07/2018 Orders Only Pulmonology - [address] [place] [address] Rafael Busch MD Pneumonitis (Primary Dx) Social [...] on file documented as of this encounter Results * RHEUMATOID FACTOR ASSAY (01/20/2018 9:22 AM EDT) RHEUMATOID FACTOR < 10 <15 IU/mL 01/20/2018 10:43 AM EDT [facility] 01/20/2018 9:22 AM EDT 01/20/2018 9:22 AM EDT Rafael Busch MD LAB [facility] * (ABNORMAL) HYPERSENSITIVITY PANEL (01/20/2018 9:22 AM EDT) S. RECTIVIRGULA Not detected Not detected 01/28/2018 8:25 PM EDT [facility] SACCHAROMONOSPORA VIRIDIS Not detected Not detected 01/28/2018 8:25 PM EDT [facility] THERMOACTINOMYCES CANDIDUS Not detected Not detected 01/28/2018 8:25 PM EDT [facility] THERMOACTINOMYCES SACCHARI Not detected Not detected 01/28/2018 8:25 PM EDT [facility] THERMOACTINOMYCES VULGARIS Not detected Not detected 01/28/2018 8:25 PM EDT [facility] AUREOBASIDIUM PULLULANS IgG 3.1 <13.6 mcg/mL 01/28/2018 8:25 PM EDT [facility] ALTERNARIA ALTERNATA IgG 2.2 <13.6 mcg/mL 01/28/2018 8:25 PM EDT [facility] ASPERGILLUS FUMIGATUS Not detected Not detected 01/28/2018 8:25 PM EDT [facility] CLADOSPORIUM HERBARUM IgG 21.8(A) <14.7 mcg/mL 01/28/2018 8:25 PM EDT [facility] PENICILLIUM NOTATUM IgG 10.7 <17.5 mcg/mL 01/28/2018 8:25 PM EDT [facility] PHOMA SPP IgG 4.2 <6.6 mcg/mL 01/28/2018 8:25 PM EDT [facility] TRICHODERMA VIRIDAE IgG 2.9 <13.4 mcg/mL 01/28/2018 8:25 PM EDT [facility] Comment: A. pullulans IgG, A. alternata (m6) IgG, Cladosporium herbarum IgG, Penicillium notatum IgG, Phoma spp IgG and Trichoderma viride IgG: This test(s) was performed using a kit that has not been cleared or approved by the FDA. The analytical performance characteristics of this test have been determined by [employer], [place], [place]. This test should not be used for diagnosis without confirmation by other medically established means. ?? [facility] ?? Jevon Coyle M.D., Ph.D., Silverware Buffing Machine Operator ?? [id number] [place] [address] ?? [place] [address] ?? CLIA ??[id number] 01/20/2018 9:22 AM EDT 01/20/2018 9:22 AM EDT Rafael Busch MD LAB Performing Organization Address [facility] Co de Phone Number [facility] * RBC SEDIMENTATION RATE, NON-AUTO (01/20/2018 9:22 AM EDT) ERYTHROCYTE SEDIMENTATION RATE 6 0 - 20 mm/hr 01/20/2018 11:42 AM EDT [email or web address] 01/20/2018 9:22 AM EDT 01/20/2018 9:22 AM EDT Rafael Busch MD LAB Performing Organization Address [facility] de Phone Number [email or web address] * ANTINUCLEAR ANTIBODIES, ASSAY (01/20/2018 9:22 AM EDT) ANTI-NUCLEAR ANTIBODY SCREEN NEGATIVE NEGATIVE 01/22/2018 6:37 AM EDT [email or web address] Comment: PATRICIA test should be ordered only if a clinical evidence of SLE or other rheumatic condition exists. ??PATRICIA test should not be used for random screening for SLE. PATRICIA PATHOLOGIST REVIEW DR. SIFUENTES 01/22/2018 6:37 AM EDT [email or web address] 01/20/2018 9:22 AM EDT 01/20/2018 9:22 AM EDT Rafael Busch MD LAB Performing Organization Address [facility] Co de Phone [facility] * (ABNORMAL) CBC (AUTO DIFF PLATELET) (01/20/2018 9:22 AM EDT) WHITE BLOOD COUNT 18.2(H) 4.8 - 10.8 x10-3/uL 01/20/2018 10:15 AM EDT [email or web address] RED BLOOD COUNT 5.2(H) 3.8 - 4.8 x10-6/uL 01/20/2018 10:15 AM EDT [facility] Hemoglobin 14.2 11.5 - 16.0 g/dL 01/20/2018 10:15 AM EDT [facility] Hematocrit 45.3 35 - 47 % 01/20/2018 10:15 AM EDT [facility] MEAN CORPUSCULAR VOLUME 87.3 79 - 98 fL 01/20/2018 10:15 AM EDT [facility] HEMOGLOBIN 27.4 27 - 32 pg 01/20/2018 10:15 AM EDT [facility] HGB CONC 31.3(L) 32 - 37 g/dL 01/20/2018 10:15 AM EDT [facility] RED CELL DISTRIBUTION WIDTH 16.7(H) 11 - 15 % 01/20/2018 10:15 AM EDT [facility] PLT COUNT 255 130 - 400 x10-3/uL 01/20/2018 10:15 AM EDT [facility] MEAN PLATELET VOLUME 11.9(H) 7 - 11 fL 01/20/2018 10:15 AM EDT [facility] NRBC % AUTO 0.0 <1 % 01/20/2018 10:15 AM EDT [facility] NEUTROPHILS % 62.4 % 01/20/2018 10:15 AM EDT [facility] LYMPH % 27.9 % 01/20/2018 10:15 AM EDT [facility] MONO % 7.9 % 01/20/2018 10:15 AM EDT [facility] EOS % 0.4 % 01/20/2018 10:15 AM EDT [facility] BASO % 0.6 % 01/20/2018 10:15 AM EDT [facility] IMMATURE GRANULOCYTES % 0.8 % 01/20/2018 10:15 AM EDT [facility] NRBC # AUTO 0.00 <0.1 x10-3/uL 01/20/2018 10:15 AM EDT [facility] NEUT # 11.37(H) 1.5 - 7.0 x10-3/uL 01/20/2018 10:15 AM EDT [facility] LYMPH # 5.09(H) 1 - 5.0 x10-3/uL 01/20/2018 10:15 AM EDT [facility] MONO # 1.44(H) 0.2 - 1.0 x10-3/uL 01/20/2018 10:15 AM EDT [facility] EOS # 0.07 0 - 0.5 x10-3/uL 01/20/2018 10:15 AM EDT [facility] BASO # 0.11 0 - 0.2 x10-3/uL 01/20/2018 10:15 AM EDT [facility] IMMATURE GRANULOCYTES # 0.15(H) 0 - 0.03 x10-3/uL 01/20/2018 10:15 AM EDT [facility] 01/20/2018 9:22 AM EDT 01/20/2018 9:22 AM EDT Rafael Busch MD LAB [facility] documented in this encounter Visit Diagnoses Diagnosis Pneumonitis- Primary Pneumonia, organism unspecified documented in this encounter Care Teams B2B Outside Sales Representative Relationship Specialty Start Date End Date Chad Das MD [address] [place] [address] PCP - General Internal Medicine 07/29/14 12/11/22 Ta Peng MD [address] [place] [address] PCP - General Internal Medicine 12/12/22 documented as of this encounter
--- OUTSIDE RECORDS SUMMARY | 2024-10-13 14:38 | XMS_ITS | Encounter Summary ---
Author Organization [facility] Address [address] [place] [address] Care Team Providers Care Trauma Nurse Name Role Phone Chad Das MD Primary Care Provider [phone] Ta Peng MD Primary Care Provider + Reason for Visit * Reason Onset Date Comments medication problems 09/16/2019 Encounter Details Date Type Department Care Team Description 09/16/2019 Telephone Adult Medicine [address] [address] Trena Funes PA medication problems Social History [...] EST Who is calling? A pharmacist: Pharmacy: [facility] Pharmacy Name of the medication methocarbamol (ROBAXIN) [...] on filedocumented in this encounter Care Teams Trauma Nurse Relationship Specialty Start Date End Date Chad Das MD [address] [place] [address] PCP - General Internal Medicine 07/29/14 12/11/22 Ta Peng MD [address] [place] [address] PCP - General Internal Medicine 12/12/22 documented as of this encounter
--- OUTSIDE RECORDS SUMMARY | 2024-10-13 14:38 | XMS_ITS | Encounter Summary ---
Author Organization [facility] Address [address] [place] [address] Care Team Providers Care Herb Counselor Name Role Phone Chad Das MD Primary Care Provider [phone] Ta Peng MD Primary Care Provider + Encounter Details Date Type Department Care Team Description 10/08/2019 Principle Software Engineer Report Medical Records [address] [place] [address] Rafael Busch MD Social History Tobacco Use [...] on filedocumented in this encounter Care Teams Herb Counselor Relationship Specialty Start Date End Date Chad Das MD [address] [place] [address] PCP - General Internal Medicine 07/29/14 12/11/22 Ta Peng MD [address] [place] [address] PCP - General Internal Medicine 12/12/22 documented as of this encounter
--- OUTSIDE RECORDS SUMMARY | 2024-10-13 14:38 | XMS_ITS | Encounter Summary ---
Author Organization [facility] Address [address] [place] [address] Care Team Providers Care Potash Flaker Name Role Phone Ta Peng MD Primary Care Provider + Encounter Details Date Type Department Care Team Description 07/11/2023 Housekeeping Supervisor Report Medical Records [address] [place] [address] Rafael Busch MD Social History Tobacco Use [...] on filedocumented in this encounter Care Teams Potash Flaker Relationship Specialty Start Date End Date Ta Peng MD [address] [place], [place] [phone] PCP - General Internal Medicine 12/12/22 documented as of this encounter
--- OUTSIDE RECORDS SUMMARY | 2024-10-13 14:38 | XMS_ITS | Encounter Summary ---
Author Organization [facility] Address [address] [place] [address] Care Team Providers Care Neonatal Surgeon Name Role Phone Chad Das MD Primary Care Provider [phone] Ta Peng MD Primary Care Provider + Reason for Visit * Reason Comments E-prescribe Rx Request Encounter Details Date Type Department Care Team Description 03/31/2019 Refill Adult Medicine [address] [address] Trena Funes PA E-prescribe Rx Request Social [...] an upcoming appointment? No-unable to reach left [facility] to call for appointment due to refill [...] N/A Patients current insurance carrier is: Payor: [employer] / Plan: [employer] / Product Type: MEDICAID RISK documented in this encounter Plan of Treatment Not on file documented as of this encounter Visit Diagnoses Diagnosis Breast pain Mastodynia Encounter for screening mammogram for malignant neoplasm of breast Other screening mammogram documented in this encounter Care Teams Neonatal Surgeon Relationship Specialty Start Date End Date Chad Das MD [address] [place] [address] PCP - General Internal Medicine 07/29/14 12/11/22 Ta Peng MD [address] [place] [address] PCP - General Internal Medicine 12/12/22 documented as of this encounter
--- OUTSIDE RECORDS SUMMARY | 2024-10-13 14:38 | XMS_ITS | Encounter Summary ---
Author Organization [facility] Address [address] [place] [address] Care Team Providers Care Stamping Press Operator Name Role Phone Chad Das MD Primary Care Provider [phone] Ta Peng MD Primary Care Provider + Encounter Details Date Type Department Care Team Description 04/01/2015 Refill Adult Medicine [address] [address] Jermain Georges PA-C Social History Tobacco Use [...] on filedocumented in this encounter Care Teams Stamping Press Operator Relationship Specialty Start Date End Date Chad Das MD [address] [place] [address] PCP - General Internal Medicine 07/29/14 12/11/22 Ta Peng MD [address] [place] [address] PCP - General Internal Medicine 12/12/22 documented as of this encounter
--- OUTSIDE RECORDS SUMMARY | 2024-10-13 14:38 | XMS_ITS | Encounter Summary ---
Author Organization [facility] Address [address] [place] [address] Care Team Providers Care Security Alarm Installer Name Role Phone Chad Das MD Primary Care Provider [phone] Ta Peng MD Primary Care Provider + Encounter Details Date Type Department Care Team Description 02/17/2020 Polisher Hand Report Medical Records [address] [place] [address] Rafael Busch MD Social History Tobacco Use [...] filedocumented in this encounter Care Teams Security Alarm Installer Relationship Specialty Start Date End Date Chad Das MD [address] [place] [address] PCP - General Internal Medicine 07/29/14 12/11/22 Ta Peng MD [address] [place] [address] PCP - General Internal Medicine 12/12/22 documented as of this encounter
--- OUTSIDE RECORDS SUMMARY | 2024-10-13 14:38 | XMS_ITS | Encounter Summary ---
Author Organization [facility] Address [address] [place] [address] Care Team Providers Care Ditching Machine Operating Engineer Name Role Phone Chad Das MD Primary Care Provider [phone] Ta Peng MD Primary Care Provider + Encounter Details Date Type Department Care Team Description 08/29/2015 Jira Administrator Report Medical Records [address] [place] [address] Social History Tobacco Use Types Packs/Day Years [...] on filedocumented in this encounter Care Teams Ditching Machine Operating Engineer Relationship Specialty Start Date End Date Chad Das MD [address] [place] [address] PCP - General Internal Medicine 07/29/14 12/11/22 Ta Peng MD [address] [place] [address] PCP - General Internal Medicine 12/12/22 documented as of this encounter
--- OUTSIDE RECORDS SUMMARY | 2024-10-13 14:38 | XMS_ITS | Encounter Summary ---
Author Organization [facility] Address [address] [place] [address] Care Team Providers Care Kindergartners Helper Name Role Phone Chad Das MD Primary Care Provider [phone] Ta Peng MD Primary Care Provider + Encounter Details Date Type Department Care Team Description 01/07/2018 Refill Pulmonology - [address] [place] [address] Nelson Mckeon MD Social History Tobacco Use [...] MG/3ML Solution [Nelson Mckeon MD] Preferred pharmacy: [id number] - [place] - [address] [facility] [address] [place] [address] Comment: documented in this encounter Plan of Treatment Not on file documented as of this encounter Visit Diagnoses Diagnosis Severe persistent asthma without complication documented in this encounter Care Teams Kindergartners Helper Relationship Specialty Start Date End Date Chad Das MD [address] [place] [address] PCP - General Internal Medicine 07/29/14 12/11/22 Ta Peng MD [address] [place] [address] PCP - General Internal Medicine 12/12/22 documented as of this encounter
--- OUTSIDE RECORDS SUMMARY | 2024-10-13 14:38 | XMS_ITS | Encounter Summary ---
Author Organization [facility] Address [address] [place] [address] Care Team Providers Care Web Producer Name Role Phone Chad Das MD Primary Care Provider [phone] Ta Peng MD Primary Care Provider + Encounter Details Date Type Department Care Team Description 12/21/2018 Refill Pulmonology [address] [place] [phone] Rafael Busch MD Social History Tobacco Use [...] asthma without complication Hypogammaglobulinemia (HCC) Hypogammaglobulinaemia, unspecified Asthma with acute exacerbation, unspecified asthma severity, unspecified whether persistent Tobacco abuse Tobacco use disorder Cigarette smoker Tobacco use disorder Abnormal chest CT Nonspecific (abnormal) findings on radiological and other examination of other intrathoracic organs documented in this encounter Care Teams Web Producer Relationship Specialty Start Date End Date Chad Das MD [address] [place] [address] PCP - General Internal Medicine 07/29/14 12/11/22 Ta Peng MD [address] [place] [address] PCP - General Internal Medicine 12/12/22 documented as of this encounter
--- OUTSIDE RECORDS SUMMARY | 2024-10-13 14:38 | XMS_ITS | Encounter Summary ---
Author Organization [facility] Address [address] [place] [address] Care Team Providers Care Database Management Specialist Name Role Phone Ta Peng MD Primary Care Provider + Reason for Visit * Reason Onset Date Comments Prior Authorization 08/19/2023 Encounter Details Date Type Department Care Team Description 08/19/2023 Telephone Endocrinology - [place] [address] [place] [address] Kathy Busch PA-C [address] [place] [address] Prior Authorization Social History Tobacco Use Types [...] pharm Breanna Baker Prior Auth Dep Ext [phone] * Telephone Encounter - Breanna Baker M.A. - 08/21/2023 12:25 PM EST Insurance wanted more info Faxed back Breanna Baker Prior Auth Dep Ext [phone] * Telephone Encounter - Breanna Baker M.A. [...] Is this a Cover My Meds request: [place] of Medication Ozempic Dose of Medication 4mg / 3ml What is the RX # from the faxed refill? [id number] How does patient take this med? injection What Pharmacy did the fax come from: [facility] Pharmacy fax #: [phone] documented in this encounter Plan of Treatment Not on file documented as of this encounter Visit Diagnoses Not on filedocumented in this encounter Care Teams Database Management Specialist Relationship Specialty Start Date End Date Ta Peng MD [address] [place] [address] PCP - General Internal Medicine 12/12/22 documented as of this encounter
--- OUTSIDE RECORDS SUMMARY | 2024-10-13 14:39 | XMS_ITS | Encounter Summary ---
Author Organization [facility] Address [address] [place] [address] Care Team Providers Care Hogshead Filler Name Role Phone Chad Das MD Primary Care Provider [phone] Ta Peng MD Primary Care Provider + Encounter Details Date Type Department Care Team Description 04/21/2019 Refill Pulmonology - [address] [place] [phone] Rafael Busch MD Social History Tobacco Use [...] encounter Miscellaneous Notes * Telephone Encounter - Aurora Felix M.A. - 04/23/2019 9:02 AM EDTFrom: Desi Dickens To: Rafael Busch MD Sent: 04/21/2019 6:26 PM EDT Subject: Medication Renewal Request Original authorizing provider: Rafael Busch MD Desi Dickens would like a refill of the following medications: Ipratropium-Albuterol 0.5-2.5 (3) MG/3ML Solution [Rafael Busch MD] Preferred pharmacy: [facility][id number] - [place], [place] - [address], [address] [facility] [address] Comment: Please include J code and diagnosis on prescription so my insurance will cover it. Thank you documented in this encounter Plan of Treatment Not on file documented as of this encounter Visit Diagnoses Not on filedocumented in this encounter Care Teams Hogshead Filler Relationship Specialty Start Date End Date Chad Das MD [address] [place] [address] PCP - General Internal Medicine 07/29/14 12/11/22 Ta Peng MD [address] [place] [address] PCP - General Internal Medicine 12/12/22 documented as of this encounter
--- OUTSIDE RECORDS SUMMARY | 2024-10-13 14:39 | XMS_ITS | Encounter Summary ---
Author Organization [facility] Address [address] [place] [address] Care Team Providers Care Drapery Hanger Name Role Phone Chad Das MD Primary Care Provider [phone] Ta Peng MD Primary Care Provider + Encounter Details Date Type Department Care Team Description 09/12/2022 Counselor Education Professor Report Medical Records [address] [place] [address] Jermain Castano MD Social History Tobacco Use [...] on filedocumented in this encounter Care Teams Drapery Hanger Relationship Specialty Start Date End Date Chad Das MD [address] [place] [address] PCP - General Internal Medicine 07/29/14 12/11/22 Ta Peng MD [address] [place] [address] PCP - General Internal Medicine 12/12/22 documented as of this encounter
--- OUTSIDE RECORDS SUMMARY | 2024-10-13 14:39 | XMS_ITS | Encounter Summary ---
Author Organization [facility] Address [address] [place] [address] Care Team Providers Care Mine Patrol Name Role Phone Chad Das MD Primary Care Provider [phone] Ta Peng MD Primary Care Provider + Encounter Details Date Type Department Care Team Description 12/28/2015 Nutrition Worker Report Medical Records [address] [place] [address] Bayron Cottrell MD Social History Tobacco Use Types Packs/Day Years Used Date Smoking Tobacco: Former Cigarettes 1 5 S tarted: 08/11/2009 Smokeless Tobacco: Never Comments:quit 09/2015 Alcohol Use Standard Drinks/Week Comments No 0 [...] on filedocumented in this encounter Care Teams Mine Patrol Relationship Specialty Start Date End Date Chad Das MD [address] [place] [address] PCP - General Internal Medicine 07/29/14 12/11/22 Ta Peng MD [address] [place] [address] PCP - General Internal Medicine 12/12/22 documented as of this encounter
--- OUTSIDE RECORDS SUMMARY | 2024-10-13 14:39 | XMS_ITS | Encounter Summary ---
Author Organization [facility] Address [address] [place] [address] Care Team Providers Care Electric Tape Slitter Name Role Phone Chad Das MD Primary Care Provider [phone] Ta Peng MD Primary Care Provider + Encounter Details Date Type Department Care Team Description 10/06/2018 Hospital Medical Records [address] [place] [address] Milena Champion MD [address] [place] [address] Social History Tobacco Use Types Packs/Day Years [...] on filedocumented in this encounter Care Teams Electric Tape Slitter Relationship Specialty Start Date End Date Chad Das MD [address] [place] [address] PCP - General Internal Medicine 07/29/14 12/11/22 Ta Peng MD [address] [place] [address] PCP - General Internal Medicine 12/12/22 documented as of this encounter
--- OUTSIDE RECORDS SUMMARY | 2024-10-13 14:39 | XMS_ITS | Encounter Summary ---
Author Organization [facility] Address [address] [place] [address] Care Team Providers Care Global Marketing Manager Name Role Phone Chad Das MD Primary Care Provider [phone] Ta Peng MD Primary Care Provider + Encounter Details Date Type Department Care Team Description 10/12/2018 Release of Information Medical Records [address] [place] [address] Abstract, Provider Social History Tobacco Use Types [...] on filedocumented in this encounter Care Teams Global Marketing Manager Relationship Specialty Start Date End Date Chad Das MD [address] [place] [address] PCP - General Internal Medicine 07/29/14 12/11/22 Ta Peng MD [address] [place] [address] PCP - General Internal Medicine 12/12/22 documented as of this encounter
--- OUTSIDE RECORDS SUMMARY | 2024-10-13 14:39 | XMS_ITS | Encounter Summary ---
Author Organization [facility] Address [address] [place] [address] Care Team Providers Care Gasateria Attendant Name Role Phone Chad Das MD Primary Care Provider [phone] Ta Peng MD Primary Care Provider + Encounter Details Date Type Department Care Team Description 02/06/2021 Saw Superintendent Report Medical Records [address] [place] [address] Rafael Busch MD Social History Tobacco Use [...] on filedocumented in this encounter Care Teams Gasateria Attendant Relationship Specialty Start Date End Date Chad Das MD [address] [place] [address] PCP - General Internal Medicine 07/29/14 12/11/22 Ta Peng MD [address] [place] [address] PCP - General Internal Medicine 12/12/22 documented as of this encounter
--- OUTSIDE RECORDS SUMMARY | 2024-10-13 14:39 | XMS_ITS | Encounter Summary ---
Author Organization [facility] Address [address] [place] [address] Care Team Providers Care Bench Boring Machine Operator Name Role Phone Chad Das MD Primary Care Provider [phone] Ta Peng MD Primary Care Provider + Reason for Visit * Reason Comments E-prescribe Rx Request Encounter Details Date Type Department Care Team Description 04/10/2017 Refill Adult Medicine [address] [address] Jermain Georges PA-C E-prescribe Rx Request Social [...] NO Patients current insurance carrier is: Payor: [employer] / Plan: [employer] $0 SIMEON [id number] / Product Type: MEDICAID [id number] documented in this encounter Plan of Treatment Not on file documented as of this encounter Visit Diagnoses Diagnosis Cervical paraspinal muscle spasm Spasm of muscle documented in this encounter Care Teams Bench Boring Machine Operator Relationship Specialty Start Date End Date Chad Das MD [address] [place] [address] PCP - General Internal Medicine 07/29/14 12/11/22 Ta Peng MD [address] [place] [address] PCP - General Internal Medicine 12/12/22 documented as of this encounter
--- OUTSIDE RECORDS SUMMARY | 2024-10-13 14:39 | XMS_ITS | Encounter Summary ---
Author Organization [facility] Address [address] [place] [address] Care Team Providers Care Jersey Knitter Name Role Phone Chad Das MD Primary Care Provider [phone] Ta Peng MD Primary Care Provider + Reason for Visit * Reason Onset Date Comments Error 03/23/2018 Encounter Details Date Type Department Care Team Description 03/23/2018 Refill Adult Medicine [address] [address] Chad Das MD [address] [place] [address] [phone] Error Social History Tobacco Use Types Packs/Day Years [...] on filedocumented in this encounter Care Teams Jersey Knitter Relationship Specialty Start Date End Date Chad Das MD [address] [place] [address] [phone] PCP - General Internal Medicine 07/29/14 12/11/22 Ta Peng MD [address] [place] [address] PCP - General Internal Medicine 12/12/22 documented as of this encounter
--- OUTSIDE RECORDS SUMMARY | 2024-10-13 14:39 | XMS_ITS | Encounter Summary ---
Author Organization [facility] Address [address] [place] [address] Care Team Providers Care Pathology Specialist Name Role Phone Chad Das MD Primary Care Provider [phone] Ta Peng MD Primary Care Provider + Reason for Referral * EXTERNAL (Routine) - Authorized/Booked Specialty Diagnoses / Procedures Referred By Stella steel Referred To Contact Thoracic Surgery / Thoracic Surgeon Procedures REFERRAL TO THORACIC SURGEON Rafael Busch MD [address] [place] [phone] Jamar Carrillo [address] [place] [address] Referral ID Status Reason Start Date Expiration Date V isits Requested Visits Authorized SEE NOTE Authorized/B ooked 08/31/2018 11/29/2018 1 1 Encounter Details Date Type Department Care Team Description 08/31/2018 Orders Only Pulmonology - [place] [facility] [address] [place] [phone] Rafael Busch MD Pneumonitis (Primary Dx) [...] unspecified documented in this encounter Care Teams Pathology Specialist Relationship Specialty Start Date End Date Chad Das MD [address] [place] [phone] PCP - General Internal Medicine 07/29/14 12/11/22 Ta Peng MD [address] [place] [address] PCP - General Internal Medicine 12/12/22 documented as of this encounter
--- OUTSIDE RECORDS SUMMARY | 2024-10-13 14:39 | XMS_ITS | Encounter Summary ---
Author Organization [facility] Address [address] [place] [address] Care Team Providers Care Fork Operator Name Role Phone Chad Das MD Primary Care Provider [phone] Ta Peng MD Primary Care Provider + Reason for Visit * Reason Comments E-prescribe Rx Request Encounter Details Date Type Department Care Team Description 04/20/2019 Refill OBGYN - [place] [address] [place] [address] Adrian Boyer MD [address] [place] [address] E-prescribe Rx Request Social History Tobacco Use [...] encounter Miscellaneous Notes * Telephone Encounter - Marietta Mckeon - 04/21/2019 10:22 AM EDT Please consider refill pt needs to schedule annual * Telephone Encounter - Sara Parsons - 04/20/2019 4:55 PM EDT WHEN WAS THE PATIENTS LAST ANNUAL ARSON INVESTIGATOR EXAM?05/01/18 Does patient have an upcoming appointment? No (THE MEDICATION REQUESTED IS ON THE MED LIST ABOVE) Did you check the Pharmacy information above?: YES Indicate how soon the patient needs the script: HARPREET Patient would like script to be: E-PRESCRIBED/FAXED TO PHARMACY Is the doctor here today?: NO Can the message wait until the doctor returns?: NO Has the patient been told that the prescription will not be filled until the end of the day? NO Payor: WORKERS COMP / Plan: WORKERS COMPENSATION/[place] / Product Type: OTHER documented in this encounter Plan of Treatment Not on file documented as of this encounter Visit Diagnoses Diagnosis Encounter for gynecological examination without abnormal finding Routine gynecological examination documented in this encounter Care Teams Fork Operator Relationship Specialty Start Date End Date Chad Das MD [address] [place] [address] PCP - General Internal Medicine 07/29/14 12/11/22 Ta Peng MD [address] [place] [address] PCP - General Internal Medicine 12/12/22 documented as of this encounter
--- OUTSIDE RECORDS SUMMARY | 2024-10-13 14:39 | XMS_ITS | Encounter Summary ---
Author Organization [facility] Address [address] [place] [address] Care Team Providers Care Scruff Worker Name Role Phone Chad Das MD Primary Care Provider [phone] Ta Peng MD Primary Care Provider + Encounter Details Date Type Department Care Team Description 07/08/2016 Pt. Non Urgent Medic al Question Adult Medicine [address] [address] Jermain Georges PA-C Social History Tobacco Use [...] Progress Notes * Samina Caro M.A. - 07/08/2016 9:00 AM ESTFrom: Desirichard Dickens To: Jermain Georges PA-C Sent: 07/08/2016 8:48 AM EST Subject: Oops My boyfriend and I had a condom break on Friday. I had not taken my Bactrim antibiotic at all Friday and only one pill on Friday. I went and got the morning after pill. My question is, will the antibiotic cancel out the morning after pill? documented in this encounter Plan of Treatment Not on file documented as of this encounter Visit Diagnoses Not on filedocumented in this encounter Care Teams Scruff Worker Relationship Specialty Start Date End Date Chad Das MD [address] [place] [address] PCP - General Internal Medicine 07/29/14 12/11/22 Ta Peng MD [address] [place] [address] PCP - General Internal Medicine 12/12/22 documented as of this encounter
--- OUTSIDE RECORDS SUMMARY | 2024-10-13 14:39 | XMS_ITS | Encounter Summary ---
Author Organization [facility] Address [address] [place] [address] Care Team Providers Care Medical Instructor Name Role Phone Chad Das MD Primary Care Provider [phone] Ta Peng MD Primary Care Provider + Encounter Details Date Type Department Care Team Description 07/17/2017 Release of Information Medical Records [address] [place] [address] Abstract, Provider Social History Tobacco Use Types [...] on filedocumented in this encounter Care Teams Medical Instructor Relationship Specialty Start Date End Date Chad Das MD [address] [place] [address] PCP - General Internal Medicine 07/29/14 12/11/22 Ta Peng MD [address] [place] [address] PCP - General Internal Medicine 12/12/22 documented as of this encounter
--- OUTSIDE RECORDS SUMMARY | 2024-10-13 14:39 | XMS_ITS | Clinical Summary ---
Author Organization [address] Address [address] [place] [address] Phone Care Team Providers Care Database Marketing Specialist Name Role Phone Ta Peng MD [...] Prediabetes 12/17/2022 Bipolar disorder 12/12/2022 Overview (07/13/2024): 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 (07/13/2024): Follows [facility] Pulm Follows with [facility] on 6 [...] W/WEDGE RESECT; COMMENT: Wedge resection CHOLECYSTECTOMY PROCEDURE: RI LAPAROSCOPY SURG CHOLECYSTECTOMY Medical History Medical History [...] 12/30/2024 2:20 PM EDT Appointment Radiology Department [address] [phone] Health Maintenance Due Date Last Done Comments [...] Cancer Screening: HPV (04/30/2023) Pathologist [facility] Cervical Cancer Screening: HPV abstracted, negative Historical Provider HEALTH MAINTENANCE Final Result * Lipid panel (12/13/2022) [facility] Triglycerides 135 0 - 150 mg/dL Cholesterol 151 0 - 200 mg/dL HDL 50 mg/dL Blood Venous blood specimen / Unknown Historical Provider LAB BLOOD ORDERABLES Rossy l Result * Hepatitis C Screening (05/01/2018) Pathologist [facility] Hepatitis C Screening abstracted us Historical Provider HEALTH MAINTENANCE Final Result from Last 3 Months or Most Recently Relevant to Health Maintenance Care Teams Database Marketing Specialist Relationship Specialty Start Date End Date Ta Peng MD PCP - General 12/12/22
--- OUTSIDE RECORDS SUMMARY | 2024-10-13 14:39 | XMS_ITS | Encounter Summary ---
Author Organization [facility] Address [address] [place] [address] Care Team Providers Care Environmental Sampling Technician Name Role Phone Taye Mi Primary Care Provider Ramila Chad Driscoll MD Primary Care Provider [phone] Ta Peng MD Primary Care Provider + Encounter Details Date Type Department Care Team Description 02/09/2013 Release of Information Medical Records [address] [place] [address] Abstract, Provider Social History Tobacco Use Types Packs/Day Years Used Date Smoking Tobacco: Every Day Cigarettes 0.5 Smokeless Tobacco: Never Alcohol Use Standard Drinks/Week [...] on filedocumented in this encounter Care Teams Environmental Sampling Technician Relationship Specialty Start Date End Date Taye Mi PCP - General Internal Medicine 01/18/13 07/28/14 Chad Das MD [address] [place] [address] PCP - General Internal Medicine 07/29/14 12/11/22 Ta Peng MD [address] [place] [address] PCP - General Internal Medicine 12/12/22 documented as of this encounter
--- OUTSIDE RECORDS SUMMARY | 2024-10-13 14:39 | XMS_ITS | Encounter Summary ---
Author Organization [facility] Address [address] [place] [address] Care Team Providers Care Dewatering Filtering Supervisor Name Role Phone Chad Das MD Primary Care Provider [phone] Ta Peng MD Primary Care Provider + Encounter Details Date Type Department Care Team Description 07/03/2018 Refill Adult Medicine [address] [address] Kota Louise PA-C [address] [place] [address] [phone] Social History Tobacco Use Types Packs/Day Years [...] exacerbation documented in this encounter Care Teams Dewatering Filtering Supervisor Relationship Specialty Start Date End Date Chad Das MD [address] [place] [address] PCP - General Internal Medicine 07/29/14 12/11/22 Ta Peng MD [address] [place] [address] PCP - General Internal Medicine 12/12/22 documented as of this encounter
--- OUTSIDE RECORDS SUMMARY | 2024-10-13 14:39 | XMS_ITS | Encounter Summary ---
Author Organization [facility] Address [address] [place] [address] Care Team Providers Care Independent Film Maker Name Role Phone Chad Das MD Primary Care Provider [phone] Ta Peng MD Primary Care Provider + Encounter Details Date Type Department Care Team Description 05/07/2017 Night Triage Doc Medical Records [address] [place] [address] Abstract, Provider Social History Tobacco Use Types [...] on filedocumented in this encounter Care Teams Independent Film Maker Relationship Specialty Start Date End Date Chad Das MD [address] [place] [address] PCP - General Internal Medicine 07/29/14 12/11/22 Ta Peng MD [address] [place] [address] PCP - General Internal Medicine 12/12/22 documented as of this encounter
--- OUTSIDE RECORDS SUMMARY | 2024-10-13 14:39 | XMS_ITS | Encounter Summary ---
Author Organization [facility] Address [address] [place] [address] Care Team Providers Care Electrical Instrument Maker Name Role Phone Chad Das MD Primary Care Provider [phone] Ta Peng MD Primary Care Provider + Reason for Visit * Reason Onset Date Comments Prior Authorization 06/09/2018 Daliresp Encounter Details Date Type Department Care Team Description 06/09/2018 Telephone Pulmonology - [address] [place] [address] Rafael Busch MD Prior Authorization [...] mcg tablet, approved from 06/10/2018-06/10/2020 Authorization # [id number] Pharmacy notified * Telephone Encounter - Pooja [...] Inhale ??into the lungs. - Inhalation Tiotropium [place] Monohydrate (SPIRIVA RESPIMAT) 1.25 MCG/ACT Aero Soln [...] What Pharmacy did the fax come from: [facility] pharmacy - [address] [place] [address] Pharmacy fax #: [phone] [employer] Information from fax: What Prescription Plan does the patient have? BIN/PCN if applicable: Cardholder ID: Person Code: Relationship Code: Help desk phone: documented in this encounter Plan of Treatment Not on file documented as of this encounter Visit Diagnoses Not on filedocumented in this encounter Care Teams Electrical Instrument Maker Relationship Specialty Start Date End Date Chad Das MD [address] [place] [address] PCP - General Internal Medicine 07/29/14 12/11/22 Ta Peng MD [address] [place] [address] PCP - General Internal Medicine 12/12/22 documented as of this encounter
--- OUTSIDE RECORDS SUMMARY | 2024-10-13 14:39 | XMS_ITS | Encounter Summary ---
Author Organization [facility] Address [address] [place] [address] Care Team Providers Care Ladle Puller Name Role Phone Chad Das MD Primary Care Provider [phone] Ta Peng MD Primary Care Provider + Encounter Details Date Type Department Care Team Description 04/03/2021 Wearing Apparel Presser Report Medical Records [address] [place] [address] Rafael Busch MD Social History Tobacco Use [...] on filedocumented in this encounter Care Teams Ladle Puller Relationship Specialty Start Date End Date Chad Das MD [address] [place] [address] PCP - General Internal Medicine 07/29/14 12/11/22 Ta Peng MD [address] [place] [address] PCP - General Internal Medicine 12/12/22 documented as of this encounter
--- OUTSIDE RECORDS SUMMARY | 2024-10-13 14:39 | XMS_ITS | Encounter Summary ---
Author Organization [facility] Address [address] [place] [address] Care Team Providers Care Blood Bank Credit Clerk Name Role Phone Chad Das MD Primary Care Provider [phone] Ta Peng MD Primary Care Provider + Encounter Details Date Type Department Care Team Description 09/02/2018 Boiler Reliner Report Medical Records [address] [place] [address] Milena Champion MD [address] [place] [address] Social History Tobacco Use Types Packs/Day Years [...] on filedocumented in this encounter Care Teams Blood Bank Credit Clerk Relationship Specialty Start Date End Date Chad Das MD [address] [place] [address] PCP - General Internal Medicine 07/29/14 12/11/22 Ta Peng MD [address] [place] [address] [phone] PCP - General Internal Medicine 12/12/22 documented as of this encounter
--- OUTSIDE RECORDS SUMMARY | 2024-10-13 14:39 | XMS_ITS | Encounter Summary ---
Author Organization [facility] Address [address] [place] [address] Care Team Providers Care Garbage Collector Driver Name Role Phone Chad Das MD Primary Care Provider [phone] Ta Peng MD Primary Care Provider + Encounter Details Date Type Department Care Team Description 03/12/2022 Umbrella Mender Report Medical Records [address] [place] [address] Jermain Castano MD Social History Tobacco Use [...] on filedocumented in this encounter Care Teams Garbage Collector Driver Relationship Specialty Start Date End Date Chad Das MD [address] [place] [address] PCP - General Internal Medicine 07/29/14 12/11/22 Ta Peng MD [address] [place] [address] PCP - General Internal Medicine 12/12/22 documented as of this encounter
--- OUTSIDE RECORDS SUMMARY | 2024-10-13 14:39 | XMS_ITS | Encounter Summary ---
Author Organization [facility] Address [address] [place] [address] Care Team Providers Care Supervisor Furnace Room Name Role Phone Chad Das MD Primary Care Provider [phone] Ta Peng MD Primary Care Provider + Encounter Details Date Type Department Care Team Description 07/21/2018 Spiritual Care Coordinator Report Medical Records [address] [place] [address] Jermain Castano MD Social History Tobacco Use [...] on filedocumented in this encounter Care Teams Supervisor Furnace Room Relationship Specialty Start Date End Date Chad Das MD [address] [place] [address] PCP - General Internal Medicine 07/29/14 12/11/22 Ta Peng MD [address] [place] [address] PCP - General Internal Medicine 12/12/22 documented as of this encounter
--- OUTSIDE RECORDS SUMMARY | 2024-10-13 14:39 | XMS_ITS | Encounter Summary ---
Author Organization [facility] Address [address] [place] [address] Care Team Providers Care Tailercpa Name Role Phone Ta Peng MD Primary Care Provider + Reason for Visit * Reason Onset Date Comments medication problems 12/13/2022 Encounter Details Date Type Department Care Team Description 12/13/2022 Telephone Endocrinology - [address] [address] Kathy Busch PA-C [address] [place] [address] medication problems Social History Tobacco Use Types Packs/Day Years Used Date Smoking Tobacco: Every Day Cigarettes Smokeless Tobacco: Never Comments:Started age 29; max 2 PPDs; 12/12/22, / PPD Alcohol Use Standard Drinks/Week Comments Not [...] on filedocumented in this encounter Care Teams Tailercpa Relationship Specialty Start Date End Date Ta Peng MD [address] [place] [address] PCP - General Internal Medicine 12/12/22 documented as of this encounter
--- OUTSIDE RECORDS SUMMARY | 2024-10-13 14:39 | XMS_ITS | Encounter Summary ---
Author Organization [facility] Address [address] [place] [address] Care Team Providers Care Sieve Grader Tender Name Role Phone Chad Das MD Primary Care Provider [phone] Ta Peng MD Primary Care Provider + Encounter Details Date Type Department Care Team Description 01/22/2021 Customer Service Correspondence Clerk Report Medical Records [address] [place] [address] Rafael Busch MD Social History Tobacco Use [...] on filedocumented in this encounter Care Teams Sieve Grader Tender Relationship Specialty Start Date End Date Chad Das MD [address] [place] [address] PCP - General Internal Medicine 07/29/14 12/11/22 Ta Peng MD [address] [place] [address] PCP - General Internal Medicine 12/12/22 documented as of this encounter
--- OUTSIDE RECORDS SUMMARY | 2024-10-13 14:39 | XMS_ITS | Encounter Summary ---
Author Organization [facility] Address [address] [place] [address] Care Team Providers Care Customer Service Sales Associate Name Role Phone Chad Das MD Primary Care Provider [phone] Ta Peng MD Primary Care Provider + Reason for Visit * Reason Onset Date Comments medication problems 06/02/2018 Prior Authorization 06/02/2018 Encounter Details Date Type Department Care Team Description 06/02/2018 Telephone Pulmonology - [address] [place] [phone] Rafael Busch MD medication problems; Prior Authorization Social History Tobacco Use Types [...] encounter Miscellaneous Notes * Telephone Encounter - Rafael Busch MD - 06/08/2018 5:11 PM EDT Ok will send for qvar * Telephone Encounter - Jessica Lewis M.A. - 06/03/2018 8:26 AM EDT Symbicort 160-4.5mg is not covered by the patients insurance. Patient must use 1 oral inhaled corticosteroid within the past 120 days-such as Asmanex, Qvar, Pulmicort, or Flovent (which patient did try in 2014 and was ineffective). Please advise, Jessica Cole Prior Authorization Dept Ext [phone] Fax [phone] * Telephone Encounter - Edith Olvera - 06/02/2018 2:31 PM EDT Pre Authorization for Medication-do not complete and send this encounter unless you have the fax from the pharmacy. Is this a Cover My Meds request: [place] of Medication budesonide-formoterol (SYMBICORT) 160-4.5 MCG/ACT inhaler Dose of Medication 160-4.5mcg/act inhaler What is the RX # from the faxed refill? How does patient take this med? What Pharmacy did the fax come from: Pharmacy fax #: [facility] Information from fax: What Prescription Plan does the patient have? BIN/PCN if applicable: Cardholder ID:[id number] Person Code: Relationship Code: Help desk phone: documented in this encounter Plan of Treatment Not on file documented as of this encounter Visit Diagnoses Not on filedocumented in this encounter Care Teams Customer Service Sales Associate Relationship Specialty Start Date End Date Chad Das MD [address] [place] [address] PCP - General Internal Medicine 07/29/14 12/11/22 Ta Peng MD [address] [place] [address] PCP - General Internal Medicine 12/12/22 documented as of this encounter
--- OUTSIDE RECORDS SUMMARY | 2024-10-13 14:39 | XMS_ITS | Encounter Summary ---
Author Organization [facility] Address [address] [place] [address] Care Team Providers Care Fire Fighter Name Role Phone Chad Das MD Primary Care Provider [phone] Ta Peng MD Primary Care Provider + Reason for Visit * Reason Comments E-prescribe Rx Request Encounter Details Date Type Department Care Team Description 03/10/2018 Refill Pulmonology - [address] [place] [phone] Rafael Busch MD E-prescribe Rx Request Social [...] NO Patients current insurance carrier is: Payor: [employer] FFS / Plan: [employer] / Product Type: MEDICAID RISK documented in this encounter Plan of Treatment Not on file documented as of this encounter Visit Diagnoses Not on filedocumented in this encounter Care Teams Fire Fighter Relationship Specialty Start Date End Date Chad Das MD [address] [place] [address] PCP - General Internal Medicine 07/29/14 12/11/22 Ta Peng MD [address] [place] [address] PCP - General Internal Medicine 12/12/22 documented as of this encounter
--- OUTSIDE RECORDS SUMMARY | 2024-10-13 14:39 | XMS_ITS | Encounter Summary ---
Author Organization [facility] Address [address] [place] [address] Care Team Providers Care Credit Administrator Name Role Phone Chad Das MD Primary Care Provider [phone] Ta Peng MD Primary Care Provider + Encounter Details Date Type Department Care Team Description 05/20/2018 Release of Information Medical Records [address] [place] [address] Abstract, Provider Social History Tobacco Use Types [...] on filedocumented in this encounter Care Teams Credit Administrator Relationship Specialty Start Date End Date Chad Das MD [address] [place] [address] PCP - General Internal Medicine 07/29/14 12/11/22 Ta Peng MD [address] [place] [address] PCP - General Internal Medicine 12/12/22 documented as of this encounter
--- OUTSIDE RECORDS SUMMARY | 2024-10-13 14:39 | XMS_ITS | Encounter Summary ---
Author Organization [facility] Address [address] [place] [address] Care Team Providers Care Deckhand Oyster Dredge Name Role Phone Chad Das MD Primary Care Provider [phone] Ta Peng MD Primary Care Provider + Encounter Details Date Type Department Care Team Description 05/24/2016 Pt. Non Urgent Medic al Question Adult Medicine [address] [address] Jermain Georges PA-C Social History Tobacco Use [...] Progress Notes * Samina Caro M.A. - 05/24/2016 9:51 AM EDTFrom: Desi Dickens To: Jermain Georges PA-C Sent: 05/24/2016 9:50 AM EDT Subject: Pneumonia I was in emergency room Friday night. I was coughing so hard, there was blood in my phlegm. I signed myself out after an IV of antibiotics. I am currently taking Levaquin prescribed at the emergency room at [facility]. I was diagnosed with Pneumonia. I am in need of a work note to cover my Friday and Friday shifts at work. documented in this encounter Plan of Treatment Not on file documented as of this encounter Visit Diagnoses Not on filedocumented in this encounter Care Teams Deckhand Oyster Dredge Relationship Specialty Start Date End Date Chad Das MD [address] [place] [address] PCP - General Internal Medicine 07/29/14 12/11/22 Ta Peng MD [address] [place] [address] PCP - General Internal Medicine 12/12/22 documented as of this encounter
--- OUTSIDE RECORDS SUMMARY | 2024-10-13 14:39 | XMS_ITS | Encounter Summary ---
Author Organization [facility] Address [address] [place] [address] Care Team Providers Care Hoist Mechanic Name Role Phone Ta Peng MD Primary Care Provider + Encounter Details Date Type Department Care Team Description 12/31/2022 Maintenance Manager Report Medical Records [address] [place] [address] Rafael Busch MD Social History Tobacco Use [...] Recorded In the last 10 days, have kj u been in contact with someone who was confirmed or suspected to have Coronavirus/COVID-19? No / Unsure 12/17/2022 2:43 PM EDT documented as of this encounter Plan of Treatment Not on file documented as of this encounter Visit Diagnoses Not on filedocumented in this encounter Care Teams Hoist Mechanic Relationship Specialty Start Date End Date Ta Peng MD [address] [place], [place] [id number] PCP - General Internal Medicine 12/12/22 documented as of this encounter
--- OUTSIDE RECORDS SUMMARY | 2024-10-13 14:39 | XMS_ITS | Encounter Summary ---
Author Organization [facility] Address [address] [place] [address] Care Team Providers Care Second Grade Teacher Name Role Phone Chad Das MD Primary Care Provider [phone] Ta Peng MD Primary Care Provider + Reason for Visit * Reason Comments E-prescribe Rx Request Encounter Details Date Type Department Care Team Description 09/04/2018 Refill Pulmonology - [place] [address] [facility] [address] [place] [id number] Suman Duron PA-C [address] [facility] [address] [place] [address] E-prescribe Rx Request Social History [...] Miscellaneous Notes * Telephone Encounter - Suman Duron PA-C - 09/07/2018 5:41 PM EST Placing pt on lower dose of prednisone 10 mg PO daily * Telephone Encounter - Ade Tirado - 09/04/2018 8:31 AM EST Patient would like script to be: E-PRESCRIBED/FAXED TO PHARMACY WHEN WAS THE PATIENT'S LAST APPOINTMENT WITH THE PRESCRIBING PROVIDER? 08/25/18 Does patient have an upcoming appointment? Yes 09/08/18 (THE MEDICATION REQUESTED IS ON THE MED LIST ABOVE) All of the medications requested were on the CURRENT MEDS list Did you check the Pharmacy information above?: YES Patient wants: 30 -day supply Is this a mail order prescription request ? NO Patients current insurance carrier is: Payor: [employer] FFS / Plan: [employer] / Product Type: MEDICAID RISK documented in this encounter Plan of Treatment Not on file documented as of this encounter Visit Diagnoses Diagnosis Severe persistent asthma with acute exacerbation Unspecified asthma, with exacerbation Hypogammaglobulinemia (HCC) Hypogammaglobulinaemia, unspecified Severe persistent asthma, unspecified whether complicated Idiopathic pulmonary hemosiderosis (HCC) Pneumonitis Pneumonia, organism unspecified Cigarette smoker Tobacco use disorder documented in this encounter Care Teams Second Grade Teacher Relationship Specialty Start Date End Date Chad Das MD [address] [place] [id number] PCP - General Internal Medicine 07/29/14 12/11/22 Ta Peng MD [address] [place] [id number] PCP - General Internal Medicine 12/12/22 documented as of this encounter
--- OUTSIDE RECORDS SUMMARY | 2024-10-13 14:39 | XMS_ITS | Encounter Summary ---
Author Organization [facility] Address [address] [place] [address] Care Team Providers Care Tractor Expert Name Role Phone Chad Das MD Primary Care Provider Ta Peng MD Primary Care Provider + Encounter Details Date Type Department Care Team Description 06/13/2021 Pan Shaker Report Medical Records [address] [place] [id number] Jermain Castano MD Social History Tobacco Use [...] on filedocumented in this encounter Care Teams Tractor Expert Relationship Specialty Start Date End Date Chad Das MD [address] [place] [id number] PCP - General Internal Medicine 07/29/14 12/11/22 Ta Peng MD [address] [place] [id number] PCP - General Internal Medicine 12/12/22 documented as of this encounter
--- OUTSIDE RECORDS SUMMARY | 2024-10-13 14:39 | XMS_ITS | Encounter Summary ---
Author Organization [facility] Address [address] [place] [address] Care Team Providers Care Cue Worker Name Role Phone Chad Das MD Primary Care Provider [phone] Ta Peng MD Primary Care Provider + Encounter Details Date Type Department Care Team Description 12/25/2020 [employer]ity Prospector Report Medical Records [address] [place] [id number] Rafael Busch MD Social History Tobacco Use [...] on filedocumented in this encounter Care Teams Cue Worker Relationship Specialty Start Date End Date Chad Das MD [address] [place] [id number] PCP - General Internal Medicine 07/29/14 12/11/22 Ta Peng MD [address] [place] [id number] PCP - General Internal Medicine 12/12/22 documented as of this encounter
== END 2024-10-13 12:52 | disposition home or self-care (01) ==
PROVIDERS: PCP Pediatrics; Visit Provider Internal Medicine
DX: K52.9 Noninfective gastroenteritis and colitis, unspecified (principal); D80.1 Nonfamilial hypogammaglobulinemia
CPT/HCPCS: 99213

== ENCOUNTER → 2024-10-13 12:15 | Outpatient (BNVA) | payer OTHER, SELFPAY | PROVIDERS: PCP Pediatrics; Visit Provider Internal Medicine | DX: K52.9 Noninfective gastroenteritis and colitis, unspecified (principal); D80.1 Nonfamilial hypogammaglobulinemia | CPT/HCPCS: 99212 ==

== ENCOUNTER 2025-06-30 08:45 | Outpatient (AMB) | payer OTHER, SELFPAY ==
--- NOTE | 2025-06-30 08:46 | MHC.OFFVIS ---
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 01/02/2023 the patient is here for pulmonary follow-up visit. The patient is doing very well. She is cutting down the prednisone down to 9 mg daily. She continues use her Trelegy with very good effect. She is also on Daliresp. Recently she was placed on Ozempic. She has lost about 13 lb. She also continues on the Imuran 150 mg daily. Her breathing significantly better. Chest not required her rescue inhaler and has not required any additional prednisone. Depression Ronnie office also significantly better. Unfortunately she is still smoking. She is trying to quit although is very hard. We did review her pulmonary function studies that she had back in the winter of 2022 which demonstrated interval improvement in lung capacity which is reassuring. She was supposed to start pulmonary rehab but she is not able to at this time. I am hopeful that she can start pulmonary rehab soon. I do believe pulmonary rehab will be very affecting beneficial for the patient continues to get her IgG infusions. Will go ahead and check her blood work at this time. She is concerned about her COVID antibodies. She has not been vaccinated for COVID. 07/11/2023 the patient is here for a pulmonary follow-up visit. The patient overall has been doing better from a respiratory status. Unfortunately, she did develop pancreatitis and was admitted to the hospital briefly. Was felt to be drug-induced. The 2 potential culprits include the azathioprine and also the Daliresp. She stopped both. Her symptoms have been improving significantly. The patient has been able to be okay without the medications which is reassuring. She is also cutting down significantly on the smoking which is also helping the fact that she can come off the medicine. The patient also continues to be on 10 mg of prednisone. When she cut smoking further she is going to try cutting down slowly down to 7.5 mg daily she continues her respiratory therapy with good effect. Otherwise patient is without any other complaints. 01/15/2024 the patient is here for a pulmonary follow-up visit. Overall the patient has been doing extremely well. She has been able to be off Imuran without any worsening symptoms. She has also off the Daliresp. Her GI tract is better overall. In addition to that she has been on 10 mg of prednisone only which is reassuring. She did undergo an endoscopy and she was found to have some gastric ulcers or peptic ulcers. Report. Therefore, will go ahead and try to decrease the prednisone some. Specially since she is doing well but we wanted decrease it to quickly. She is going to alternate 10 mg and 7.5 mg daily for a month and then she can just take some 0.5 mg daily. She should continue with a 7.5 mg does unless she feels she can decrease it further she can always call and I can send 1 mg tablets. As far as inhaler she continues use the Trelegy did lead. And smoking she is working closely with smoking cessation smoking significantly less. Although she is still smoking some. She continues with the IVIG infusions which have been affecting beneficial. Otherwise patient is without any other complaints. 10/12/2024 the patient is here for a pulmonary follow-up visit. Overall she is doing very well from a respiratory status. She has been able to wean off completely from the prednisone. In addition to that she is stopping doxycycline. GI symptoms have improved. She continues use her respiratory therapy as prescribed. The patient unfortunately continues to smoke cigarettes. She has been very stressed because of her home situation. But, she needs to quit because she understands that she has significant disease due to the cigarettes. Initially when she came in the patient was noted to be significantly tachycardic up to 150 beats per minute in the when she settled down she was still about 136 beats per minute. Denies any shortness of breath denied any palpitations. Does not really feel it. Therefore, will send her for an EKG and also blood work. Also did review the EKG demonstrating sinus tachycardia but 109 beats per minute which is significantly decreased. 06/30/2025 the patient is here for pulmonary follow-up visit. Overall the patient is doing very well. She has been off prednisone now for couple years. She has also been off immunosuppressant therapy which is also extremely reassuring. She continues on her IgG infusions. The patient did follow-up with GI and they have been helping her with the diarrhea that she is very happy with. The patient has continued to use her inhalers with good response. Denies any shortness of breath. She unfortunately she continues to smoke although she cut down significantly down to half a pack. She has been taking care of her mom so she has not have a lot of time. She is going to continue to cut down and try to break that positive feedback mechanism with a smoking. We did review her imaging studies. The patient is last chest x-ray was back in 2021. Will have her repeat an x-ray before the next visit. She does not have a flu shot but she is wearing a mask. The patient will find out about her pneumonia vaccine which I believe she got a couple years ago. She will follow-up in 6 months if she has not issues prior to that she can always call for further recommendations. 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 Tobacco dependence Asthma-COPD overlap syndrome Cough Hypogammaglobulinemia ILD (interstitial lung disease) Asthma Surgical History Hx of cholecystectomy Family History Family/Other No family history of colorectal cancer Social History Patient Tobacco Use Status: Current everyday Tobacco user Tobacco use type: Cigarette Cigarette Packs Per Day: 0.5 Cigarettes Per Day: 10.0 Years Smoked: 20 years Review of Systems Const Denies night sweats ENT Denies change in voice, Denies lip swelling, Denies mouth pain, Reports nasal congestion, Reports nasal discharge and Denies tongue swelling Card Denies chest pain, Denies dyspnea and Reports dyspnea on exertion Resp Denies chest congestion, Reports cough, Denies dyspnea, Reports dyspnea on exertion and Denies wheezing GI Denies abdominal pain Musc Denies no additional complaints Neuro Denies Neuro-related abnormal movements Psych Denies no additional complaints Leroy/Lymph Denies easy bleeding and Denies lymphadenopathy Aller/Immun Denies lip swelling, Denies tongue swelling and Denies wheezing Physical Exam Vital Signs: Last Vital Signs Pulse 118 H 06/30/25 08:47 BP 100/60 06/30/25 08:47 Pulse Ox 98 06/30/25 08:47 Oxygen Delivery Method Room Air 06/30/25 08:47 BMI result Body Mass Index 41.8 Const General: alert Neck Neck: Yes normal visual inspection, Yes full ROM and Yes no lymphadenopathy Chest Chest palpation & inspection: normal inspection of the chest Resp Effort & Inspection: normal respiratory effort Auscultation: no wheezes and diminished lung sounds Cardio Rate: tachycardic Rhythm: regular rhythm Heart sounds: S1 normal heart sound present and S2 normal heart sound present GI Palpation (GI): Soft to palpation and nontender Auscultation: normal bowel sounds Skin General skin exam: rashes and/or lesions noted Extrem General: No clubbing, No cyanosis and Yes edema Assessment & Plan Assessment & Plan (1) Asthma-COPD overlap syndrome: Code(s): J44.9 - Chronic obstructive pulmonary disease, unspecified Category: Medical (2) ILD (interstitial lung disease): Comment: persistent asthma in addition to chronic smoking related interstitial lung disease Code(s): J84.9 - Interstitial pulmonary disease, unspecified Category: Medical (3) Tobacco dependence: Code(s): F17.200 - Nicotine dependence, unspecified, uncomplicated Category: Medical (4) Cough: Code(s): R05 - Cough Category: Medical Qualifiers: Cough type: chronic Qualified Code(s): R05.3 - Chronic cough (5) Hypogammaglobulinemia: Code(s): D80.1 - Nonfamilial hypogammaglobulinemia Category: Medical (6) Tachyarrhythmia: Code(s): R00.0 - Tachycardia, unspecified Category: Medical Plan stopped Prednisone continue Ipratropium continue Trelegy 200 Tobacco cessation, cutting down down continue singular continue IgG therapy CXR follow-up 6 months Orders: Orders XR chest 2V Today J84.9 - Interstitial pulmonary disease, unspecified Coding Level of Care Code Est Pt Level 4 (41744) [facility] Program cplx 4 or more Diagnoses Asthma-COPD overlap syndrome J44.9 ILD (interstitial lung disease) J84.9 Tobacco dependence F17.200 Chronic cough R05.3 Cough type: chronic Hypogammaglobulinemia D80.1 Tachyarrhythmia R00.0 Time Spent (min) 16
[2025-06-30 08:47] VITALS: BP 100/60; PULSE 118; O2SAT 98; BMI 41.8
== END 2025-06-30 08:59 | disposition home or self-care (01) ==
LOC: HO.HPS 08:46
PROVIDERS: PCP Pediatrics; Visit Provider Hospitalist
DX: J44.9 Chronic obstructive pulmonary disease, unspecified (principal); J84.9 Interstitial pulmonary disease, unspecified; F17.200 Nicotine dependence, unspecified, uncomplicated; R05.3 Chronic cough; D80.1 Nonfamilial hypogammaglobulinemia; R00.0 Tachycardia, unspecified; Z45.42 Encounter for adjustment and management of neurostimulator; G47.33 Obstructive sleep apnea (adult) (pediatric)
CPT/HCPCS: 95977; 99214

== ENCOUNTER → 2025-06-30 08:45 | Outpatient (BNVA) | payer OTHER, SELFPAY | PROVIDERS: PCP Pediatrics; Visit Provider Hospitalist | DX: J44.89 Other specified chronic obstructive pulmonary disease (principal); J84.9 Interstitial pulmonary disease, unspecified; F17.200 Nicotine dependence, unspecified, uncomplicated; R05.3 Chronic cough; D80.1 Nonfamilial hypogammaglobulinemia; R00.0 Tachycardia, unspecified | CPT/HCPCS: 95977; 99212 ==